=== PATIENT | male | born 1990 | race Caucasian/White ===

== ENCOUNTER 2017-06-28 21:08 | Emergency (ER) | payer SELFPAY ==
[2017-06-28 21:09] VITALS: BP 141/89; PULSE 91; RESP 15; TEMP 36.6; BMI 22.3
--- NOTE | 2017-06-28 21:21 | CT_ITS ---
STUDY: CT ABDOMEN AND PELVIS WITH CONTRAST REASON FOR EXAM: Male, 26 years old. Right upper quadrant pain RADIATION DOSAGE (If Supplied By Facility): CTDIvol = ( 12.20 ) mGy, DLP = ( 605.03 ) mGycm TECHNIQUE: Transaxial images were obtained from the dome of the diaphragm to the symphysis pubis without oral contrast. 100 ml of Isovue 300 contrast was administered. Sagittal and coronal images were reconstructed. Individualized dose optimization techniques were used for this CT. COMPARISON: None. FINDINGS: The visualized lung bases are unremarkable. The visualized portions of the heart are within normal limits. Normal liver. Normal gallbladder and extrahepatic biliary system. Normal spleen. Normal pancreas. Normal bilateral adrenal glands. Normal right kidney. Normal left kidney. Normal visualized stomach. Normal small intestine. Normal colon. The appendix is visualized and appears normal. Normal abdominal aorta. Normal inferior vena cava. Normal retroperitoneum. Normal urinary bladder. Normal abdominal wall. Normal osseous structures. CT/Abdomen/Pelvis WITH Contrast IMPRESSION: Normal enhanced CT of the abdomen and pelvis. Electronically Signed: Olman Kang MD at 0:33 EDT Tel , Service support ,
--- NOTE | 2017-06-28 21:25 | ED.VISSUMM ---
- ER Visit Summary Date of Service: 06/28/17 Chief Complaint: Right upper quadrant pain History of Present Illness: The patient is a 26 M with right upper quadrant pain that started 3 days ago. Pain is waxed and waned but never resolved. He describes it as sharp and is worsened by eating. He is reportedly seen at [facility] and on the following day at [facility]. They state labs and ultrasound were unremarkable. He denies fever, nausea, vomiting, or diarrhea. He has been taking Aleve at home the past couple days but was not taking it on a regular basis previously. Physical Examination: Vital signs are unremarkable. Patient's lying in bed. He appears uncomfortable but he is in no acute distress. Head neck examination is unremarkable. Heart is regular rate and rhythm. Lung sounds are clear. Abdomen is soft with tenderness in the right upper quadrant. There is no guarding. Hypoactive bowel sounds are noted throughout. Back examination was no right CVA tenderness. Test Results: CBC and chemistry studies normal. LFTs and lipase are normal. Emergency Department Course and Treatment: Patient was given a single dose of morphine, Zofran, and IV fluids. On repeat evaluation is resting comfortably. When asked how he was feeling he states he still having pain. CT scan abdomen and pelvis has been performed and official report is pending. This will be signed out to oncoming physician. Assuming the CT is negative, I will give him a very short course of Ultram and have referred him to Dr. Maza to for follow-up on Friday or Friday. Treatment Plan: [] Disposition: Pending CT result Impression: Right upper quadrant pain This note was generated with [employer] dictation software. It may contain incorrect words, spelling, and punctuation that were not noted in review of the chart prior to signing ED Disposition - Plan for ED Patient: Chief Complaint: Abd Pain Referrals: Care Physician,No Primary [Primary Care Provider] -
[2017-06-28] MEDS: 0.9% Normal Saline 1,000 ML 150 ML IV (21:39)
[2017-06-28] MEDS: Morphine 4 MG/ML Syringe IV (21:39)
[2017-06-28] MEDS: Ondansetron 4 MG/2 ML Vial IV (21:39)
[2017-06-28 21:53] LABS: Absolute Lymphocyte Count 1.98 X10^3/ul (0.83-4.51); Absolute Neutrophil Count 6.2 X10^3/uL (2.0-7.7); Basophil# 0.03 X10^3/uL; Basophil% 0.3 % (0-1); Eosinophil# 0.12 X10^3/uL; Eosinophils% 1.3 % (0-5); Hematocrit 46.9 % (40-54); Hemoglobin 16.5 g/dl (13.0-16.5); Lymphocyte # 1.98 X10^3/ul (4.0); Lymphocyte % 22.1 % (19-41); Mean Corp Hgb Conc 35.2 g/gl (32-36); Mean Corpuscular Hgb 31.2 pg (27.0-32.0); Mean Corpuscular Volume 88.7 fL (80-94); Mean Platelet Vol. 11.5 fl (6.2-12.0); Monocyte# 0.64 X10^3/uL; Monocyte% 7.2 % (0-10); Neutrophil # 6.15 X10^3/uL (2.7-7.7); Neutrophil % 68.9 % (47-70); Platelet Count 241 K/mm3 (150-450); RBC Distribution Width SD 42.6 fl (35.1-43.9); Red Blood Count 5.29 M/mm3 (4.6-6.2); White Blood Count 8.9 K/mm3 (4.4-11.0)
[2017-06-28 21:58] LABS: POSITIVE COUNT NO; POSITIVE DIFFERENTIAL NO; POSITIVE MORPHOLOGY NO
[2017-06-28 22:08] LABS: AST(SGOT) 21 U/L (15-37); Alanine Aminotransfer ALT/SGPT 27 U/L (16-61); Albumin, Serum 3.9 g/dL (3.2-5.0); Alkaline Phosphatase 52 U/L (45-117); Anion Gap 5 (5-15); BUN 5 mg/dL (7-18); BUN/Creat Ratio 5.3 RATIO (10-20); Calcium,Total 8.9 mg/dL (8.5-10.1); Chloride 105 mmol/L (98-107); Creatinine, Serum 0.95 mg/dL (0.70-1.30); EST Glomerular Filtration Rate 101 mL/min (>60); Est Glom Filt Rate - Afr Amer 122 mL/min (>60); Globulin 3.2 g/dL (2.2-4.2); Glucose 84 mg/dL (74-106); Lipase 76 U/L (73-393); Protein, Total 7.1 g/dL (6.4-8.2); Sodium Level 141 mmol/L (136-145)
[2017-06-28 22:46] VITALS: BP 142/92; PULSE 73; RESP 18; O2SAT 99
--- NOTE | 2017-06-29 00:13 | ED.DEP ---
ED Disposition - Plan for ED Patient: Disposition: Home or Assisted Living Chief Complaint: Abd Pain Instructions: ED Abdominal Pain Unkn Cause Male Prescriptions: traMADol [Ultram] 50 mg PO Q4H PRN PRN 3 Days #14 tablet PRN Reason: Pain Referrals: Dmitri Vick MD [STAFF PHYSICIAN] - As soon as possible
[2017-06-29 01:16] VITALS: BP 131/83; PULSE 69; RESP 18; O2SAT 97
== END 2017-06-29 01:21 | disposition home or self-care (01) ==
PROVIDERS: Emergency Provider Emergency Medicine
DX: R10.11 Right upper quadrant pain (principal)
CPT/HCPCS: 74177; 80048; 80076; 83690; 85025; 96361; 96374; 96375; 99283; J7030; Q9967; J2405

== ENCOUNTER 2017-08-02 15:11 | Emergency (ER) | payer SELFPAY ==
[2017-08-02 15:13] VITALS: PULSE 93; RESP 15; TEMP 36.8; O2SAT 96; BMI 22.7
[2017-08-02 15:15] VITALS: BP 142/99; PULSE 87; RESP 16; O2SAT 96
[2017-08-02 15:41] LABS: Absolute Lymphocyte Count 1.53 X10^3/ul (0.83-4.51); Absolute Neutrophil Count 8.2 X10^3/uL (2.0-7.7); Basophil# 0.02 X10^3/uL; Basophil% 0.2 % (0-1); Eosinophil# 0.02 X10^3/uL; Eosinophils% 0.2 % (0-5); Hematocrit 46.2 % (40-54); Hemoglobin 16.6 g/dl (13.0-16.5); Lymphocyte # 1.53 X10^3/ul (4.0); Lymphocyte % 14.4 % (19-41); Mean Corp Hgb Conc 35.9 g/gl (32-36); Mean Corpuscular Hgb 31.1 pg (27.0-32.0); Mean Corpuscular Volume 86.5 fL (80-94); Mean Platelet Vol. 11.4 fl (6.2-12.0); Monocyte# 0.83 X10^3/uL; Monocyte% 7.8 % (0-10); Neutrophil # 8.22 X10^3/uL (2.7-7.7); Neutrophil % 77.1 % (47-70); Platelet Count 250 K/mm3 (150-450); RBC Distribution Width CV 12.9 % (11.6-14.6); RBC Distribution Width SD 40.7 fl (35.1-43.9); Red Blood Count 5.34 M/mm3 (4.6-6.2); White Blood Count 10.7 K/mm3 (4.4-11.0)
[2017-08-02 15:42] LABS: POSITIVE COUNT NO; POSITIVE DIFFERENTIAL NO; POSITIVE MORPHOLOGY NO
[2017-08-02] MEDS: Ondansetron 4 MG/2 ML Vial IV (15:44)
[2017-08-02] MEDS: 0.9% Normal Saline 1,000 ML 1000 ML IV (15:45)
[2017-08-02] MEDS: Morphine 4 MG/ML Syringe IV (15:45)
[2017-08-02 15:49] VITALS: BP 128/87; PULSE 82; RESP 16; O2SAT 95
[2017-08-02 15:59] LABS: AST(SGOT) 16 U/L (15-37); Alanine Aminotransfer ALT/SGPT 28 U/L (16-61); Albumin, Serum 4.4 g/dL (3.2-5.0); Alkaline Phosphatase 67 U/L (45-117); Anion Gap 6 (5-15); BUN 3 mg/dL (7-18); BUN/Creat Ratio 3.1 RATIO (10-20); Bilirubin, Direct 0.22 mg/dL (0.00-0.30); Calcium,Total 9.4 mg/dL (8.5-10.1); Chloride 104 mmol/L (98-107); Creatinine, Serum 0.97 mg/dL (0.70-1.30); EST Glomerular Filtration Rate 98 mL/min (>60); Est Glom Filt Rate - Afr Amer 119 mL/min (>60); Estimated Creatinine Clearance 119.73 ml/min; Globulin 3.6 g/dL (2.2-4.2); Glucose 90 mg/dL (74-106); Lipase 52 U/L (73-393); Potassium 3.3 mmol/L (3.5-5.1); Sodium Level 139 mmol/L (136-145)
[2017-08-02 16:50] VITALS: BP 132/89; PULSE 88; RESP 16; O2SAT 99
--- NOTE | 2017-08-02 17:11 | EKG12_ITS ---
Test Reason : CP Blood Pressure : / mmHG Vent. Rate : 085 BPM Atrial Rate : 085 BPM P-R Int : 130 ms QRS Dur : 082 ms QT Int : 364 ms P-R-T Axes : 066 045 044 degrees QTc Int : 433 ms Normal sinus rhythm Normal ECG Confirmed by MEGHAN VILLAR, MARGO ([id number]), business editor BRENNON KHAN ([id number] on 08/05/2017 10:15:58 AM Referred By: ANIKA Confirmed By:MARGO CHRISTIANSON MD
--- NOTE | 2017-08-02 18:06 | ED.VISSUMM ---
- ER Visit Summary Date of Service: 08/02/17 Chief Complaint: Upper abdominal pain not chest pain as documented by triage History of Present Illness: The patient is a 26 M who presents with upper abdominal pain for the past several days. He reports nausea and vomiting for 2-3 weeks. He reports diarrhea for the past 4 days. He states he has had a 6 pound weight loss over the past month. He states the pain is sharp. The pain does not radiate. He denies any intolerance to any specific foods. Says any food causes his pain to be worse. He denies hematemesis, melena hematochezia. He was a drinker until 3 weeks ago. He states he did drink heavily at one time. He has no history of pancreatitis. He denies fever, chills night sweats. He denies any ocular, visual auditory symptoms. Denies chest pain, palpitations or rapid heartbeat. He denies dyspnea on exertion or orthopnea, or PND. He does report slight cough occasionally. He is a non-smoker. He denies dysuria, frequency, urgency or hematuria. He denies myalgias, arthralgias or back pain. He denies rash. He denies any anesthesia, paresthesia or motor weakness. He denies headache. He denies bruising easily. Physical Examination: Patient vitals are micromelic blood pressure 142/99. Head is atraumatic normocephalic. Pupils are equal round reactive. Extraocular muscles are intact. TMs are pearly white with landmarks noted. Nares patent with no drainage. Posterior pharynx without erythema or exudate. Uvula is midline. There is no dysphonia or dysphasia. Trachea is midline. There is no stridor with auscultation of the neck. Heart is regular without murmur, gallop or rub. S1 and S2 are normal. Lungs are clear to auscultation with good movement of air bilaterally. Abdomen is remarkable for tenderness in the epigastric area. There is no hepatosplenomegaly. Negative Shea sign. There are no dermatologic lesions noted. There is no palpable pulsatile mass abdominal bruit. There is evidence of umbilical or inguinal hernia. There is no CVA tenderness noted. He is alert oriented with nonfocal neurologic exam. Test Results: CBC is unremarkable. BMP is unremarkable. Hepatic and lipase are unremarkable. Emergency Department Course and Treatment: With history of heavy drinking and upper abdominal pain hepatic and lipase were obtained to evaluate for alcoholic liver disease, pancreatitis etc. CBC was obtained to evaluate for anemia or possible leukemia. In light of his complaint of vomiting weight loss BMP was obtained to assess electrolytes and BUN and creatinine to calculate glomerular filtration rate. Treatment Plan: Patient was told the etiology of his pain is unknown. Recommend follow-up at [facility] since he is uninsured. Disposition: Discharged to home with family Impression: Bilateral upper abdominal pain with nausea vomiting of unknown cause This note was generated with clinovo dictation software. It may contain incorrect words, spelling, and punctuation that were not noted in review of the chart prior to signing ED Disposition - Plan for ED Patient: Disposition: Home or Assisted Living Chief Complaint: Chest Pain Instructions: ED Abdominal Pain Unkn Cause Male Referrals: Macy De [facility]se[facility] [NON-STAFF] - Care Physician,No Primary [Primary Care Provider] - 3-5 Days Additional Instructions: Recommend purchasing Pepcid [id number] medication and taking 1 tablet in the morning 1 tablet in the evening for the next 2-3 weeks to determine if there is any improvement.
--- NOTE | 2017-08-02 18:11 | ED.DCSUM_ITS ---
- ER Visit Summary Date of Service: 08/02/17 Chief Complaint: Upper abdominal pain not chest pain as documented by triage History of Present Illness: The patient is a 26 M who presents with upper abdominal pain for the past several days. He reports nausea and vomiting for 2- 3 weeks. He reports diarrhea for the past 4 days. He states he has had a 6 pound weight loss over the past month. He states the pain is sharp. The pain does not radiate. He denies any intolerance to any specific foods. Says any food causes his pain to be worse. He denies hematemesis, melena hematochezia. He was a drinker until 3 weeks ago. He states he did drink heavily at one time. He has no history of pancreatitis. He denies fever, chills night sweats. He denies any ocular, visual auditory symptoms. Denies chest pain, palpitations or rapid heartbeat. He denies dyspnea on exertion or orthopnea, or PND. He does report slight cough occasionally. He is a non-smoker. He denies dysuria, frequency, urgency or hematuria. He denies myalgias, arthralgias or back pain. He denies rash. He denies any anesthesia, paresthesia or motor weakness. He denies headache. He denies bruising easily. Physical Examination: Patient vitals are micromelic blood pressure 142/99. Head is atraumatic normocephalic. Pupils are equal round reactive. Extraocular muscles are intact. TMs are pearly white with landmarks noted. Nares patent with no drainage. Posterior pharynx without erythema or exudate. Uvula is midline. There is no dysphonia or dysphasia. Trachea is midline. There is no stridor with auscultation of the neck. Heart is regular without murmur, gallop or rub. S1 and S2 are normal. Lungs are clear to auscultation with good movement of air bilaterally. Abdomen is remarkable for tenderness in the epigastric area. There is no hepatosplenomegaly. Negative Shea sign. There are no dermatologic lesions noted. There is no palpable pulsatile mass abdominal bruit. There is evidence of umbilical or inguinal hernia. There is no CVA tenderness noted. He is alert oriented with nonfocal neurologic exam. Test Results: CBC is unremarkable. BMP is unremarkable. Hepatic and lipase are unremarkable. Emergency Department Course and Treatment: With history of heavy drinking and upper abdominal pain hepatic and lipase were obtained to evaluate for alcoholic liver disease, pancreatitis etc. CBC was obtained to evaluate for anemia or possible leukemia. In light of his complaint of vomiting weight loss BMP was obtained to assess electrolytes and BUN and creatinine to calculate glomerular filtration rate. Treatment Plan: Patient was told the etiology of his pain is unknown. Recommend follow-up at [facility] since he is uninsured. Disposition: Discharged to home with family Impression: Bilateral upper abdominal pain with nausea vomiting of unknown cause This note was generated with [employer] dictation software. It may contain incorrect words, spelling, and punctuation that were not noted in review of the chart prior to signing ED Disposition - Plan for ED Patient: Disposition: Home or Assisted Living Chief Complaint: Chest Pain Instructions: ED Abdominal Pain Unkn Cause Male Referrals: [facility] De [facility] [NON-STAFF] - Care Physician,No Primary [Primary Care Provider] - 3-5 Days Additional Instructions: Recommend purchasing Pepcid [id number] medication and taking 1 tablet in the morning 1 tablet in the evening for the next 2-3 weeks to determine if there is any improvement.
[2017-08-02 18:17] VITALS: BP 145/103; PULSE 92; RESP 19; O2SAT 96
[2017-08-02 18:50] VITALS: BP 141/97; PULSE 89; RESP 17; O2SAT 98
== END 2017-08-02 18:51 | disposition home or self-care (01) ==
PROVIDERS: Emergency Provider Emergency Medicine
DX: R10.12 Left upper quadrant pain (principal); R10.11 Right upper quadrant pain; R11.2 Nausea with vomiting, unspecified
CPT/HCPCS: 80048; 80076; 83690; 85025; 93005; 96361; 96374; 96375; 99284; J7030; A4216; J2405

== ENCOUNTER 2017-08-03 11:07 | Emergency (ER) | payer SELFPAY ==
[2017-08-03 11:08] VITALS: BP 131/88; PULSE 94; RESP 17; TEMP 37.1; O2SAT 97; BMI 23.1
[2017-08-03 11:36] LABS: Absolute Lymphocyte Count 1.75 X10^3/ul (0.83-4.51); Absolute Neutrophil Count 5.7 X10^3/uL (2.0-7.7); Basophil# 0.01 X10^3/uL; Basophil% 0.1 % (0-1); Eosinophil# 0.08 X10^3/uL; Hematocrit 43.9 % (40-54); Hemoglobin 15.7 g/dl (13.0-16.5); Lymphocyte # 1.75 X10^3/ul (4.0); Lymphocyte % 21.1 % (19-41); Mean Corp Hgb Conc 35.8 g/gl (32-36); Mean Corpuscular Hgb 31.4 pg (27.0-32.0); Mean Corpuscular Volume 87.8 fL (80-94); Mean Platelet Vol. 11.4 fl (6.2-12.0); Monocyte# 0.76 X10^3/uL; Monocyte% 9.2 % (0-10); Neutrophil # 5.69 X10^3/uL (2.7-7.7); Neutrophil % 68.5 % (47-70); Platelet Count 242 K/mm3 (150-450); RBC Distribution Width CV 13.1 % (11.6-14.6); RBC Distribution Width SD 41.3 fl (35.1-43.9); White Blood Count 8.3 K/mm3 (4.4-11.0)
[2017-08-03 11:41] LABS: POSITIVE COUNT NO; POSITIVE DIFFERENTIAL NO; POSITIVE MORPHOLOGY NO
[2017-08-03 11:48] LABS: AST(SGOT) 19 U/L (15-37); Alanine Aminotransfer ALT/SGPT 24 U/L (16-61); Albumin, Serum 3.9 g/dL (3.2-5.0); Alkaline Phosphatase 63 U/L (45-117); Anion Gap 4 (5-15); BUN 5 mg/dL (7-18); Bilirubin, Direct 0.19 mg/dL (0.00-0.30); Calcium,Total 8.8 mg/dL (8.5-10.1); Chloride 105 mmol/L (98-107); Creatinine, Serum 1.01 mg/dL (0.70-1.30); EST Glomerular Filtration Rate 94 mL/min (>60); Est Glom Filt Rate - Afr Amer 113 mL/min (>60); Globulin 3.6 g/dL (2.2-4.2); Glucose 89 mg/dL (74-106); Lipase 127 U/L (73-393); Potassium 3.5 mmol/L (3.5-5.1); Protein, Total 7.5 g/dL (6.4-8.2); Sodium Level 138 mmol/L (136-145)
[2017-08-03] MEDS: 0.9% Normal Saline 1,000 ML 1000 ML IV (11:50)
[2017-08-03] MEDS: Ondansetron 4 MG/2 ML Vial IV (11:50)
[2017-08-03] MEDS: Morphine 4 MG/ML Syringe IV (11:52)
--- NOTE | 2017-08-03 11:52 | ED.RN ---
PT APPEARS TO BE RESTING COMFORTABLY IN BED. STATES PAIN IS 10/10. ON CELL PHONE.
--- NOTE | 2017-08-03 11:55 | CT_ITS ---
STUDY: CT ABDOMEN AND PELVIS WITHOUT CONTRAST REASON FOR EXAM: Male, 26 years old. Right-sided abdominal pain RADIATION DOSAGE (If Supplied By Facility): CTDIvol = ( 6.40 ) mGy, DLP = ( 350.13 ) mGycm TECHNIQUE: Transaxial images were obtained from the dome of the diaphragm to the symphysis pubis without oral contrast, and without intravenous contrast. Sagittal and coronal images were reconstructed. Individualized dose optimization techniques were used for this CT. COMPARISON: 06/28/2017 FINDINGS: The visualized lung bases are unremarkable. The visualized portions of the heart are within normal limits. Normal liver. Normal gallbladder and extrahepatic biliary system. Normal spleen. Normal pancreas. Normal bilateral adrenal glands. Normal right kidney. Normal left kidney. Normal visualized stomach. Normal small intestine. Normal colon. The appendix is visualized and appears normal. Normal abdominal aorta. Normal inferior vena cava. Normal retroperitoneum. Normal urinary bladder. Normal abdominal wall. Nondisplaced bilateral pars interarticularis defects at the L5 level. CT/Abdomen/Pelvis without Cont IMPRESSION: No evidence of appendicitis, acute intestinal pathology or acute obstructive uropathy. Electronically Signed: Dwain Shipley MD at 12:43 EDT Tel , Service support ,
--- NOTE | 2017-08-03 11:58 | ED.DCSUM_ITS ---
- ER Visit Summary Date of Service: 08/03/17 Chief Complaint: [] rt Sided abdominal pain that began this morning History of Present Illness: The patient is a 26 M [] patient reports he has been having right-sided abdominal pain that began this morning it was worse when he was in restorationist today and he was brought to the emergency department he has had chronic diarrhea for the last 5 days consisting of water he has not been exposed anyone who is been ill, no tainted food, he is able to eat and drink his bowel bladder habits otherwise unremarkable. He initially indicated that he has never had this type of pain in the past, he also indicates that he was a heavy drinker in the past but nothing recent he has had no fever no cough he takes his hand and draws across the right upper quadrant as focus of pain Further conversations with the patient's family apparently has had multiple ultrasounds in the past possibly CAT scans in the past, and other studies although he indicates he does not have abdominal pain I questioned him that if he had the studies is likely that he does have abdominal pain and that is why the studies were ordered then he recalls a prior history of abdominal pain and in fact he apparently was seen yesterday in the emergency department for complaints of abdominal pain So based on additional information it appears this pain is really not new when I reviewed the computer he in fact has seen a surgeon for right upper quadrant pain and was diagnosed with gastritis given that all of his other studies were negative in the past Physical Examination: [] He is in no distress his vital signs are normal head neck chest unremarkable the abdomen is soft he complains subjectively of vague pain to the right upper abdomen there is no rebound or guarding there is no pain below the bellybutton backs unremarkable upper lower extremity's are normal he is awake moving all 4 is in the room with his mother Test Results: [] Emergency Department Course and Treatment: [] It is a very convoluted story on the part of the patient based on my understanding and the data in the computer it appears this abdominal pain is not new but rather something that is acute and recurrent and he has had extensive prior outpatient evaluation for, however given that he is coming back within 12 hours of her prior ER visit he will obtain IV fluids screening labs CT of abdomen The patient studies including the CT are completely unremarkable please see those reports I have explained all this to the patient. I have explained to him that when he provides history from this point forward he should explained providers in fact he has a history of this type of abdominal pain his workup has been unremarkable Been seen by multiple providers as an outpatient for this abdominal pain he is instructed to follow the instructions she was given by those providers including the use of proton pump inhibitors either by prescription or over-the- counter, bland diet and following up with them for further management Treatment Plan: [] Disposition: [] Stable home Impression: [] Recurrent abdominal pain This note was generated with [employer] dictation software. It may contain incorrect words, spelling, and punctuation that were not noted in review of the chart prior to signing ED Disposition - Plan for ED Patient: Chief Complaint: Abd Pain Referrals: Care Physician,No Primary [Primary Care Provider] -
[2017-08-03 12:15] LABS: Bacteria 0 SEEN /hpf (None Seen); Mucous, Urine 0 SEEN /hpf (<or=2+); Red Blood Cells-Urine 0 SEEN /hpf (0-5); Squamous Epithelial Cells - UA 0 SEEN /hpf (0-5); White Blood Cells 0 SEEN /hpf (0-5)
[2017-08-03 12:19] LABS: Color, Urine Yellow (Yellow); Glucose, Dipstick Normal (Normal); Ketone-Dipstick Negative (Negative); Leukocyte Esterase-Dipstick Negative /ul (Negative); Nitrite-Dipstick Negative (Negative); Occult Blood-Urine Negative /ul (Negative); Protein-Dipstick Negative (Negative); Specific Gravity, Urine 1.015 (1.002-1.030); Urine Bilirubin Dipstick Negative (Negative); Urine Clarity Clear (Clear); Urine Urobilinogen Normal (Normal)
--- NOTE | 2017-08-03 14:01 | ED.DEP ---
ED Disposition - Plan for ED Patient: Chief Complaint: Abd Pain Instructions: ED Abdominal Pain Unkn Cause Referrals: Care Physician,No Primary [Primary Care Provider] - [facility] [NON-STAFF] -
[2017-08-03 14:36] VITALS: BP 123/87; PULSE 87; RESP 16; O2SAT 98
== END 2017-08-03 14:37 | disposition home or self-care (01) ==
PROVIDERS: Emergency Provider Emergency Medicine
DX: R10.11 Right upper quadrant pain (principal)
CPT/HCPCS: 74176; 80048; 80076; 81001; 83690; 85025; 96361; 96374; 96375; 99283; J7030; A4216; J2405

== ENCOUNTER 2017-08-14 22:51 | Emergency (ER) | payer SELFPAY ==
[2017-08-14 22:52] VITALS: BP 129/73; PULSE 96; RESP 12; TEMP 35.8; O2SAT 95; BMI 23.1
--- NOTE | 2017-08-14 22:54 | RAD_ITS ---
STUDY: X-RAY - PELVIS AND LEFT HIP REASON FOR EXAM: Male, 26 years old. Falling injury. TECHNIQUE: Radiological exam, hip, unilateral, with pelvis when performed; 2 or 3 views. COMPARISON: None. FINDINGS: There is a non-specific bowel gas pattern. Normal visualized soft tissue structures. Normal bilateral iliac wings, sacroiliac joints and visualized sacrum. Normal bilateral superior and inferior pubic rami. Normal pubic symphysis. Normal bilateral ischial tuberosities. Normal visualized femoral head. Normal acetabulum. Normal hip joint. RAD/Hip 2-3 Views with Pelvis IMPRESSION: Normal x-ray examination of the pelvis and hip. Electronically Signed: Gisella Parr MD at 23:30 EDT , Service support ,
--- NOTE | 2017-08-14 22:54 | RAD_ITS ---
STUDY: X-RAY - LEFT KNEE REASON FOR EXAM: Male, 26 years old. Pain after fall TECHNIQUE: Two view(s) of the knee were obtained. COMPARISON: None. FINDINGS: The distal femur is unremarkable. The proximal tibia is unremarkable. Normal medial femorotibial compartment. Normal lateral femorotibial compartment. Normal patellofemoral articulation. There is no fullness above the patella. The soft tissue structures are unremarkable. RAD/Knee 1 or 2 Views IMPRESSION: No acute abnormalities are seen in the left knee. Electronically Signed: Maryam Sal MD at 23:31 EDT Tel Direct: [phone], Service support ,
--- NOTE | 2017-08-14 23:00 | RAD_ITS ---
STUDY: X-RAY - LEFT FEMUR REASON FOR STUDY: Male, 26 years old. Falling injury of the left upper leg. TECHNIQUE: Radiological exam, femur, minimum 2 views COMPARISON: None. FINDINGS: Normal visualized femur. Normal visualized soft tissue structure. There is no demonstrated fracture or destructive process. RAD/Femur Min 2 Views IMPRESSION: Normal x-ray examination of the femur. Electronically Signed: Gisella Parr MD at 23:26 EDT , Service support ,
--- NOTE | 2017-08-15 00:09 | ED.DCSUM_ITS ---
- ER Visit Summary Date of Service: 08/15/17 Chief Complaint: Left thigh pain History of Present Illness: The patient is a 26 M with no primary care physician. Reports that approximately 10:00 this evening he tripped over a curb and fell and landing on his left hip. Reports he has a sharp pains 10 at 10 severity. Is worsened by walking. Is not taking anything for this. Denies any paresthesias distally. No blow to the head or loss of consciousness. No other injuries or complaints. Physical Examination: Vitals: Stable. Afebrile. Neck: No vertebral tenderness. Full ROM without difficulty. Cleared by NEXUS criteria. Back: No vertebral tenderness. General: A&O x 3. NAD. Cardiovascular exam: Regular rate and rhythm, no murmur, rub or gallop. Respiratory exam: Chest nontender. No crepitus. Clear to auscultation bilaterally. No wheezes or stridor. Abdominal exam: Soft, nontender, nondistended, normal bowel sounds. No pain in RUQ or LUQ specifically. No peritoneal signs. Extremity: Moderate tenderness palpation over the left greater trochanter. Mild tenderness palpation over the entire left thigh both anteriorly and posteriorly. Mild tenderness palpation is diffuse over his knee. No pain or ligamentous instability with anterior posterior drawer or mediolateral stress. He has good range of motion without any difficulty.. Test Results: Triage x-rays of the left hip, femur, and knee are normal. Emergency Department Course and Treatment: Patient was treated with naproxen. Treatment Plan: Patient will be discharged on naproxen. He will be placed on crutches at his request. Instructed to follow-up the [facility] in 1 week if not improving. Disposition: To home in improved and stable condition. Impression: 1. Left hip contusion. 2. Fall. This note was generated with [employer] dictation software. It may contain incorrect words, spelling, and punctuation that were not noted in review of the chart prior to signing ED Disposition - Plan for ED Patient: Disposition: Home or Assisted Living Chief Complaint: Lower Extremity Injury Instructions: ED Contusion Hip Prescriptions: Naproxen [Naprosyn] 500 mg PO BID #20 tablet Referrals: Macy De Jesus [NON-STAFF] - 1 Week if not improving
[2017-08-15] MEDS: Naproxen 250 MG Tablet 500 MG PO (00:37)
== END 2017-08-15 00:44 | disposition home or self-care (01) ==
LOC: ED 08-15 00:33
PROVIDERS: Emergency Provider Emergency Medicine
DX: S70.02XA Contusion of left hip, initial encounter (principal); W18.09XA Striking against other object with subsequent fall, initial encounter; Y93.9 Activity, unspecified; Y92.9 Unspecified place or not applicable
CPT/HCPCS: 73502; 73552; 73560; 99284

== ENCOUNTER 2017-08-15 07:44 | Day surgery (SDC) | payer SELFPAY ==
[2017-08-15] VITALS (7 sets, daily range): BP systolic 111–135; BP diastolic 74–82; PULSE 61–73; RESP 14–18; TEMP 35.5–36.8; O2SAT 93–97; BMI 21.9
--- NOTE | 2017-08-15 | GASB_PTH ---
PATIENT: SEINA JOSHUA III LOC: EN U#:[id number] AGE/SX: 26/M ROOM: RE08/15/[address]: Dr. Dmitri Vick MD : 1990 BED: DIS: 08/15/2017 SPEC #: [id number] RECD: 08/15/17 14:19 STATUS: AYOJeancarlos POLI #: [id number] ANJALI: 08/15/17 00:[address]: Dmitri Vick DEPT: SURGICAL PATHOLOGY RECD BY: Erik العلي ENTERED: 08/18/17 08:46 SP TYPE: Gastric Bx OTHR DR: No Primary Care Phys Tissues: Gastric mucous membrane Procedures: Surgery Specimen Level IV HEADER OPERATION: EGD PRE-OP DIAGNOSIS: Epigastric pain TISSUE SUBMITTED: Antral biopsy for H. pylori and path MICROSCOPIC DIAGNOSIS Antral biopsy: Chronic active gastritis. SJ:jair 08/19/17 COMMENT The results of immunohistochemistry for Helicobacter pylori will be reported separately ([id number]). MICROSCOPIC DESCRIPTION Slides are reviewed. GROSS DESCRIPTION Received in fixative is one container labeled with the patient's name and designated antral biopsy. The specimen consists of one irregular fragment of light montano soft tissue that measures 0.3 x 0.2 x 0.1 cm. The specimen is totally submitted in one cassette. / SJ:rg 08/18/17 TC:2 [facility]: [id number]
--- NOTE | 2017-08-15 | IMM_PTH ---
PATIENT: SIENA JOSHUA III LOC: EN U#:[id number] AGE/SX: 26/M ROOM: RE08/15/[address]: Dr. Dmitri Vick MD : 1990 BED: DIS: 08/15/2017 SPEC #: [id number] RECD: 08/19/17 13:09 STATUS: IVAN ASHTON #: [id number] ANJALI: 08/15/17 00:[address]: Dmitri Vick DEPT: IMMUNOHISTOCHEMISTRY RECD BY: Yeni Dougherty ENTERED: 08/19/17 13:09 SP TYPE: IMMUNO OTHR DR: No Primary Care Phys Tissues: Stomach, NOS Procedures: H Pylori (initial) PHYSICIAN & INSTITUTION [place] [id number] SPECIMEN INFORMATION: Tissue Source: Antral biopsy Clinical Info: Epigastric pain Specimen Number: [id number] CPT code: 32917 METHODOLOGY: Deparaffinized sections of prefer/formalin-fixed tissue or PAP/DQ stained slides are incubated with monoclonal/polyclonal antibodies/oligonucleotide probes. Localization is made via biotin free immunoperoxidase method. Appropriate controls are performed and reacted as expected. Results on target cell population are indicated in the following table: RESULTS: ANTIBODY / CLONE RESULT H Pylori (polyclonal) positive These tests were developed and their performance characteristics determined by [facility]. They may not have been cleared or approved by the U.S. Food and Drug Administration. The FDA has determined that such clearance or approval is not necessary. INTERPRETATION: Antral biopsy: Positive for Helicobacter pylori organisms. TIKI:jair 08/20/17
--- NOTE | 2017-08-15 09:14 | OP.PCM_ITS ---
Problem List (1) Epigastric abdominal pain Status: Acute Report of Operation Date of Procedure: 08/15/17 Pre-Operative Diagnosis: Epigastric pain Post-Operative Diagnosis: 1. Small hiatal hernia. 2. Gastritis with punctate bleeding Surgery/Procedure Performed:: EGD with biopsy Specimen's removed: Antrum biopsy Description of Procedure: The major risks and benefits associated with the procedure were explained to the patient in detail. The patient verbalized understanding and agreement with the same. The patient was then placed in the left lateral decubitus position. IV sedation was started by anesthesia. The endoscope was then advanced under direct visualization over the tongue, into the esophagus , stomach and duodenum. It was slowly withdrawn and the mucosa was carefully evaluated. Duodenal mucosal abnormalities were not visualized. The pylorus and antrum of the stomach had punctate bleeding and gastritis. The remainder of the stomach was normal and gastric folds are normal in the remainder of the stomach. Retroflexed views of the stomach did reveal small hiatal hernia. A biopsy of the antrum was performed with cold forceps. The scope was then withdrawn through the GE junction and careful examination did not demonstrate any mucosal abnormalities. No evidence of Lane's esophagus was apparent. Careful examination of the remainder of the esophagus was normal. The scope was then withdrawn from the patient and the procedure terminated. It was well tolerated and there were no immediate complications.
== END 2017-08-15 10:02 | disposition home or self-care (01) ==
LOC: EN 07:46 → AC 07:47
PROVIDERS: Visit Provider Surgery
PROC: 0DJ08ZZ Inspection of Upper Intestinal Tract, Via Natural or Artificial Opening Endoscopic (ICD-10-PCS; CPT 43235; principal; 2017-08-15 08:40)
DX: K29.50 Unspecified chronic gastritis without bleeding (principal); K44.9 Diaphragmatic hernia without obstruction or gangrene; B96.81 Helicobacter pylori [H. pylori] as the cause of diseases classified elsewhere; F17.200 Nicotine dependence, unspecified, uncomplicated
CPT/HCPCS: 43239; 88305; 88342; J7120

== ENCOUNTER 2017-08-19 00:01 | Emergency (ER) | payer SELFPAY ==
[2017-08-19 00:01] VITALS: BP 108/75; PULSE 102; RESP 18; TEMP 36.6; O2SAT 95; BMI 21.6
--- NOTE | 2017-08-19 01:05 | ED.DCSUM_ITS ---
- ER Visit Summary Date of Service: 08/19/17 Chief Complaint: [] Low back injury History of Present Illness: The patient is a 26 M patient was seen 3 days ago at our facility after a fall. He was given ibuprofen. He has been using this and Tylenol. Continues to have low back discomfort after he tripped off of a curb and fell onto his hip. He is having some sharp low back pain or radiation to the legs. No associated symptoms. Physical Examination: [] Vital signs reviewed General: Well-nourished well-developed Head: Normocephalic atraumatic Eyes: Pupils equal round and reactive to light extraocular movements intact ENT: TMs clear no hemotympanum no trauma Neck: Nontender full range of motion Cardiovascular: Regular rate rhythm no murmurs normal S1-S2 Respiratory: No distress clear to auscultation bilaterally chest nontender Abdomen: Soft nontender nondistended normal bowel sounds no masses Back: Tenderness diffuse low back without swelling or deformity. Decreased range of motion secondary to pain. Extremities: Nontender active range of motion ?4 extremities no trauma Skin: Normal color no trauma Neuro alert oriented cranial nerves II through XII intact normal strength sensation reflexes Test Results: [] Emergency Department Course and Treatment: [] I discussed with the patient that it can take 10-14 days for his low back strain to heal. I do not think he needs imaging studies. He is given a shot of morphine. Will continue Tylenol and ibuprofen as an outpatient. Treatment Plan: [] Disposition: [] Impression: [] Low back strain status post fall This note was generated with [employer] dictation software. It may contain incorrect words, spelling, and punctuation that were not noted in review of the chart prior to signing ED Disposition - Plan for ED Patient: Chief Complaint: Back Referrals: Care Physician,No Primary [Primary Care Provider] -
--- NOTE | 2017-08-19 01:05 | ED.DEP ---
ED Disposition - Plan for ED Patient: Disposition: Home or Assisted Living Chief Complaint: Back Instructions: ED Sprain Strain Lumbar Referrals: Care Physician,No Primary [Primary Care Provider] - René Cortez DO [NON CLINICAL AFFILIATE] -
[2017-08-19] MEDS: Morphine 4 MG/ML Syringe IM (01:11)
[2017-08-19 01:30] VITALS: RESP 16
== END 2017-08-19 01:34 | disposition home or self-care (01) ==
PROVIDERS: Emergency Provider Emergency Medicine
DX: S39.012A Strain of muscle, fascia and tendon of lower back, initial encounter (principal); W01.0XXA Fall on same level from slipping, tripping and stumbling without subsequent striking against object, initial encounter; Y93.9 Activity, unspecified; Y92.9 Unspecified place or not applicable
CPT/HCPCS: 96372; 99282

== ENCOUNTER 2017-08-21 23:24 | Observation (INO) | payer MEDICAID, SELFPAY ==
[2017-08-21 23:27] VITALS: BP 160/98; PULSE 106; RESP 18; TEMP 36.7; O2SAT 99; BMI 21.8
--- NOTE | 2017-08-21 23:39 | EKG12_ITS ---
Test Reason : GI BLEED Blood Pressure : / mmHG Vent. Rate : 094 BPM Atrial Rate : 094 BPM P-R Int : 138 ms QRS Dur : 084 ms QT Int : 356 ms P-R-T Axes : 058 042 037 degrees QTc Int : 445 ms Normal sinus rhythm with sinus arrhythmia Normal ECG Confirmed by MEGHAN VILLAR, MARGO ([id number]), social media editor ROSEMARY VENTURA ([id number]) on 08/26/2017 2:14:07 PM Referred By: TOM Confirmed By:MARGO CHRISTIANSON MD
[2017-08-21 23:54] LABS: Absolute Lymphocyte Count 2.04 X10^3/ul (0.83-4.51); Absolute Neutrophil Count 5.2 X10^3/uL (2.0-7.7); Basophil# 0.01 X10^3/uL; Basophil% 0.1 % (0-1); Eosinophil# 0.09 X10^3/uL; Eosinophils% 1.1 % (0-5); Hematocrit 43.9 % (40-54); Hemoglobin 15.2 g/dl (13.0-16.5); Lymphocyte # 2.04 X10^3/ul (4.0); Lymphocyte % 25.4 % (19-41); Mean Corp Hgb Conc 34.6 g/gl (32-36); Mean Corpuscular Hgb 30.5 pg (27.0-32.0); Mean Corpuscular Volume 88.2 fL (80-94); Mean Platelet Vol. 11.3 fl (6.2-12.0); Monocyte% 8.7 % (0-10); Neutrophil # 5.19 X10^3/uL (2.7-7.7); Neutrophil % 64.6 % (47-70); Platelet Count 223 K/mm3 (150-450); RBC Distribution Width CV 13.1 % (11.6-14.6); RBC Distribution Width SD 42.4 fl (35.1-43.9); Red Blood Count 4.98 M/mm3 (4.6-6.2)
[2017-08-22] MEDS: 0.9% Normal Saline 1,000 ML 1000 ML IV
[2017-08-22 00:03] LABS: POSITIVE COUNT NO; POSITIVE DIFFERENTIAL NO; POSITIVE MORPHOLOGY NO
[2017-08-22] MEDS: Ondansetron 4 MG/2 ML Vial IV (00:04)
[2017-08-22] MEDS: Morphine 4 MG/ML Syringe IV (00:04)
[2017-08-22 00:10] VITALS: BP 124/81; BP 129/90; BP 132/85; PULSE 81; PULSE 88; PULSE 99
[2017-08-22 00:25] LABS: ALB/GLOB Ratio 1.1 RATIO (0.9-2.4); AST(SGOT) 21 U/L (15-37); Alanine Aminotransfer ALT/SGPT 23 U/L (16-61); Albumin, Serum 3.9 g/dL (3.2-5.0); Alkaline Phosphatase 57 U/L (45-117); Anion Gap 7 (5-15); BUN 6 mg/dL (7-18); BUN/Creat Ratio 5.9 RATIO (10-20); Calcium,Total 8.7 mg/dL (8.5-10.1); Chloride 102 mmol/L (98-107); Creatinine, Serum 1.02 mg/dL (0.70-1.30); EST Glomerular Filtration Rate 93 mL/min (>60); Est Glom Filt Rate - Afr Amer 112 mL/min (>60); Estimated Creatinine Clearance 109.09 ml/min; Globulin 3.5 g/dL (2.2-4.2); Glucose 90 mg/dL (74-106); Lipase 66 U/L (73-393); Potassium 3.3 mmol/L (3.5-5.1); Protein, Total 7.4 g/dL (6.4-8.2); Sodium Level 140 mmol/L (136-145)
[2017-08-22 00:29] LABS: Prothrombin Time (Protime)PT. 13.2 SECONDS (11.7-14.9)
--- NOTE | 2017-08-22 01:22 | ED.DCSUM_ITS ---
- ER Visit Summary Date of Service: 08/22/17 Chief Complaint: Abdominal pain History of Present Illness: The patient is a 26 M who presents with abdominal pain and hematemesis. He has a history of known gastritis. He did have some bleeding on recent EGD. He states over the last 2-3 days he has had multiple episodes of emesis with bright red blood. His last episode was about 15 minutes prior to arrival here. He states he vomited multiple times and is been much worse since about 6:00 today. He denies any recent NSAID use. He does occasionally drink alcohol. He denies diarrhea melanotic stools hematochezia. He complains of epigastric abdominal pain. Patient states he has been lightheaded and dizzy and felt as if he was going to pass out on presentation here to triage. Physical Examination: Heart rate 106 vitals otherwise normal No apparent distress Heart regular rhythm slightly tachycardic Lungs are clear Abdomen soft Alert Test Results: EKG shows normal sinus rhythm at a rate of 94. Labs unremarkable with normal hemoglobin. Orthostatic vital signs were negative. Emergency Department Course and Treatment: Patient was given morphine and Zofran for symptoms. He was given a Protonix bolus and started on an infusion. Orthostatic vital signs however were unremarkable and he did repeat return with normal hemoglobin and his heart rate improved with IV fluids. Protonix infusion discontinued. I spoke to Dr. Nava chouting the patient's case. He did note that he was also positive for H pylori and will need to be started on quadruple therapy. I am concerned given the patient's report of multiple episodes of hematemesis his initial tachycardia and dizziness and felt that at minimum he should be observed for repeat hemoglobins and monitoring. Patient discussed the hospitalist will be admitted. Treatment Plan: [] Disposition: Admit Impression: Upper GI bleed Gastritis This note was generated with [employer] dictation software. It may contain incorrect words, spelling, and punctuation that were not noted in review of the chart prior to signing ED Disposition - Plan for ED Patient: Chief Complaint: GI Bleed Referrals: Care Physician,No Primary [Primary Care Provider] -
--- NOTE | 2017-08-22 01:34 | PCM.HP.STD ---
History of Present Illness Date of Admission: 08/22/17 Chief Complaint: Hematemesis. The patient is a 26 year old M with no significant past medical history presented to the emergency room because of hematemesis and abdominal pain. He started throwing up blood since yesterday evening, around 12 episodes of hematemesis with small to moderate amount of bright red blood, associated with vague abdominal pain and without aggravating or relieving factors. He described this abdominal pain as vague, generalized abdominal pain, has been going on for some time, more on the epigastric region, not radiating and without aggravating or relieving factors. He denied chest pain or shortness of breath. He reports that he is dizzy and lightheaded upon arrival to ER. He denied syncope or presyncope. He denied chest pain or shortness of breath. He underwent upper EGD on August 15, 2017 for epigastric pain and he was found to have small hiatal hernia, gastritis with punctate bleeding. His antral biopsy was positive for Helicobacter pylori. In the emergency department, he was slightly tachycardic, blood pressure stable, afebrile, pulse ox is maintained on room air. His routine blood work was remarkable for potassium of 3.3, otherwise normal. Pro time and INR were normal. LFT and lipase were normal. EKG revealed normal sinus rhythm without evidence of acute ischemic changes or cardiac arrhythmias. He is being admitted for upper GI bleed due to gastritis and positive Helicobacter pylori on antral biopsy. 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 Psychiatric History: No pertinent psych hx Lives: With Family Smoking Status: Current every day smoker Alcohol: None Drugs: None - *Family History Maternal Family History: Family History (Last Reviewed 08/07/17 @ 09:35 by Toshia Barbour) Father Asthma Hypertension CAD (coronary artery disease) Cancer Seizures CVA (cerebral vascular accident) History Items: No pertinent history Paternal Family History: Family History (Last Reviewed 08/07/17 @ 09:35 by Toshia Barbour) Father Asthma Hypertension CAD (coronary artery disease) Cancer Seizures CVA (cerebral vascular accident) History Items: No pertinent history Review of Systems Constitutional: Denies: Anorexia, Chills, Fever, Weakness Eyes: Denies: Blurred vision, Double vision, Drainage, Redness HEENT: Denies: Difficulty Hearing, Ear Pain, Eye Pain, Nasal Congestion, Sore Throat Cardiovascular: Reports: Light Headedness. Denies: Chest Pain, Chest Pressure, Chest Tightness, Heaviness, Palpitations, Syncope Respiratory: Denies: Cough, Pleuritic Pain, Shortness of Breath, Sputum production, Wheezing Gastrointestinal: Reports: Abdominal Pain, Hematemesis. Denies: Constipation, Diarrhea Genitourinary: Denies: Dysuria, Frequency, Hematuria Musculoskeletal: Denies: Arm Pain, Back Pain, Foot Pain Skin: Denies: Dryness, Rash Neurological: Denies: Balance problems, Double vision, Change in Speech, Slurred speech, Confusion, Headaches, Incoordination, Numbness Psychiatric: Denies: Anxiety, Depression Endocrine: Denies: Change in Body Habitus, Polydipsia VTE Information - Inpt Only VTE Present on Admission: No VTE Mechan Device Prophylaxis: None VTE Pharm Prophylaxis ordered?: No - Physical Exam General: Alert, Oriented x3, Cooperative, No apparent distress HEENT: Atraumatic, PERRLA, EOMI, Normocephalic Oral: Moist Mucosa, No Gingival or Mucosal Lesions/ Ulcerations Neck: Supple, No JVD, Negative Carotid Bruits, Trachea Midline, Thyroid Normal Size and Texture Lungs: Clear to auscultation, No rhonchi, No wheeze, No rales, Diminished Cardiovascular: Regular rate, Regular Rhythm, Normal S1, Normal S2, PMI Normal Abdomen: Bowel Sounds Present, Soft, Non Tender, Non-Distended, No Hepato-splenomegaly Extremities: No clubbing, No cyanosis, No edema Skin: No rashes, No breakdown Lymphatic: No Cervical, Supraclavicular, or Inguinal Adenopathy Neurological: Cranial nerves II-XII grossly intact, Motor Exam 5/5 strength throughout Psych/Mental Status: Normal Affect, Appropriate, Alert and oriented to time, place, person, mood and affect Vital Signs Temp Pulse Resp BP Pulse Ox 98.0 F 81 18 129/90 H 99 08/21/17 23:27 08/22/17 00:10 08/21/17 23:27 08/22/17 00:10 08/21/17 23:27 Oxygen Delivery Method Room Air Weight: 156 lb 4.924 oz Body Mass Index (BMI) 21.8 Laboratory Tests Past 24 Hrs 08/21/17 08/21/17 08/21/17 23:45 23:45 23:45 WBC 8.0 RBC 4.98 Hgb 15.2 Hct 43.9 MCV 88.2 MCH 30.5 MCHC 34.6 RDW 13.1 RDW Differential 42.4 Plt Count 223 MPV 11.3 Immature Gran % (Auto) 0.100 Neut % (Auto) 64.6 Lymph % (Auto) 25.4 Garvin % (Auto) 8.7 Eos % (Auto) 1.1 Baso % (Auto) 0.1 Absolute Neuts (auto) 5.2 Absolute Lymphs (auto) 2.04 Total Counted Not Reportable PT 13.2 INR 1.0 Sodium 140 Potassium 3.3 L Chloride 102 Carbon Dioxide 31.0 Anion Gap 7 BUN 6 L Creatinine 1.02 Estim Creat Clear Calc 109.09 Est GFR (MDRD) Af Amer 112 Est GFR (MDRD) Non-Af 93 BUN/Creatinine Ratio 5.9 L Glucose 90 Calcium 8.7 Total Bilirubin 0.70 AST 21 ALT 23 Alkaline Phosphatase 57 Total Protein 7.4 Albumin 3.9 Globulin 3.5 Albumin/Globulin Ratio 1.1 Lipase 66 L Blood Type Antibody Screen 08/21/17 23:50 WBC RBC Hgb Hct MCV MCH MCHC RDW RDW Differential Plt Count MPV Immature Gran % (Auto) Neut % (Auto) Lymph % (Auto) Garvin % (Auto) Eos % (Auto) Baso % (Auto) Absolute Neuts (auto) Absolute Lymphs (auto) Total Counted PT INR Sodium Potassium Chloride Carbon Dioxide Anion Gap BUN Creatinine Estim Creat Clear Calc Est GFR (MDRD) Af Amer Est GFR (MDRD) Non-Af BUN/Creatinine Ratio Glucose Calcium Total Bilirubin AST ALT Alkaline Phosphatase Total Protein Albumin Globulin Albumin/Globulin Ratio Lipase Blood Type A POSITIVE Antibody Screen NEGATIVE Assessment/Plan All Active Problems (Last Reviewed 08/07/17 @ 09:35 by Toshia S Barbour) Epigastric abdominal pain (Acute) This is a 26 years old male patient presented to the emergency room because of hematemesis, found to have small hiatal hernia, gastritis with punctate bleeding on upper EGD that was done on August 15, 2017 and he is being admitted for observation. #1 upper GI bleed/hematemesis: Secondary to gastritis with punctate bleeding. Upper EGD performed on August 15, 2017, report reviewed. His antral biopsy was positive for Helicobacter pylori. His vital signs are stable. His hemoglobin and hematocrit are stable. Pro time and INR are normal. Plan: Admit to [facility] for observation, cardiac monitoring, IV fluids with potassium replacement, IV antiemetics, repeat CBC and BMP tomorrow morning, general surgery consult. #2 gastritis with punctate bleeding/Helicobacter pylori infection: Upper EGD operative report and antral biopsy report reviewed. He tested positive for Helicobacter pylori. No evidence of peptic ulcers. Plan to start him on radiation therapy, start IV Protonix drip, clarithromycin 500 mg p.o. twice daily, Flagyl 500 mg p.o. 3 times daily. Patient is allergic to penicillin. #3 hypokalemia: Likely because of nausea and vomiting. Potassium was 2.3. Plan to replace potassium with IV fluids, repeat BMP tomorrow morning. #4 DVT prophylaxis: Low risk patient, no prophylaxis indicated. This note was generated with [employer] dictation software. It may contain incorrect words, spelling, and punctuation that were not noted in checking the note before signing. Code Visit OBSV E&M: 60149 Initial observation care L3
[2017-08-22 01:57] VITALS: BMI 21.4; BMI 21.5
[2017-08-22 02:06] VITALS: BP 130/82; PULSE 80; RESP 16; TEMP 37; O2SAT 96
[2017-08-22 02:41] VITALS: PULSE 74
[2017-08-22] MEDS: metroNIDAZOLE 500 MG Tablet PO (03:28)
[2017-08-22] MEDS: 0.9% NaCl Peripheral Flush Adult/Peds IV (03:29)
[2017-08-22 06:27] LABS: Absolute Lymphocyte Count 2.48 X10^3/ul (0.83-4.51); Absolute Neutrophil Count 4.3 X10^3/uL (2.0-7.7); Basophil# 0.01 X10^3/uL; Basophil% 0.1 % (0-1); Eosinophil# 0.13 X10^3/uL; Eosinophils% 1.7 % (0-5); Hematocrit 43.1 % (40-54); Hemoglobin 14.8 g/dl (13.0-16.5); Lymphocyte # 2.48 X10^3/ul (4.0); Lymphocyte % 32.6 % (19-41); Mean Corp Hgb Conc 34.3 g/gl (32-36); Mean Corpuscular Hgb 30.9 pg (27.0-32.0); Mean Platelet Vol. 11.7 fl (6.2-12.0); Monocyte# 0.67 X10^3/uL; Monocyte% 8.8 % (0-10); Neutrophil % 56.5 % (47-70); Platelet Count 216 K/mm3 (150-450); RBC Distribution Width CV 13.3 % (11.6-14.6); RBC Distribution Width SD 43.7 fl (35.1-43.9); Red Blood Count 4.79 M/mm3 (4.6-6.2); White Blood Count 7.6 K/mm3 (4.4-11.0)
[2017-08-22 06:29] LABS: POSITIVE COUNT NO; POSITIVE DIFFERENTIAL NO; POSITIVE MORPHOLOGY NO
[2017-08-22 06:46] LABS: Anion Gap 5 (5-15); BUN 7 mg/dL (7-18); BUN/Creat Ratio 7.8 RATIO (10-20); Calcium,Total 8.1 mg/dL (8.5-10.1); Chloride 109 mmol/L (98-107); EST Glomerular Filtration Rate 107 mL/min (>60); Est Glom Filt Rate - Afr Amer 130 mL/min (>60); Estimated Creatinine Clearance 121.96 ml/min; Glucose 86 mg/dL (74-106); Potassium 3.3 mmol/L (3.5-5.1); Sodium Level 145 mmol/L (136-145)
[2017-08-22 07:33] VITALS: BP 118/76; PULSE 71; RESP 18; TEMP 36.6; O2SAT 99
[2017-08-22 07:49] VITALS: PULSE 71
--- NOTE | 2017-08-22 08:05 | PN.SURG_ITS ---
Subjective: Patient says he feels better today. He has had no vomiting overnight. - Physical Exam General: Alert, Oriented x3, Cooperative Lungs: Normal air movement Cardiovascular: Regular rate, Regular Rhythm Abdomen: Soft, Non Tender, Non-Distended Vital Signs Temp Pulse Resp BP Pulse Ox 97.9 F 71 18 118/76 99 08/22/17 07:33 08/22/17 07:49 08/22/17 07:33 08/22/17 07:33 08/22/17 07:33 Oxygen Delivery Method Room Air Weight: 154 lb 3 oz Body Mass Index (BMI) 21.4 Intake and Output for Last 24 Hours 08/20/17 08/21/17 08/22/17 23:59 23:59 23:59 Intake Total 484 / 484 Balance 484 / 484 Laboratory Tests Past 24 Hrs 08/22/17 08/22/17 05:35 05:35 WBC 7.6 RBC 4.79 Hgb 14.8 Hct 43.1 MCV 90.0 MCH 30.9 MCHC 34.3 RDW 13.3 RDW Differential 43.7 Plt Count 216 MPV 11.7 Immature Gran % (Auto) 0.300 Neut % (Auto) 56.5 Lymph % (Auto) 32.6 [place] % (Auto) 8.8 Eos % (Auto) 1.7 Baso % (Auto) 0.1 Absolute Neuts (auto) 4.3 Absolute Lymphs (auto) 2.48 Total Counted Not Reportable Sodium 145 Potassium 3.3 L Chloride 109 H Carbon Dioxide 31.0 Anion Gap 5 BUN 7 Creatinine 0.90 Estim Creat Clear Calc 121.96 Est GFR (MDRD) Af Amer 130 Est GFR (MDRD) Non-Af 107 BUN/Creatinine Ratio 7.8 L Glucose 86 Calcium 8.1 L Medical Necessity - Tobacco Use Smoking Status: Current every day smoker Assessment/Plan All Active Problems (Last Reviewed 08/07/17 @ 09:35 by Toshia Barbour) Epigastric abdominal pain (Acute) 26-year-old male with nausea and vomiting with blood 1. The patient reports that he was having vomiting but the amount of blood in the vomit was small. He has had no bloody vomit overnight. His hemoglobin is stable. 2. He had an EGD 1 week ago which showed gastritis with punctate bleeding. Yesterday afternoon his H. pylori came back positive. I will order outpatient 2 week therapy to his pharmacy and he will follow-up with me in 2 weeks. 3. He is okay for discharge from my standpoint no plans for scope at this time. Dmitri Vick MD Pager: [facility] [address] [place] [address], [address] [place] [address] Office:
[2017-08-22 08:57] LABS: Magnesium 2.1 mg/dL (1.6-2.6)
--- NOTE | 2017-08-22 09:53 | CASEMGMT ---
Social Work Note Pt is uninsured and referral for resources. Introduced self and role at [facility]. Pt reports to live with his grandmother and denies that either of them have access issues and claims both are completely independent. Pt does work and gets paid weekly, approximately $150 paycheck. Discussed Medicaid and pt is willing to complete application with SW. Application completed and faxed to [facility] this date. Original copy returned to pt and copy of application placed in pt's chart. Resources provided to pt including [facility] and area physician. Pt denies further needs at this time. Plan: Home with no anticipated needs. Rain Singh, [employer], [employer]
--- NOTE | 2017-08-22 10:33 | DS.PCM_ITS ---
Discharge Date and Diagnosis Date of Admission: 08/22/17 Date of Discharge: 08/22/17 - Primary Discharge Diagnosis hematemesis Hospital Course and Treatment Imaging Results: Laboratory Results - last 24 hr 08/21/17 08/21/17 08/21/17 23:45 23:45 23:45 WBC 8.0 RBC 4.98 Hgb 15.2 Hct 43.9 MCV 88.2 MCH 30.5 MCHC 34.6 RDW 13.1 RDW Differential 42.4 Plt Count 223 MPV 11.3 Immature Gran % (Auto) 0.100 Neut % (Auto) 64.6 Lymph % (Auto) 25.4 Beckham % (Auto) 8.7 Eos % (Auto) 1.1 Baso % (Auto) 0.1 Absolute Neuts (auto) 5.2 Absolute Lymphs (auto) 2.04 Total Counted Not Reportable PT 13.2 INR 1.0 Sodium 140 Potassium 3.3 L Chloride 102 Carbon Dioxide 31.0 Anion Gap 7 BUN 6 L Creatinine 1.02 Estim Creat Clear Calc 109.09 Est GFR (MDRD) Af Amer 112 Est GFR (MDRD) Non-Af 93 BUN/Creatinine Ratio 5.9 L Glucose 90 Calcium 8.7 Magnesium Total Bilirubin 0.70 AST 21 ALT 23 Alkaline Phosphatase 57 Total Protein 7.4 Albumin 3.9 Globulin 3.5 Albumin/Globulin Ratio 1.1 Lipase 66 L Blood Type Antibody Screen 08/21/17 08/22/17 08/22/17 23:50 05:35 05:35 WBC 7.6 RBC 4.79 Hgb 14.8 Hct 43.1 MCV 90.0 MCH 30.9 MCHC 34.3 RDW 13.3 RDW Differential 43.7 Plt Count 216 MPV 11.7 Immature Gran % (Auto) 0.300 Neut % (Auto) 56.5 Lymph % (Auto) 32.6 Beckham % (Auto) 8.8 Eos % (Auto) 1.7 Baso % (Auto) 0.1 Absolute Neuts (auto) 4.3 Absolute Lymphs (auto) 2.48 Total Counted Not Reportable PT INR Sodium 145 Potassium 3.3 L Chloride 109 H Carbon Dioxide 31.0 Anion Gap 5 BUN 7 Creatinine 0.90 Estim Creat Clear Calc 121.96 Est GFR (MDRD) Af Amer 130 Est GFR (MDRD) Non-Af 107 BUN/Creatinine Ratio 7.8 L Glucose 86 Calcium 8.1 L Magnesium Total Bilirubin AST ALT Alkaline Phosphatase Total Protein Albumin Globulin Albumin/Globulin Ratio Lipase Blood Type A POSITIVE Antibody Screen NEGATIVE 08/22/17 05:35 WBC RBC Hgb Hct MCV MCH MCHC RDW RDW Differential Plt Count MPV Immature Gran % (Auto) Neut % (Auto) Lymph % (Auto) Beckham % (Auto) Eos % (Auto) Baso % (Auto) Absolute Neuts (auto) Absolute Lymphs (auto) Total Counted PT INR Sodium Potassium Chloride Carbon Dioxide Anion Gap BUN Creatinine Estim Creat Clear Calc Est GFR (MDRD) Af Amer Est GFR (MDRD) Non-Af BUN/Creatinine Ratio Glucose Calcium Magnesium 2.1 Total Bilirubin AST ALT Alkaline Phosphatase Total Protein Albumin Globulin Albumin/Globulin Ratio Lipase Blood Type Antibody Screen general surgery Operations: None Procedures: None Summary of Care Provided: Patient is a 26-year-old male with a history of recent EGD and punctate gastritis findings. He was admitted with a complaint of hematemesis and abdominal pain which started the day prior to admission. At 12 months of hematemesis with scanty quantities of bright red blood associated with rate abdominal pain and no aggravating or relieving factors. He underwent EGD on August 16, 2017 for epigastric pain was found to have gastritis with punctate bleeding a small hiatal hernia. Antral biopsy for H. pylori came back yesterday positive for H. pylori he had not yet started commencement of treatment before he came in. Labs were significant for potassium of 3.3 which were replaced. EKG showed normal sinus rhythm with no acute ST changes and INR was within normal limits. He was admitted and managed for upper GI bleed due to gastritis and positive H. pylori and antral biopsy. Was started on IV Protonix drip, clarithromycin and Flagyl. Patient allergic to penicillin. Hematemesis resolved and he did not have any more overnight since admission. General surgery on board and saw patient and have no plans for EGD as hematemesis has resolved. Patient is to have therapy of H pylori treatment and is to follow-up with general surgery. Seen and examined. He has no complaints and felt very well. Denies any fever or chills, any abdominal pain, any cough or chest pain, any diarrhea vomiting. Review of systems otherwise negative. On examination Vitals were stable General: Alert, Oriented x3, Cooperative, No apparent distress HEENT: Atraumatic, PERRLA, EOMI, Normocephalic Oral: Moist Mucosa, No Gingival or Mucosal Lesions/ Ulcerations Neck: Supple, No JVD, Negative Carotid Bruits, Trachea Midline, Thyroid Normal Size and Texture Lungs: Clear to auscultation, No rhonchi, No wheeze, No rales, Diminished Cardiovascular: Regular rate, Regular Rhythm, Normal S1, Normal S2, PMI Normal Abdomen: Bowel Sounds Present, Soft, Non Tender, Non-Distended, No Hepato- splenomegaly Extremities: No clubbing, No cyanosis, No edema Skin: No rashes, No breakdown Lymphatic: No Cervical, Supraclavicular, or Inguinal Adenopathy Neurological: Cranial nerves II-XII grossly intact, Motor Exam 5/5 strength throughout Psych/Mental Status: Normal Affect, Appropriate, Alert and oriented to time, place, person, mood and affect Plan as stated above. Patient to be discharged home on triple therapy for H. pylori which is take for 2 weeks(pantoprazole, bismuth, tetracycline and metronidazole). He is to follow-up with his primary care doctor and general surgeon. Patient counseled to avoid NSAIDs and he confirmed understanding of this. [] Discharge Diet: No Restrictions Discharge Activity: Return to Normal Activity Weight Bearing Status: Weight bearing as tolerated Call your doctor if you observe: - - abdominal pain, vomiting of blood or dark coffee ground vomiting. Home Medications: Medications to take at Discharge Bismuth Subsalicylate 525 mg PO 4X/DAY 14 Days #30 gm 08/22/17 Metronidazole [Flagyl] 250 mg PO Q6H 14 Days #56 tab 08/22/17 Pantoprazole Sodium [Protonix] 40 mg PO BID #28 tab 08/22/17 Tetracycline HCl 500 mg PO 4X/DAY 14 Days #56 cap 08/22/17 Following Prescrptions Were Given to Patient: Pantoprazole Sodium [Protonix] 40 mg PO BID #28 tab Metronidazole [Flagyl] 250 mg PO Q6H 14 Days #56 tab Bismuth Subsalicylate 525 mg PO 4X/DAY 14 Days #30 gm Tetracycline HCl 500 mg PO 4X/DAY 14 Days #56 cap Primary Care Physician: Care Physician,No Primary [Primary Care Provider] - Please Follow Up With: Dmitri Vick MD When: two weeks Patient Instructions: Understanding H. pylori and Ulcers, Treating Gastritis Disposition: Home Minutes spent on discharge:: 35 Patient Condition:: Stable Medical Necessity - Tobacco Use Smoking Status: Current every day smoker Meaningful Use Info Meaningful Use Diagnoses (Choose all that apply): None applicable Code Visit Inpatient E&M: 67362 Disch Hosp
--- NOTE | 2017-08-22 10:36 | DCINST_ITS ---
- Discharge Diagnoses Current Active Problems: gastritis You will use the following diet at home:: No restrictions Your food should be the consistency of: Regular Your liquids should be the consistency of: Regular/Thin Discharge Activity: Return to Normal Activity Weight Bearing Status: Weight bearing as tolerated Call your doctor if you observe: - - abdominal pain, vomiting of blood or dark coffee ground vomiting. Instructions: Understanding H. pylori and Ulcers, Treating Gastritis Allergies/Adverse Reactions: Allergies famotidine [From Pepcid] Allergy (Verified 08/21/17 23:24) Angioedema Penicillins Adverse Reaction (Verified 08/21/17 23:24) Swelling Medications to take at Discharge Bismuth Subsalicylate 525 mg PO 4X/DAY 14 Days #30 gm 08/22/17 Metronidazole [Flagyl] 250 mg PO Q6H 14 Days #56 tab 08/22/17 Pantoprazole Sodium [Protonix] 40 mg PO BID #28 tab 08/22/17 Tetracycline HCl 500 mg PO 4X/DAY 14 Days #56 cap 08/22/17 The following prescriptions were given: Pantoprazole Sodium [Protonix] 40 mg PO BID #28 tab Metronidazole [Flagyl] 250 mg PO Q6H 14 Days #56 tab Bismuth Subsalicylate 525 mg PO 4X/DAY 14 Days #30 gm Tetracycline HCl 500 mg PO 4X/DAY 14 Days #56 cap Primary Care Physician: Care Physician,No Primary [Primary Care Provider] - Test Results: Test results from this visit will be discussed in further detail at your follow- up appointment, if applicable. Please Follow Up With: Dmitri Vick MD When: two weeks Proposed Discharge Date: 08/22/17
--- NOTE | 2017-08-22 11:24 | NURSING ---
pt given number for [facility] is aware to f/u with dr ascencio also given list of pcp
== END 2017-08-22 11:16 | disposition home or self-care (01) ==
LOC: ED 08-22 01:15 → MS3 08-22 01:40
PROVIDERS: Admitting Provider Hospitalist; Emergency Provider Emergency Medicine; Visit Provider Student in an Organized Health Care Education/Training Program
DX: K29.71 Gastritis, unspecified, with bleeding (principal); K44.9 Diaphragmatic hernia without obstruction or gangrene; F17.200 Nicotine dependence, unspecified, uncomplicated; E87.6 Hypokalemia; J45.909 Unspecified asthma, uncomplicated
CPT/HCPCS: 36415; 80048; 80053; 83690; 83735; 85025; 85610; 86850; 86900; 93005; 96361; 96365; 96366; 96375; 99218; 99285; J7030; A4216; G0378; J2405; J3490

== ENCOUNTER 2017-08-23 19:03 | Emergency (ER) | payer SELFPAY ==
[2017-08-23 19:05] VITALS: BP 141/98; PULSE 93; RESP 18; TEMP 36.8; O2SAT 98; BMI 21.6
--- NOTE | 2017-08-23 19:30 | ED.VISSUMM ---
- ER Visit Summary Date of Service: 08/23/17 Chief Complaint: Nausea and vomiting History of Present Illness: The patient is a 26 M for history of peptic ulcer disease. States that he had a recent hospitalization upper endoscopy done by Dr. Maza to her general surgery. Was told that he had Helicobacter pylori and was placed on antibiotics for his ulcer. He states he cannot afford his antibiotics filled. And has not taken them. He is also supposed to be on a stomach protectant medication which he is not taking either. Patient also smokes and drinks occasionally. He states that since his been discharged she has had intermittent nausea and vomiting daily. And today he threw up a small amount of blood. He denies any melena. He denies any fever. He has not epigastric abdominal pain. He has never had abdominal surgery. Physical Examination: Well-appearing young male. Vital signs stable afebrile. Initial blood pressure 141/98. He does not look septic or toxic. He does not look significantly dehydrated. H EENT exam unremarkable. Neck nontender. Lungs clear to auscultation bilaterally. Heart regular rhythm no murmur. Abdomen soft nondistended normal bowel sounds no peritoneal signs. Minimal epigastric tenderness. He is moving all 4 extremities. They are neurovascularly intact. Neurologically is awake alert with no focal deficits. Test Results: CBC shows normal white count and a hemoglobin hematocrit of 15.2 and 44 which are actually better than when he was previously. There is no signs of any significant active bleeding. Emergency Department Course and Treatment: Patient treated with IV fluids, IV Zofran and Protonix. Treatment Plan: Repeat exam he is doing well at 2020. Instruct to be discharged home. Follow-up with either his recent general surgeon that did his upper endoscopy and/or [facility] to see if they can get him his medications. Disposition: Discharge Impression: Acute nausea and vomiting Acute upper GI bleed from reported recently diagnosed ulcer This note was generated with [employer] dictation software. It may contain incorrect words, spelling, and punctuation that were not noted in review of the chart prior to signing ED Disposition - Plan for ED Patient: Chief Complaint: Nausea/Vomiting Referrals: Care Physician,No Primary [Primary Care Provider] -
[2017-08-23] MEDS: 0.9% Normal Saline 1,000 ML 1000 ML IV (19:44)
[2017-08-23] MEDS: Ondansetron 4 MG/2 ML Vial IV (19:45)
[2017-08-23 19:49] LABS: Hematocrit 44.5 % (40-54); Hemoglobin 15.2 g/dl (13.0-16.5); Mean Corp Hgb Conc 34.2 g/gl (32-36); Mean Corpuscular Hgb 30.7 pg (27.0-32.0); Mean Corpuscular Volume 89.9 fL (80-94); Platelet Count 218 K/mm3 (150-450); RBC Distribution Width CV 13.2 % (11.6-14.6); RBC Distribution Width SD 43.2 fl (35.1-43.9); Red Blood Count 4.95 M/mm3 (4.6-6.2); White Blood Count 7.5 K/mm3 (4.4-11.0)
[2017-08-23 19:50] LABS: Scan Indicated on CBC? Y/N NO
--- NOTE | 2017-08-23 20:22 | ED.DEP ---
ED Disposition - Plan for ED Patient: Disposition: Home or Assisted Living Chief Complaint: Nausea/Vomiting Instructions: ED Nausea Vomiting Prescriptions: Ondansetron [Zofran Odt] 8 mg PO Q8H PRN PRN #10 PRN Reason: Nausea Referrals: Macy De Jesus [NON-STAFF] - As soon as possible Additional Instructions: Return if feeling worse. Call follow-up with start since clinic as soon as possible C think it to your medications. Zofran as needed for nausea.
[2017-08-23 20:41] VITALS: PULSE 80; RESP 16; O2SAT 100
--- NOTE | 2017-08-23 20:41 | ED.RN ---
This RN requested paper rx for Zofran instead of home pack as [facility] is still open now. Paper rx given to patient. I asked PT if he has gotten an appointment with Macy Abbasi for Pcp care and he said he had not. I asked why and he said because he was too busy being seen here. I then asked him how many times he's been here recently and he said it was at least 5 or 6 times. Encouraged patient to f/u with Macy and not abuse the emergency room. PT also could not turn his loud music off of his phone during discharge. He did not appear to be in any pain as he was dancing along to the music while in bed.
== END 2017-08-23 20:44 | disposition home or self-care (01) ==
PROVIDERS: Emergency Provider Emergency Medicine
DX: R11.2 Nausea with vomiting, unspecified (principal); K27.4 Chronic or unspecified peptic ulcer, site unspecified, with hemorrhage; B96.81 Helicobacter pylori [H. pylori] as the cause of diseases classified elsewhere; F17.200 Nicotine dependence, unspecified, uncomplicated
CPT/HCPCS: 85027; 96365; 96375; 99285; J7030

== ENCOUNTER 2017-09-03 14:46 | Emergency (ER) | payer SELFPAY ==
[2017-09-03 14:47] VITALS: BP 137/87; PULSE 97; RESP 18; TEMP 36.7; O2SAT 97; BMI 21.6
--- NOTE | 2017-09-03 15:00 | RAD_ITS ---
STUDY: X-RAY - LEFT KNEE REASON FOR EXAM: Male, 26 years old. Pain after trauma TECHNIQUE: 4 view(s) of the knee. COMPARISON: None. FINDINGS: Normal visualized distal femur. Normal visualized proximal tibia and fibula. Normal proximal tibiofibular articulation. Normal medial femorotibial compartment. Normal lateral femorotibial compartment. Normal patellofemoral articulation. The soft tissue structures are unremarkable. RAD/Knee 4 or More Views IMPRESSION: Normal x-ray examination of the knee. Electronically Signed: Irving Florentino MD at 15:11 EDT , Service support ,
--- NOTE | 2017-09-03 15:43 | ED.DCSUM_ITS ---
- ER Visit Summary Date of Service: 09/03/17 Chief Complaint: Left knee pain History of Present Illness: The patient is a 26 M who states he twisted his left knee 1 week ago. He fell on it today. It hurts when he moves it. He does have a history of bursitis in the knee. He did not take anything for it at home. Physical Examination: Vitals are reviewed. Left knee exam reveals diffuse tender to palpation. He has painful range of motion. No swelling. Test Results: X-rays of the left knee are negative Emergency Department Course and Treatment: Patient will be treated with Tylenol as he has a history of ulcers. He will follow-up with his PCP. Treatment Plan: [] Disposition: Discharge Impression: Left Knee Pain This note was generated with [employer] dictation software. It may contain incorrect words, spelling, and punctuation that were not noted in review of the chart prior to signing ED Disposition - Plan for ED Patient: Chief Complaint: Lower Extremity Injury Referrals: Care Physician,No Primary [Primary Care Provider] -
--- NOTE | 2017-09-03 15:43 | ED.DEP ---
ED Disposition - Plan for ED Patient: Disposition: Home or Assisted Living Chief Complaint: Lower Extremity Injury Instructions: ED Knee Pain UKO Prescriptions: Acetaminophen [Tylenol Extra Strength] 500 mg PO Q6H PRN PRN #60 tab PRN Reason: Pain Referrals: Care Physician,No Primary [Primary Care Provider] -
[2017-09-03 15:56] VITALS: RESP 16
--- NOTE | 2017-09-03 15:59 | ED.RN ---
REVIEWED D/C INSTRUCTIONS, FOLLOW UP CARE, PRESCRIPTIONS, AND S/S THAT WOULD WARRANT A RETURN TO THE ED WITH PT. PT VERBALIZED AN UNDERSTANDING. PT AMBULATED OUT OF ED, GAIT STEADY.
== END 2017-09-03 16:00 | disposition home or self-care (01) ==
PROVIDERS: Emergency Provider Emergency Medicine
DX: M25.562 Pain in left knee (principal); X50.1XXA Overexertion from prolonged static or awkward postures, initial encounter; Y93.9 Activity, unspecified; Y92.9 Unspecified place or not applicable; Z72.0 Tobacco use
CPT/HCPCS: 73564; 99282

== ENCOUNTER 2017-09-08 21:11 | Emergency (ER) | payer SELFPAY ==
[2017-09-08 21:12] VITALS: BP 126/84; PULSE 103; RESP 16; TEMP 528.3; TEMP 983; O2SAT 99; BMI 21.6
--- NOTE | 2017-09-08 22:31 | ED.DCSUM_ITS ---
- ER Visit Summary Date of Service: 09/08/17 Chief Complaint: Epigastric pain, vomiting History of Present Illness: The patient is a 26 M increasing epigastric pain vomiting 2 hours prior to arrival. States notes blood in the emesis. Feels a shot glass. No clots. No melena. Diagnosed with H. pylori from endoscopy on the sixth of this month followed by Dr. Vick. Patient had a follow-up 3 days in the office. Noted cannot afford the quadruple antibiotics. He is out of his his omeprazole 40 mg daily. Pain to the back. No urinary symptoms. No fever or lightheaded symptoms. Similar symptoms prior to being diagnosed with his H pylori. States with endoscopy note amount of bleeding and found to have the bacteria. Physical Examination: General: Alert and oriented ?3, no acute distress HEENT: Normocephalic, atraumatic. Moist mucosa membranes. Normal conjunctiva Neck: supple, nontender. Cardiovascular: Regular rate 96 and rhythm, no murmurs Respiratory: Normal breath sounds, symmetric, no distress Abdomen: Soft, mild epigastric tenderness without guarding or rebound. Nondistended. No Shea's or McBurney's tenderness. Extremities: Nontender, no edema, pulses intact ?4 Neuro: no focal neurological deficits. Skin: No pallor Test Results: WBC 8.9, hemoglobin 15.8. Lipase normal. Liver enzymes normal. Chemistries normal. Emergency Department Course and Treatment: Patient confirmed history of H pylori with EGD. He is unable take his antibiotics due to cost. This was explained by his surgeon and a note 3 days ago. He understands this. Complains of emesis with blood, states streaks not more than 1 ounce. Epigastric discomfort. He is given IV fluid Zofran and Protonix. Abdominal labs normal hemoglobin stable. Denies lightheaded symptoms. He denies melena symptoms. His p.o. challenge, no emesis. Patient will be written prescription for symptom control with Zofran along with omeprazole. Discuss he needs to take his antibiotics to help with symptoms. This is at the pharmacy per patient. Treatment Plan: [] Disposition: Discharge Impression: 1. Gastritis with a history of H. pylori This note was generated with [employer] dictation software. It may contain incorrect words, spelling, and punctuation that were not noted in review of the chart prior to signing ED Disposition - Plan for ED Patient: Disposition: Home or Assisted Living Chief Complaint: GI Bleed Diagnosis: Gastritis, History of Helicobacter pylori infection Instructions: Understanding H. pylori and Ulcers Prescriptions: Ondansetron [Zofran Odt] 4 mg PO Q8H PRN PRN #10 tablet PRN Reason: Nausea Omeprazole 40 mg PO DAILY #30 capsule.dr Referrals: Care Physician,No Primary [Primary Care Provider] - Dmitri Vick MD [STAFF PHYSICIAN] - 3-5 Days Additional Instructions: Need to take your antibiotics as discussed with your surgeon.
[2017-09-08] MEDS: 0.9% Normal Saline 1,000 ML 1000 ML IV (22:36)
[2017-09-08] MEDS: Ondansetron 4 MG/2 ML Vial IV (22:36)
[2017-09-08 22:41] LABS: Absolute Lymphocyte Count 1.99 X10^3/ul (0.83-4.51); Absolute Neutrophil Count 6.1 X10^3/uL (2.0-7.7); Basophil# 0.02 X10^3/uL; Basophil% 0.2 % (0-1); Eosinophil# 0.13 X10^3/uL; Eosinophils% 1.5 % (0-5); Hematocrit 45.4 % (40-54); Hemoglobin 15.8 g/dl (13.0-16.5); Lymphocyte # 1.99 X10^3/ul (4.0); Lymphocyte % 22.3 % (19-41); Mean Corp Hgb Conc 34.8 g/gl (32-36); Mean Corpuscular Hgb 31.5 pg (27.0-32.0); Mean Corpuscular Volume 90.4 fL (80-94); Mean Platelet Vol. 11.8 fl (6.2-12.0); Monocyte# 0.68 X10^3/uL; Monocyte% 7.6 % (0-10); Neutrophil % 68.2 % (47-70); Platelet Count 244 K/mm3 (150-450); RBC Distribution Width CV 13.4 % (11.6-14.6); RBC Distribution Width SD 44.5 fl (35.1-43.9); Red Blood Count 5.02 M/mm3 (4.6-6.2); White Blood Count 8.9 K/mm3 (4.4-11.0)
[2017-09-08 22:42] LABS: POSITIVE COUNT NO; POSITIVE DIFFERENTIAL NO; POSITIVE MORPHOLOGY NO
[2017-09-08 23:10] LABS: ALB/GLOB Ratio 1.1 RATIO (0.9-2.4); AST(SGOT) 27 U/L (15-37); Alanine Aminotransfer ALT/SGPT 28 U/L (16-61); Alkaline Phosphatase 66 U/L (45-117); Anion Gap 4 (5-15); BUN 13 mg/dL (7-18); BUN/Creat Ratio 14.7 RATIO (10-20); Calcium,Total 9.1 mg/dL (8.5-10.1); Chloride 107 mmol/L (98-107); Creatinine, Serum 0.88 mg/dL (0.70-1.30); EST Glomerular Filtration Rate 109 mL/min (>60); Est Glom Filt Rate - Afr Amer 132 mL/min (>60); Estimated Creatinine Clearance 125.39 ml/min; Globulin 3.6 g/dL (2.2-4.2); Glucose 101 mg/dL (74-106); Lipase 98 U/L (73-393); Potassium 4.1 mmol/L (3.5-5.1); Protein, Total 7.6 g/dL (6.4-8.2); Sodium Level 141 mmol/L (136-145)
--- NOTE | 2017-09-08 23:51 | NURSING ---
PT DID NOT VOMIT AFTER DRINKING COKE.
[2017-09-09 00:01] VITALS: BP 119/88; PULSE 72; RESP 18; O2SAT 98
== END 2017-09-09 00:01 | disposition home or self-care (01) ==
PROVIDERS: Emergency Provider Emergency Medicine
DX: K29.70 Gastritis, unspecified, without bleeding (principal); Z87.19 Personal history of other diseases of the digestive system
CPT/HCPCS: 80053; 83690; 85025; 96361; 96365; 96375; 99283; J7030; A4216; J2405; J3490

== ENCOUNTER 2017-09-17 22:02 | Emergency (ER) | payer MEDICAID, SELFPAY ==
[2017-09-17 22:05] VITALS: BP 124/87; PULSE 95; RESP 18; TEMP 35.8; O2SAT 95; BMI 22.0
--- NOTE | 2017-09-17 22:40 | ED.VISSUMM ---
- ER Visit Summary Date of Service: 09/17/17 Chief Complaint: [Bump on head loss of appetite] History of Present Illness: The patient is a 26 M [who presents the emergency department with loss of appetite. That started yesterday about 4 PM. He is drinking fluids normally but just does not want to eat anything and is slightly nauseated. He also has noted for the past 2 days he had a scab lesion on his head that is more swollen red and painful. No fevers or chills bowel movements have been normal. He has a history of H pylori and has been taking his medications. He has not had any melena or hematemesis since his last visit to the emergency department on the ] Physical Examination: [] WN WD NAD Small raised erythematous tender scabbed nodule on the left forehead that expresses pus PERRL EOMI MMM NECK supple and nontender, no masses RRR no murmur rub or gallop, no peripheral edema, symmetric radial pulses CTAB no respiratory distress ABDOMEN is soft and nontender, normal bowel sounds, no distension, no rebound or guarding SKIN is warm and dry no rashes Alert and Oriented x3, CN II-XII in tact, no motor or sensory deficits, gait normal No lymphadenopathy Test Results: [] Emergency Department Course and Treatment: [Patient was given Bactrim and will do warm compresses for the boil on his forehead. He was given a GI cocktail in the emergency department will be given Zofran and sucralfate for home. He was given precautions for which to return and will follow up with Dr. Maza] Treatment Plan: [] Disposition: [Discharge] Impression: [1. Boil left forehead 2. Gastritis] This note was generated with [employer] dictation software. It may contain incorrect words, spelling, and punctuation that were not noted in review of the chart prior to signing ED Disposition - Plan for ED Patient: Chief Complaint: General Illness Referrals: Care Physician,No Primary [Primary Care Provider] -
--- NOTE | 2017-09-17 22:42 | ED.DEP ---
ED Disposition - Plan for ED Patient: Chief Complaint: General Illness Instructions: ED Staph Infec Abx Tx Only, ED Gastritis Prescriptions: Ondansetron [Zofran Odt] 4 mg PO Q8H PRN PRN #10 tablet PRN Reason: Nausea Sucralfate 1 gm PO 4X/DAY PRN PRN #20 tablet PRN Reason: Pain Smz/Tmp Ds [Bactrim Ds] 1 tablet PO BID #14 tablet Referrals: Dmitri Vick MD [STAFF PHYSICIAN] - 1 Week
[2017-09-17] MEDS: Smz/Tmp Ds Tablet 1 TABLET PO (23:02)
[2017-09-17] MEDS: Mag Hydrox/Al Hydrox/Simeth 30 ML UDC PO (23:02)
== END 2017-09-18 00:32 | disposition home or self-care (01) ==
PROVIDERS: Emergency Provider Emergency Medicine
DX: L02.02 Furuncle of face (principal); B96.81 Helicobacter pylori [H. pylori] as the cause of diseases classified elsewhere; K29.70 Gastritis, unspecified, without bleeding; Z72.0 Tobacco use
CPT/HCPCS: 99281

== ENCOUNTER 2017-09-20 18:17 | Emergency (ER) | payer MEDICAID, SELFPAY ==
[2017-09-20 18:19] VITALS: BP 141/92; PULSE 84; RESP 16; TEMP 36.8; O2SAT 98; BMI 21.6
[2017-09-20] MEDS: Ondansetron 4 MG/2 ML Vial IV (18:47)
[2017-09-20 19:14] LABS: Absolute Lymphocyte Count 1.06 X10^3/ul (0.83-4.51); Absolute Neutrophil Count 5.6 X10^3/uL (2.0-7.7); Basophil# 0.01 X10^3/uL; Basophil% 0.1 % (0-1); Eosinophil# 0.02 X10^3/uL; Eosinophils% 0.3 % (0-5); Hematocrit 44.1 % (40-54); Hemoglobin 15.2 g/dl (13.0-16.5); Lymphocyte # 1.06 X10^3/ul (4.0); Mean Corp Hgb Conc 34.5 g/gl (32-36); Mean Corpuscular Hgb 30.9 pg (27.0-32.0); Mean Corpuscular Volume 89.6 fL (80-94); Mean Platelet Vol. 11.2 fl (6.2-12.0); Monocyte# 0.33 X10^3/uL; Monocyte% 4.7 % (0-10); Neutrophil # 5.64 X10^3/uL (2.7-7.7); Neutrophil % 79.9 % (47-70); POSITIVE COUNT NO; POSITIVE DIFFERENTIAL NO; POSITIVE MORPHOLOGY NO; Platelet Count 216 K/mm3 (150-450); RBC Distribution Width SD 42.4 fl (35.1-43.9); Red Blood Count 4.92 M/mm3 (4.6-6.2); White Blood Count 7.1 K/mm3 (4.4-11.0)
[2017-09-20 19:17] LABS: Prothrombin Time (Protime)PT. 13.1 SECONDS (11.7-14.9)
[2017-09-20 19:18] LABS: Partial Thromboplast Time 28.1 Seconds (24.1-36.2)
[2017-09-20 19:27] LABS: AST(SGOT) 18 U/L (15-37); Alanine Aminotransfer ALT/SGPT 18 U/L (16-61); Alkaline Phosphatase 69 U/L (45-117); Anion Gap 6 (5-15); BUN 9 mg/dL (7-18); BUN/Creat Ratio 9.2 RATIO (10-20); Bilirubin, Direct 0.15 mg/dL (0.00-0.30); Calcium,Total 8.9 mg/dL (8.5-10.1); Chloride 103 mmol/L (98-107); Creatinine, Serum 0.98 mg/dL (0.70-1.30); EST Glomerular Filtration Rate 97 mL/min (>60); Est Glom Filt Rate - Afr Amer 117 mL/min (>60); Estimated Creatinine Clearance 112.42 ml/min; Globulin 3.7 g/dL (2.2-4.2); Glucose 95 mg/dL (74-106); Lipase 72 U/L (73-393); Potassium 3.4 mmol/L (3.5-5.1); Protein, Total 7.7 g/dL (6.4-8.2); Sodium Level 139 mmol/L (136-145)
[2017-09-20] MEDS: Dicyclomine 10 MG Capsule 20 MG PO (19:52)
[2017-09-20 19:53] VITALS: BP 126/84; PULSE 80; RESP 14
--- NOTE | 2017-09-20 20:37 | ED.VISSUMM ---
- ER Visit Summary Date of Service: 09/20/17 Chief Complaint: Bloody emesis History of Present Illness: The patient is a 26 M who states he was recently scoped Dr. Benitez and found to have H pylori. Patient just filled his prescription for antibiotics 3 days ago. Tonight at work he states he started vomiting and had 3 episodes of bright red blood. No clots were noted. He has not had dark stools. Physical Examination: Vital signs unremarkable. Head neck examination is normal. Heart is regular rate and rhythm. Lung sounds are clear. Abdomen is soft epigastric tenderness. No guarding or rebound. Hypoactive bowel sounds are noted throughout. Test Results: CBC and chemistry studies unremarkable other than potassium 3.4. LFTs and lipase are normal. Coags normal. Emergency Department Course and Treatment: Patient was given Zofran, Protonix, and IV fluids. Due to continued pain he was given a dose of Bentyl. On repeat evaluation patient still complaining of pain. Abdomen is soft with very minimal tenderness. No guarding or rebound. He has had no further vomiting here in the emergency room. Patient was seen here in the emergency room approximately 2 weeks ago for similar symptoms. He is advised to continue his Protonix at home. He will be given some Bentyl and Zofran. He is to follow with Dr. Benitez. Treatment Plan: [] Disposition: Discharge Impression: Reported hematemesis This note was generated with [employer] dictation software. It may contain incorrect words, spelling, and punctuation that were not noted in review of the chart prior to signing ED Disposition - Plan for ED Patient: Chief Complaint: Abd Pain Referrals: Care Physician,No Primary [Primary Care Provider] -
--- NOTE | 2017-09-20 20:39 | ED.DEP ---
ED Disposition - Plan for ED Patient: Disposition: Home or Assisted Living Chief Complaint: Abd Pain Instructions: ED Bleed UGI Stable Prescriptions: Ondansetron [Zofran Odt] 4 mg PO Q8H PRN PRN #10 tablet PRN Reason: Nausea Dicyclomine HCl [Bentyl] 20 mg PO TIDAC #20 capsule Referrals: Dmitri Vick MD [STAFF PHYSICIAN] - 1-2 Weeks
[2017-09-20 20:45] VITALS: BP 130/84; PULSE 82; RESP 15
== END 2017-09-20 20:47 | disposition home or self-care (01) ==
PROVIDERS: Emergency Provider Emergency Medicine
DX: K92.0 Hematemesis (principal); A04.8 Other specified bacterial intestinal infections; Z72.0 Tobacco use
CPT/HCPCS: 80048; 80076; 83690; 85025; 85610; 85730; 96365; 96375; 99285; J7040; J2405

== ENCOUNTER 2017-10-05 00:27 | Emergency (ER) | payer MEDICAID, SELFPAY ==
[2017-10-05 00:30] VITALS: BP 139/98; PULSE 99; RESP 17; TEMP 36.9; O2SAT 97; BMI 22.4
--- NOTE | 2017-10-05 00:42 | ED.DCSUM_ITS ---
- ER Visit Summary Date of Service: 10/05/17 Chief Complaint: Pain History of Present Illness: The patient is a 26 M with low back pain. Nothing seemed to bring this on. No injuries or new activities. He never had this before. The pain is over his lower back, bilaterally. Worse with moving and ambulation. Nothing seems to make better. No associated symptoms like fever or chills. No change in bowel or bladder. No weakness or numbness. No abdominal pain or GI symptoms. No symptoms. No history of back surgery. No IV drug abuse or immunocompromise. Physical Examination: Afebrile and vital signs unremarkable. Patient is in no acute distress. Heart regular. Lungs clear. Abdomen soft. Diffuse lumbar tenderness to palpation. Straight leg raise negative. Neurovascular intact distally. Good strength and sensation. Test Results: None indicated Emergency Department Course and Treatment: Patient treated with Norflex and Toradol for presumed myofascial back pain. No indication for imaging or diagnostic testing. Will be prescribed naproxen and Flexeril. He was advised this may take some time to heal and he needs to rest. Follow-up with primary care. Treatment Plan: As above Disposition: Discharged Impression: 1. Acute lumbar back pain This note was generated with [employer] dictation software. It may contain incorrect words, spelling, and punctuation that were not noted in review of the chart prior to signing ED Disposition - Plan for ED Patient: Chief Complaint: Back Referrals: Care Physician,No Primary [Primary Care Provider] -
--- NOTE | 2017-10-05 00:42 | ED.DEP ---
ED Disposition - Plan for ED Patient: Chief Complaint: Back Instructions: ED Spasm Back No Trauma Prescriptions: Naproxen [Naprosyn] 500 mg PO BID PRN #20 tab Cyclobenzaprine [Flexeril] 10 mg PO TID PRN #20 tab PRN Reason: Muscle Spasm Referrals: Coral Martinez MD [COURTESY STAFF PHYSICIAN] -
[2017-10-05] MEDS: Ketorolac 60 MG/2 ML Vial IM (00:44)
[2017-10-05] MEDS: Orphenadrine 60 MG/2 ML Ampul IM (00:44)
== END 2017-10-05 01:05 | disposition home or self-care (01) ==
PROVIDERS: Emergency Provider Emergency Medicine
DX: M54.5 Low back pain (principal); Z72.0 Tobacco use
CPT/HCPCS: 96372; 99282

== ENCOUNTER 2017-10-17 12:08 | Emergency (ER) | payer MEDICAID, SELFPAY ==
[2017-10-17 12:09] VITALS: BP 129/78; PULSE 80; RESP 16; TEMP 37; O2SAT 100; BMI 22.4
[2017-10-17 13:39] VITALS: BP 128/83; PULSE 73; RESP 16; O2SAT 100
--- NOTE | 2017-10-17 14:11 | ED.VISSUMM ---
- ER Visit Summary Date of Service: 10/17/17 Chief Complaint: Right knee pain History of Present Illness: The patient is a 27 M who presents with right knee pain that began after a fall last night. Patient states he tripped over a curb and fell. Patient states he landed on his right knee and right hip. Patient denies any paresthesias or weakness. Patient states pain is worse today. Patient denies any head injury or loss of consciousness. Patient states his pain is worse with ambulation. Patient denies any other injuries. Physical Examination: Vital signs are stable. Patient is afebrile. Patient is in no acute distress. Musculoskeletal exam reveals tenderness over the right knee. There is no effusion. There is no bony crepitance or step-off noted. There is no deformity noted. There is no laxity noted. Sensation was intact to light touch in all dermatomes the lower extremity. Posterior tibial pulses are equal bilateral. Strength is 5/5. The remaining physical exam is within normal limits. Test Results: X-rays of the right knee were obtained. There is no acute fracture. Emergency Department Course and Treatment: Patient was instructed to ice and elevate the right knee. Patient was given a note for work for today. Patient was instructed to take ibuprofen or Tylenol as needed for pain. Patient understood and was agreeable with the plan. All questions were answered. Disposition: Discharge home Impression: Right knee sprain This note was generated with [employer] dictation software. It may contain incorrect words, spelling, and punctuation that were not noted in review of the chart prior to signing ED Disposition - Plan for ED Patient: Disposition: Home or Assisted Living Chief Complaint: Lower Extremity Injury Diagnosis: Right knee sprain Instructions: ED Sprain Knee Referrals: Care Physician,No Primary [Primary Care Provider] -
== END 2017-10-17 14:25 | disposition home or self-care (01) ==
PROVIDERS: Emergency Provider Emergency Medicine
DX: S83.91XA Sprain of unspecified site of right knee, initial encounter (principal); W18.09XA Striking against other object with subsequent fall, initial encounter; Y93.9 Activity, unspecified; Y92.9 Unspecified place or not applicable; Z72.0 Tobacco use
CPT/HCPCS: 73562; 99282

== ENCOUNTER 2018-02-12 00:51 | Emergency (ER) | payer MEDICAID, SELFPAY ==
[2018-02-12 00:52] VITALS: BP 128/72; PULSE 96; RESP 18; TEMP 36.6; O2SAT 97; BMI 25.1
[2018-02-12] MEDS: Mag Hydrox/Al Hydrox/Simeth 30 ML UDC PO (01:30)
[2018-02-12 01:45] LABS: Absolute Neutrophil Count 9.7 X10^3/uL (2.0-7.7); Basophil# 0.03 X10^3/uL; Basophil% 0.2 % (0-1); Eosinophil# 0.07 X10^3/uL; Eosinophils% 0.6 % (0-5); Hematocrit 47.4 % (40-54); Hemoglobin 16.5 g/dl (13.0-16.5); Lymphocyte % 12.2 % (19-41); Mean Corp Hgb Conc 34.8 g/gl (32-36); Mean Corpuscular Hgb 31.9 pg (27.0-32.0); Mean Corpuscular Volume 91.5 fL (80-94); Monocyte# 0.98 X10^3/uL; Neutrophil % 78.8 % (47-70); Platelet Count 257 K/mm3 (150-450); RBC Distribution Width CV 12.8 % (11.6-14.6); RBC Distribution Width SD 42.5 fl (35.1-43.9); Red Blood Count 5.18 M/mm3 (4.6-6.2); White Blood Count 12.3 K/mm3 (4.4-11.0)
[2018-02-12 01:52] LABS: POSITIVE COUNT NO; POSITIVE DIFFERENTIAL NO; POSITIVE MORPHOLOGY NO
[2018-02-12 02:00] LABS: AST(SGOT) 19 U/L (15-37); Alanine Aminotransfer ALT/SGPT 28 U/L (16-61); Albumin, Serum 3.8 g/dL (3.2-5.0); Alkaline Phosphatase 66 U/L (45-117); Anion Gap 8 (5-15); BUN 16 mg/dL (7-18); BUN/Creat Ratio 14.7 RATIO (10-20); Chloride 103 mmol/L (98-107); Creatinine, Serum 1.09 mg/dL (0.70-1.30); EST Glomerular Filtration Rate 85 mL/min (>60); Est Glom Filt Rate - Afr Amer 103 mL/min (>60); Estimated Creatinine Clearance 107.46 ml/min; Globulin 3.7 g/dL (2.2-4.2); Glucose 91 mg/dL (74-106); Lipase 84 U/L (73-393); Potassium 3.7 mmol/L (3.5-5.1); Protein, Total 7.5 g/dL (6.4-8.2); Sodium Level 140 mmol/L (136-145)
--- NOTE | 2018-02-12 02:13 | ED.VISSUMM ---
- ER Visit Summary Date of Service: 02/12/18 Chief Complaint: Abdominal pain History of Present Illness: The patient is a 27 M who presents with epigastric abdominal pain. He has a history of gastritis and H. pylori. He did recently complete antibiotic therapy. He was previously on Prilosec which she had been taking [id number] but has been unable to afford this recently. He denies any nausea vomiting or diarrhea. Physical Examination: Afebrile vitals are unremarkable No distress Heart regular rate and rhythm Lungs are clear Abdomen soft nondistended he does have epigastric abdominal tenderness without guarding without rebound Test Results: CBC CMP lipase notable only for mild leukocytosis with a white count of 12.3, normal hepatic function and lipase. Emergency Department Course and Treatment: Patient was treated with a GI cocktail here and reports improvement of symptoms. He was written a prescription for Prilosec. He was advised to follow-up with his surgeon. He understands to return for new or worsening symptoms. He was discharged. Treatment Plan: [] Disposition: Discharge Impression: Gastritis This note was generated with [employer] dictation software. It may contain incorrect words, spelling, and punctuation that were not noted in review of the chart prior to signing ED Disposition - Plan for ED Patient: Chief Complaint: Abd Pain Referrals: Care Physician,No Primary [Primary Care Provider] -
--- NOTE | 2018-02-12 02:15 | ED.DEP ---
ED Disposition - Plan for ED Patient: Chief Complaint: Abd Pain Instructions: ED Gastritis Prescriptions: Omeprazole [Prilosec] 20 mg PO DAILY #30 cap Referrals: Care Physician,No Primary [Primary Care Provider] - Dmitri Vick MD [STAFF PHYSICIAN] -
[2018-02-12 02:23] VITALS: BP 122/60; PULSE 78; RESP 16; O2SAT 98
== END 2018-02-12 02:24 | disposition home or self-care (01) ==
LOC: ED 01:54
PROVIDERS: Emergency Provider Emergency Medicine
DX: K29.70 Gastritis, unspecified, without bleeding (principal)
CPT/HCPCS: 80053; 83690; 85025; 99283; A4216

== ENCOUNTER 2018-04-04 00:15 | Emergency (ER) | payer MEDICAID, SELFPAY ==
[2018-04-04 00:15] VITALS: BP 143/85; PULSE 77; RESP 16; TEMP 36.4; O2SAT 97; BMI 22.1
[2018-04-04 00:22] VITALS: PULSE 77; RESP 16; TEMP 36.6; O2SAT 97
[2018-04-04] MEDS: Mag Hydrox/Al Hydrox/Simeth 30 ML UDC PO (00:37)
--- NOTE | 2018-04-04 00:40 | RAD_ITS ---
STUDY: X-RAY CHEST REASON FOR EXAM: Male, 27 years old. Chest pain TECHNIQUE: Frontal and lateral views of the chest. COMPARISON: None. FINDINGS: The lungs are clear and expanded. There is no demonstrated pleural abnormality. Normal size heart. Normal mediastinum and anam. Normal visualized pulmonary arteries. Normal visualized aortic arch and descending thoracic aorta. Normal visualized thoracic spine. Normal visualized ribs, clavicles, and shoulders. There is no demonstrated abnormality of the visualized soft tissue structures of the upper abdomen. RAD/Chest PA and Lateral IMPRESSION: Normal x-ray examination of the chest. Electronically Signed: Dwain Shipley MD at 1:35 EST Tel , Service support ,
--- NOTE | 2018-04-04 01:05 | EKG12_ITS ---
Test Reason : CP Blood Pressure : / mmHG Vent. Rate : 077 BPM Atrial Rate : 077 BPM P-R Int : 124 ms QRS Dur : 080 ms QT Int : 380 ms P-R-T Axes : 065 059 059 degrees QTc Int : 430 ms Normal sinus rhythm Normal ECG Confirmed by MEGHAN VILLAR, MARGO ([id number]), online content editor BRENNON KHAN ([id number] on 04/07/2018 4:46:52 PM Referred By: DC Confirmed By:MARGO CHRISTIANSON MD
[2018-04-04 01:27] VITALS: BP 126/89; PULSE 77; RESP 18; O2SAT 97
--- NOTE | 2018-04-04 01:51 | ED.DCSUM_ITS ---
- ER Visit Summary Date of Service: 04/04/18 Chief Complaint: Chest pain History of Present Illness: The patient is a 27 M with chest pain that started about half an hour prior to arrival. His pain is worse with breathing and he has a sore throat. He has a history of acid reflux but denies any other medical history. He does smoke. When the pain started, he walked about a mile to get to the hospital and did not have any worsening symptoms with exertion. He denies any history of PE or DVT. Denies any history of aortic disease. Denies any history of drug use. Denies fevers. Physical Examination: Afebrile and vital signs unremarkable. Alert and oriented. No acute distress. Skin appears normal in color without pallor or diaphoresis. Heart regular rate and rhythm. Lungs clear bilaterally. Abdomen soft and nontender. Test Results: EKG showed sinus rhythm at a rate of 77. No sign of acute ischemia or infarction pattern. Chest x-ray was unremarkable. Emergency Department Course and Treatment: Patient complains of chest pain but he is 27 and has no significant medical history. He is a smoker and has a history of reflux. I suspect this might be from reflux. His x-ray and EKG were unremarkable. No risk factors for PE or aortic disease. No further emergent workup is indicated. He was treated with a GI cocktail and will be discharged on an acid medications. Follow-up with primary care. Return for any new or worsening issues right away. Treatment Plan: Above Disposition: Discharge Impression: 1. Chest pain unclear etiology This note was generated with [employer] dictation software. It may contain incorrect words, spelling, and punctuation that were not noted in review of the chart prior to signing ED Disposition - Plan for ED Patient: Referrals: Care Physician,No Primary [Primary Care Provider] -
--- NOTE | 2018-04-04 01:52 | ED.DEP ---
ED Disposition - Plan for ED Patient: Instructions: ED Chest Pain Atypical Unkn Cause Prescriptions: Omeprazole Magnesium [Prilosec Otc] 20 mg PO DAILY #30 tablet. Referrals: Care Physician,No Primary [Primary Care Provider] -
[2018-04-04 02:03] VITALS: BP 120/80; PULSE 73; PULSE 78; RESP 16; O2SAT 98
== END 2018-04-04 02:17 | disposition home or self-care (01) ==
LOC: ED 00:57
PROVIDERS: Emergency Provider Emergency Medicine
DX: R07.9 Chest pain, unspecified (principal); K21.9 Gastro-esophageal reflux disease without esophagitis; F17.200 Nicotine dependence, unspecified, uncomplicated
CPT/HCPCS: 71046; 93005; 99283; A4216

== ENCOUNTER 2018-04-12 21:12 | Emergency (ER) | payer MEDICAID, SELFPAY ==
[2018-04-12 21:13] VITALS: BP 131/78; PULSE 82; RESP 15; TEMP 36.1; O2SAT 97; BMI 22.5
[2018-04-12] MEDS: Orphenadrine 60 MG/2 ML Ampul IM (21:45)
[2018-04-12] MEDS: Ketorolac 60 MG/2 ML Vial IM (21:45)
--- NOTE | 2018-04-12 21:54 | ED.DCSUM_ITS ---
- ER Visit Summary Date of Service: 04/12/18 Chief Complaint: Back pain History of Present Illness: The patient is a 27 M presenting with back pain. Patient states he fell on ice 3 days ago. He landed on his back. He did not hit his head or lose consciousness. He has tried no medication at home. He is able to ambulate. He denies bowel or bladder incontinence. Denies other complaints. Physical Examination: Vitals are stable. Patient is afebrile. Alert no acute distress. HEENT exam is unremarkable. Neck is nontender Lungs are clear and equal bilaterally. Heart is regular rate and rhythm. Abdomen is soft nontender nondistended. Back: Mild diffuse lumbar tenderness. No step-off. Straight leg raise negative bilaterally. Extremities are unremarkable. Skin is warm and dry. No focal neurologic deficit. Normal strength and sensation Remainder of exam is unremarkable. Emergency Department Course and Treatment: Patient was given Toradol, Norflex IM. Lumbar xray shows bilateral spondylolysis at L5 no listhesis Mild multilevel Schmorl's nodes. Patient is feeling improved. He is given prescription for Naprosyn. Advised to follow-up with primary care physician. Advised return to ED for worsening complaints. Disposition: Discharge home Impression: Lumbar strain status post fall This note was generated with [employer] dictation software. It may contain incorrect words, spelling, and punctuation that were not noted in review of the chart prior to signing ED Disposition - Plan for ED Patient: Referrals: Care Physician,No Primary [Primary Care Provider] -
--- NOTE | 2018-04-12 22:00 | RAD_ITS ---
STUDY: X-RAY - LUMBAR SPINE REASON FOR EXAM: Male, 27 years old. Fall, back pain TECHNIQUE: AP and lateral view(s) of the lumbar spine were obtained. COMPARISON: None FINDINGS: Normal lumbar lordosis. There is no substantial scoliosis. There is a normal alignment of the vertebrae. There are mild multilevel Schmorl's nodes.. Normal disc space heights. The soft tissue structures are unremarkable. There are spondylitic defects at L5. There is no listhesis. RAD/Lumbar Spine 2 or 3 Views IMPRESSION: Bilateral spondylolysis at L5 no listhesis Mild multilevel Schmorl's nodes Electronically Signed: Magdaleno Low, at 22:57 EST Tel , Service support ,
--- NOTE | 2018-04-12 23:11 | ED.DEP ---
ED Disposition - Plan for ED Patient: Instructions: ED Sprain Strain Lumbar Prescriptions: Naproxen [Naprosyn] 500 mg PO BID PRN #20 tablet Referrals: Robson Sanchez MD [NON-STAFF] -
[2018-04-12 23:27] VITALS: BP 106/71; PULSE 83; RESP 16; O2SAT 97
== END 2018-04-12 23:28 | disposition home or self-care (01) ==
LOC: ED 21:41
PROVIDERS: Emergency Provider Emergency Medicine
DX: S39.012A Strain of muscle, fascia and tendon of lower back, initial encounter (principal); W00.9XXA Unspecified fall due to ice and snow, initial encounter; Y93.9 Activity, unspecified; Y92.9 Unspecified place or not applicable; Z72.0 Tobacco use
CPT/HCPCS: 72100; 96372; 99282

== ENCOUNTER 2018-04-16 11:36 | Emergency (ER) | payer MEDICAID, SELFPAY ==
[2018-04-16 11:36] VITALS: BP 131/83; PULSE 79; RESP 16; TEMP 36.7; O2SAT 97; BMI 22.8
--- NOTE | 2018-04-16 11:55 | CT_ITS ---
STUDY: CT BRAIN WITHOUT CONTRAST REASON FOR EXAM: Male, 27 years old. Headache, trauma last night. RADIATION DOSAGE (If Supplied By Facility): CTDIvol = ( 44.99 ) mGy, DLP = ( 779.24 ) mGycm TECHNIQUE: Transaxial CT imaging of the brain was performed without administration of intravenous contrast material. Individualized dose optimization techniques were used for this CT. COMPARISON: None. FINDINGS: Normal soft tissue structures. Normal calvarium. Normal size ventricles and extra-axial spaces for the patient's age. Normal white matter tracts of the cerebral hemispheres. Normal basal ganglia and thalami. Normal brainstem. Normal cerebellum. There is no intracranial hemorrhage. There are no findings of an acute ischemic infarction. Normal visualized paranasal sinuses. CT/Brain/Head without Contrast IMPRESSION: Normal unenhanced CT scan of the brain. Electronically Signed: Terra Rudolph, at 12:48 EST Tel , Service support ,
--- NOTE | 2018-04-16 13:25 | ED.DCSUM_ITS ---
- ER Visit Summary Date of Service: 04/16/18 Chief Complaint: Head injury History of Present Illness: The patient is a 27 M who states he has a headache. He states that last night around 11 his knee gave out he fell backwards striking his head on the ground. He denies having a headache after he fell. He woke this morning at 7:00 and had a headache. No seizure activity. No nausea vomiting. Physical Examination: Afebrile vital signs are stable Gen: Well-nourished well-developed Head: Normocephalic there is a scalp hematoma on the occiput Eyes: Perrl EOMI ENT: TMs clear no rhinorrhea moist mucous membranes Neck: Supple no lymphadenopathy no JVD nontender CVS: Regular rate rhythm no murmurs normal S1-S2 Respiratory: No distress clear to auscultation bilaterally chest nontender Abdomen: Soft nontender nondistended normal bowel sounds no masses Back: Nontender Extremity: Nontender no edema Skin: Normal color no rash Neuro: alert orientated ?3 CN II-XII intact normal strength sensation reflexes gait cerebellar Psych: Normal affect normal mood Test Results: CT brain was negative for intracranial hemorrhage or skull fracture Emergency Department Course and Treatment: Patient will receive a dose of Toradol instructions for anti-inflammatories at home. Follow-up with primary care if not improving Impression: 1. Scalp hematoma 2. Closed head injury This note was generated with [employer] dictation software. It may contain incorrect words, spelling, and punctuation that were not noted in review of the chart prior to signing ED Disposition - Plan for ED Patient: Disposition: Home or Assisted Living Instructions: ED Head Injury Closed Referrals: Garry Ballesteros MD [STAFF PHYSICIAN] - 1 Week if not improving
[2018-04-16] MEDS: Ketorolac 60 MG/2 ML Vial IM (13:34)
[2018-04-16 14:09] VITALS: BP 141/100; PULSE 80; RESP 17
== END 2018-04-16 12:34 | disposition home or self-care (01) ==
PROVIDERS: Emergency Provider Emergency Medicine
DX: S00.03XA Contusion of scalp, initial encounter (principal); W19.XXXA Unspecified fall, initial encounter; Y93.9 Activity, unspecified; Y92.9 Unspecified place or not applicable; Z72.0 Tobacco use
CPT/HCPCS: 70450; 96372; 99282

== ENCOUNTER 2018-04-28 06:36 | Emergency (ER) | payer MEDICAID, SELFPAY ==
[2018-04-28 06:37] VITALS: BP 123/81; PULSE 95; RESP 16; TEMP 35.9; O2SAT 100; BMI 22.6
[2018-04-28 06:41] VITALS: RESP 16
--- NOTE | 2018-04-28 06:53 | ED.VISSUMM ---
- ER Visit Summary Date of Service: 04/28/18 Chief Complaint: Vomiting blood History of Present Illness: The patient is a 27 M with history of gastritis and H. pylori who presents complaining of vomiting up blood. Patient states he woke up 5 hours ago vomiting bright red blood. He states he vomited approximately 12 times. He had no prodromal symptoms. He is complaining of abdominal and chest pain now, nausea and he states he had a few episodes of watery stool yesterday. He denies any blood in stool. Denies any fever, shortness of breath. He was drinking heavily 3 days ago. He does smoke tobacco. He denies any other medical history. Physical Examination: Vital signs: afebrile, hemodynamically stable, no hypoxia on room air General: well nourished, well developed, in no distress Skin: warm, dry, no rash, no pallor HEENT: normocephalic and atraumatic; PERRL, EOMI, moist mucous membranes, no blood noted in the posterior oropharynx Cardiovascular: regular rate and rhythm without murmurs, no peripheral edema, 2+ pulses all distal extremities Respiratory: No increased work of breathing, lungs are clear to auscultation bilaterally, no rales, rhonchi or wheezing Abdominal: Abdomen is soft, diffusely tender with normoactive bowel sounds, no guarding or rebound, no rigidity, no masses MSK: Moves all extremities, no deformities, normal strength Neuro: Awake and alert, oriented ?4. No facial droop, sensation and motor function intact and symmetric Test Results: [] Emergency Department Course and Treatment: Patient has had no vomiting episodes since arriving in the emergency department. Because of his chief complaint of hematemesis, an NG tube will be placed. Patient was given IV fluids, zofran and protonix. Results will be followed up by Dr. Foley, and final disposition pending results of workup. Treatment Plan: [] Disposition: [] Impression: vomiting illness This note was generated with [employer] dictation software. It may contain incorrect words, spelling, and punctuation that were not noted in review of the chart prior to signing ED Disposition - Plan for ED Patient: Referrals: Care Physician,No Primary [Primary Care Provider] -
[2018-04-28 07:18] LABS: ALB/GLOB Ratio 1.1 RATIO (0.9-2.4); AST(SGOT) 24 U/L (15-37); Alanine Aminotransfer ALT/SGPT 28 U/L (16-61); Albumin, Serum 3.9 g/dL (3.2-5.0); Alkaline Phosphatase 71 U/L (45-117); Anion Gap 6 (5-15); BUN 13 mg/dL (7-18); Calcium,Total 8.9 mg/dL (8.5-10.1); Chloride 104 mmol/L (98-107); EST Glomerular Filtration Rate 94 mL/min (>60); Est Glom Filt Rate - Afr Amer 114 mL/min (>60); Estimated Creatinine Clearance 114.33 ml/min; Globulin 3.7 g/dL (2.2-4.2); Glucose 86 mg/dL (74-106); Lipase 84 U/L (73-393); Potassium 3.8 mmol/L (3.5-5.1); Protein, Total 7.6 g/dL (6.4-8.2); Sodium Level 143 mmol/L (136-145)
[2018-04-28] MEDS: 0.9% Normal Saline 1,000 ML 1000 ML IV (07:18)
[2018-04-28] MEDS: Ondansetron 4 MG/2 ML Vial IV (07:18)
--- NOTE | 2018-04-28 07:18 | ED.RN ---
PATIENT REFUSED NG TUBE. DR. DONALDSON NOTIFIED.
[2018-04-28 07:20] LABS: Absolute Lymphocyte Count 0.94 X10^3/ul (0.83-4.51); Absolute Neutrophil Count 13.4 X10^3/uL (2.0-7.7); Basophil# 0.04 X10^3/uL; Basophil% 0.3 % (0-1); Eosinophil# 0.19 X10^3/uL; Eosinophils% 1.2 % (0-5); Hematocrit 49.3 % (40-54); Hemoglobin 16.3 g/dl (13.0-16.5); Lymphocyte # 0.94 X10^3/ul (4.0); Lymphocyte % 6.1 % (19-41); Mean Corp Hgb Conc 33.1 g/gl (32-36); Mean Corpuscular Hgb 31.1 pg (27.0-32.0); Mean Corpuscular Volume 94.1 fL (80-94); Mean Platelet Vol. 11.5 fl (6.2-12.0); Monocyte# 0.88 X10^3/uL; Monocyte% 5.7 % (0-10); Neutrophil # 13.38 X10^3/uL (2.7-7.7); Neutrophil % 86.5 % (47-70); Platelet Count 249 K/mm3 (150-450); RBC Distribution Width SD 43.7 fl (35.1-43.9); Red Blood Count 5.24 M/mm3 (4.6-6.2); White Blood Count 15.5 K/mm3 (4.4-11.0)
[2018-04-28 07:22] LABS: POSITIVE COUNT NO; POSITIVE DIFFERENTIAL NO; POSITIVE MORPHOLOGY NO
--- NOTE | 2018-04-28 07:22 | RAD_ITS ---
STUDY: X-RAY - ACUTE ABDOMINAL SERIES REASON FOR EXAM: Male, 27 years old. NAUSEA, VOMITING, AABDOMINAL PAIN; H/O H-PYLORI TECHNIQUE: Single view of the chest. Supine, erect, and decubitus view(s) of the abdomen were obtained. COMPARISON: None. FINDINGS: The lungs are clear and expanded. Normal size heart. Normal mediastinum and anam. Normal visualized pulmonary arteries. Normal visualized aortic arch and descending thoracic aorta. There is a non-specific bowel gas pattern. The soft tissue structures of the abdomen and pelvis are unremarkable. Normal visualized osseous structures. RAD/Acute Abdomen Inc Chest IMPRESSION: Normal x-ray examination of the chest, abdomen, and pelvis. Electronically Signed: Olman Kang, at 9:42 EDT Tel , Service support ,
[2018-04-28 07:39] VITALS: BP 133/80; PULSE 83; RESP 16; TEMP 36.7; O2SAT 100
--- NOTE | 2018-04-28 07:45 | ED.DCSUM_ITS ---
- ER Visit Summary Date of Service: 04/28/18 Chief Complaint: [] History of Present Illness: The patient is a 27 M [] Physical Examination: [] Test Results: [] Emergency Department Course and Treatment: [] Treatment Plan: [] Disposition: [] Impression: [] This note was generated with [employer] dictation software. It may contain incorrect words, spelling, and punctuation that were not noted in review of the chart prior to signing ED Disposition - Plan for ED Patient: Disposition: Home or Assisted Living Instructions: [place] Tear Prescriptions: Ondansetron [Zofran Odt] 4 mg PO Q8H PRN PRN #10 tab PRN Reason: Nausea Referrals: Care Physician,No Primary [Primary Care Provider] - Macy De Jesus [NON-STAFF] - 3-5 Days
[2018-04-28 07:56] VITALS: BP 101/88; PULSE 94; RESP 16; O2SAT 98
== END 2018-04-28 08:01 | disposition home or self-care (01) ==
PROVIDERS: Emergency Provider Emergency Medicine
DX: K92.0 Hematemesis (principal); K22.6 Gastro-esophageal laceration-hemorrhage syndrome; F17.210 Nicotine dependence, cigarettes, uncomplicated; Z87.19 Personal history of other diseases of the digestive system; Z72.89 Other problems related to lifestyle
CPT/HCPCS: 74022; 80053; 83690; 85025; 96361; 96374; 96375; 99285; J7030; A4216; J2405; J3490

== ENCOUNTER 2018-08-14 11:07 | Emergency (ER) | payer MEDICAID, SELFPAY ==
[2018-08-14 11:08] VITALS: BP 129/92; PULSE 99; RESP 16; TEMP 36.6; O2SAT 96; BMI 23.0
--- NOTE | 2018-08-14 11:17 | CT_ITS ---
STUDY: CT BRAIN WITHOUT CONTRAST REASON FOR EXAM: Male, 27 years old. Head trauma. RADIATION DOSAGE (If Supplied By Facility): CTDIvol = ( 44.99 ) mGy, DLP = ( 796.11 ) mGycm TECHNIQUE: Transaxial CT imaging of the brain was performed without administration of intravenous contrast material. Individualized dose optimization techniques were used for this CT. COMPARISON: Comparison is made with prior study dated April 16, 2018. FINDINGS: Normal soft tissue structures. Normal calvarium. Normal size ventricles and extra-axial spaces for the patient's age. Normal white matter tracts of the cerebral hemispheres. Normal basal ganglia and thalami. Normal brainstem. Normal cerebellum. There is no intracranial hemorrhage. There are no findings of an acute ischemic infarction. Normal visualized paranasal sinuses. CT/Brain/Head without Contrast IMPRESSION: Normal unenhanced CT scan of the brain. Electronically Signed: Gino Murphy, at 11:46 EDT , Service support ,
--- NOTE | 2018-08-14 11:17 | ED.VIS.GEN ---
History of Present Illness Chief Complaint: Head Injury Detail of Chief Complaint: Patient fell multiple times and struck his head last night while intoxicate Informant: Patient Onset: Yesterday Context: Gradual Onset Timing: Continuous Quality: Dull, aching Location: Posterior head Current Severity: Moderate Maximum Severity: Moderate Associated Symptoms: Mild nausea Narrative: Patient presents to the emergency department with head injury. He states he was drinking with friends last night. He states that he stood up and lost his balance. He fell and struck a futon and then went to the ground. He states his friends try to help him up and he was walking outside. He then fell when he was going down the stairs. He has had again. He is unsure if he lost consciousness. Since then, he has had a mild headache. He denies any fevers or chills. He has been mildly nauseated without vomiting. He is not on anticoagulants. He denies any change in gait. Past Medical History - Allergies and Home Meds Allergies/Adverse Reactions: Allergies famotidine [From Pepcid] Allergy (Verified 08/14/18 11:07) Angioedema Penicillins Adverse Reaction (Verified 08/14/18 11:07) Swelling Primary Care Physician: Care Physician,No Primary [Primary Care Provider] - Past Medical History: None Surgical History: no surgical history, - - Adenoidectomy. Smoking Status: Current every day smoker Alcohol: Occasional Drugs: None - Family History Maternal Family History: Family History (Last Reviewed 09/05/17 @ 13:50 by Allyson Clemente) Father Asthma Hypertension CAD (coronary artery disease) Cancer Seizures CVA (cerebral vascular accident) Family History: Reports: No pertinent history Paternal Family History: Family History (Last Reviewed 09/05/17 @ 13:50 by Allyson Clemente) Father Asthma Hypertension CAD (coronary artery disease) Cancer Seizures CVA (cerebral vascular accident) Family History: Reports: No pertinent history Review of Systems General: Denies: Chills, Fever, Sweats Eyes: Denies: Visual changes - bilaterally, Diplopia ENT: Denies: Rhinorrhea, Sore throat Cardiovascular: Denies: Chest pain, Palpitations Respiratory: Denies: Dyspnea, Cough, Dyspnea on exertion Gastrointestinal: Reports: Nausea Genitourinary: Denies: Dysuria, Hematuria, Frequency Musculoskeletal: Reports: Arthralgias Skin: Denies: Rash, Wounds Neurological: Reports: Headache Psych: Denies: Depression Endocrine: Denies: Polyuria Hematologic: Denies: Easy bruising Physical Exam Vital Signs/Narrative: Vital Signs Temp Pulse Resp BP Pulse Ox 08/14/18 11:08 97.9 F 99 16 129/92 H 96 General: Well nourished, Well developed, No Acute Distress Head: Normocephalic, Atraumatic Eyes: Perrl, EOMI ENT: Moist mucous membranes, No rhinorrhea Neck: Supple, Nontender Cardiovascular: Regular rate, Regular rhythm, No murmurs Respiratory: No distress, CTA bilaterally, Chest nontender Abdomen: Soft, Nontender, Nondistended, Normal bowel sounds Back: Nontender, Normal Inspection Extremities: Nontender, No edema Skin: Normal color, No rash Neurological: Alert, Oriented x3, Cranial nerves II-XII grossly intact, Normal Strength, Normal Sensation, Normal DTR, Normal Gait. Negative for: Parasthesia, Weakness Psychological: Normal affect, Normal Mood Diagnostic/Tx/Re-eval Clinical Impression(s) from Imaging Studies Brain CT 08/14/18 11:17 IMPRESSION: Normal unenhanced CT scan of the brain. Electronically Signed: Gino Murphy, at 11:46 EDT , Service support , - Medical Decision Making The patient has symptoms of concussion. He is a GCS of 15. However, has been nauseated and had multiple injuries and was intoxicated and cannot recall the definitive injuries. Patient underwent head CT. This is unremarkable for acute process. At this point, I do feel it is safe for outpatient therapy. He has a normal neurologic examination. He is a negative head CT. He was counseled on concerning symptoms to return. He will be discharged home. ED Disposition - Plan for ED Patient: Instructions: CONCUSSION, No Wake Up Prescriptions: Naproxen [Naprosyn] 500 mg PO BID PRN #20 tab Prescription Printed Ondansetron [Zofran Odt] 4 mg PO Q8H PRN PRN #10 tab PRN Reason: Nausea Prescription Printed Referrals: Care Physician,No Primary [Primary Care Provider] -
[2018-08-14] MEDS: Ondansetron ODT 4 MG Tablet PO (11:51)
[2018-08-14] MEDS: HYDROcodone Bitartrate/Apap 5/325 Tablet PO (11:51)
== END 2018-08-14 12:28 | disposition home or self-care (01) ==
PROVIDERS: Emergency Provider Emergency Medicine
DX: S09.90XA Unspecified injury of head, initial encounter (principal); W10.9XXA Fall (on) (from) unspecified stairs and steps, initial encounter; Y93.89 Activity, other specified; Y92.9 Unspecified place or not applicable; F17.200 Nicotine dependence, unspecified, uncomplicated
CPT/HCPCS: 70450; 99282

== ENCOUNTER 2018-11-10 10:23 | Emergency (ER) | payer SELFPAY ==
[2018-11-10 10:24] VITALS: BP 115/75; PULSE 69; RESP 17; TEMP 36.8; O2SAT 97; BMI 22.6
--- NOTE | 2018-11-10 11:05 | RAD_ITS ---
STUDY: X-RAY CHEST REASON FOR EXAM: Male, 28 years old. Chest pain. TECHNIQUE: Frontal and lateral views of the chest. COMPARISON: April 28, 2018 FINDINGS: The lungs are clear and expanded. There is no demonstrated pleural abnormality. Normal size heart. Normal mediastinum and anam. Normal visualized pulmonary arteries. Normal visualized aortic arch and descending thoracic aorta. Normal visualized thoracic spine. Normal visualized ribs, clavicles, and shoulders. There is no demonstrated abnormality of the visualized soft tissue structures of the upper abdomen. RAD/Chest PA and Lateral IMPRESSION: No interval change. Normal chest. Electronically Signed: Servando Herrera MD at 11:47 EDT , Service support ,
--- NOTE | 2018-11-10 11:05 | EKG12_ITS ---
Test Reason : CHEST OTHER Blood Pressure : / mmHG Vent. Rate : 075 BPM Atrial Rate : 075 BPM P-R Int : 122 ms QRS Dur : 080 ms QT Int : 396 ms P-R-T Axes : 060 033 037 degrees QTc Int : 442 ms Normal sinus rhythm Normal ECG Confirmed by PABLITO VILLAR, YADIRA ([id number]), editor publications JORDEN THOMPSON ([id number]) on 11/11/2018 12:07:58 PM Referred By: MR Confirmed By:YADIRA KENNEY MD
[2018-11-10 11:10] VITALS: O2SAT 99
[2018-11-10] MEDS: hydrOXYzine PAM 25 MG Capsule PO (11:13)
[2018-11-10] MEDS: Aspirin 81 MG TAB.CHEW 324 MG PO (11:13)
[2018-11-10 11:22] LABS: Absolute Neutrophil Count 4.7 X10^3/uL (2.0-7.7); Basophil# 0.02 X10^3/uL; Basophil% 0.3 % (0-1); Eosinophil# 0.05 X10^3/uL; Eosinophils% 0.7 % (0-5); Hematocrit 47.7 % (40-54); Hemoglobin 15.9 g/dL (13.0-16.5); Lymphocyte % 25.4 % (19-41); Mean Corp Hgb Conc 33.3 g/dL (32-36); Mean Corpuscular Hgb 30.2 pg (27.0-32.0); Mean Corpuscular Volume 90.7 fL (80-94); Mean Platelet Vol. 11.4 fl (6.2-12.0); Monocyte# 0.57 X10^3/uL; NRBC Flagged by Analyzer 0 % (0-5); Neutrophil # 4.65 X10^3/uL (2.7-7.7); Neutrophil % 65.5 % (47-70); Platelet Count 245 K/mm3 (150-450); RBC Distribution Width CV 12.3 % (11.6-14.6); RBC Distribution Width SD 40.1 fl (35.1-43.9); Red Blood Count 5.26 M/mm3 (4.6-6.2); White Blood Count 7.1 K/mm3 (4.4-11.0)
--- NOTE | 2018-11-10 11:34 | ED.VIS.CHEST ---
History of Present Illness Chief Complaint: Chest Other Informant: Patient Narrative: Patient presenting for evaluation secondary to chest pain. Patient states that since yesterday at about 7 PM he has had persistent chest pain. He states that this started after he was bending over the sandoval of his car for 9 hours while he was fixing his power steering. He states that he has had continuous pain since then that is worse with palpation movement, and also has somewhat of an exertional component. Patient denies any lightheadedness or shortness of breath. Denies any hemoptysis. Patient is a ex-smoker, quit about 2 years ago. Patient has a underlying history of hypertension. Denies any premature family history of heart disease. Denies any DVT or PE risk factors. Review of systems otherwise negative. Past Medical History - Allergies and Home Meds Allergies/Adverse Reactions: Allergies famotidine [From Pepcid] Allergy (Verified 11/10/18 10:23) Angioedema Penicillins Adverse Reaction (Verified 11/10/18 10:23) Swelling Primary Care Physician: Care Physician,No Primary [Primary Care Provider] - Past Medical History: - - Hypertension Surgical History: no surgical history, - - Adenoidectomy. Smoking Status: Former smoker - Family History Maternal Family History: Family History (Last Reviewed 09/05/17 @ 13:50 by Allyson Clemente) Father Asthma Hypertension CAD (coronary artery disease) Cancer Seizures CVA (cerebral vascular accident) Family History: Reports: No pertinent history Paternal Family History: Family History (Last Reviewed 09/05/17 @ 13:50 by Allyson Clemente) Father Asthma Hypertension CAD (coronary artery disease) Cancer Seizures CVA (cerebral vascular accident) Family History: Reports: No pertinent history Review of Systems All systems negative except as indicated Cardiovascular: Reports: Chest pain Physical Exam Vital Signs/Narrative: Vital Signs Temp Pulse Resp BP Pulse Ox 11/10/18 11:10 99 11/10/18 10:24 98.3 F 69 17 115/75 97 Inital Vital Signs reviewed: Yes General: Well nourished, Well developed, No Acute Distress Head: Normocephalic, Atraumatic Eyes: Perrl, EOMI ENT: Moist mucous membranes, No rhinorrhea Neck: Supple, Nontender Cardiovascular: Regular rate, Regular rhythm, No murmurs Respiratory: No distress, CTA bilaterally, Chest nontender Abdomen: Soft, Nontender, Nondistended, Normal bowel sounds Back: Nontender, Normal Inspection Extremities: Nontender, No edema Skin: Normal color, Rash - Diffuse erythematous blanching rash on the chest and back. Nontender. No evidence of petechia or purpura. Neurological: Alert, Oriented x3, Cranial nerves II-XII grossly intact, Normal Strength, Normal Sensation Psychological: Normal affect, Normal Mood Diagnostic/Tx/Re-eval Chest X-Ray - ED: 2 View, Read by ED Physician, Read by Radiologist, Normal - EKG Initial EKG Interpretation: - - Normal sinus rhythm with a ventricular rate of [address] segments normal T waves. Normal ME and QTc intervals. No evidence of WPW or Brugada morphology. - Medical Decision Making Patient presented secondary to chest pain. Story sounds rather atypical and more musculoskeletal but he did exhibit some exertional type components with this so work-up was obtained. CBC chemistry and troponin were found to be negative. Chest x-ray by my personal review as well as radiology is also negative. Patient was given aspirin. Patient also had a nondescript blanching erythematous rash that he said was itchy which likely is an element of some dermatitis for which she was given Vistaril. Patient at this point likely has musculoskeletal chest pain. His heart score is 1. I do not believe he requires further work-up or admission. Patient was discharged with a course of NSAID analgesia. ED Disposition - Plan for ED Patient: Disposition: Home or Assisted Living Diagnosis: Chest wall pain Instructions: Chest Wall Strain Prescriptions: Naproxen [Naprosyn] 500 mg PO BID PRN #20 tab Prescription Printed
[2018-11-10 11:35] LABS: Anion Gap 3 (5-15); BUN 13 mg/dL (7-18); BUN/Creat Ratio 12.9 RATIO (10-20); Calcium,Total 9.1 mg/dL (8.5-10.1); Chloride 107 mmol/L (98-107); Creatinine, Serum 1.01 mg/dL (0.70-1.30); EST Glomerular Filtration Rate 93 mL/min (>60); Est Glom Filt Rate - Afr Amer 112 mL/min (>60); Estimated Creatinine Clearance 114.24 ml/min; Glucose 82 mg/dL (74-106); Potassium 3.9 mmol/L (3.5-5.1); Sodium Level 141 mmol/L (136-145)
[2018-11-10 12:16] VITALS: BP 105/77; PULSE 77; RESP 11; O2SAT 95
== END 2018-11-10 12:25 | disposition home or self-care (01) ==
PROVIDERS: Emergency Provider Emergency Medicine
DX: R07.89 Other chest pain (principal); R21 Rash and other nonspecific skin eruption; I10 Essential (primary) hypertension; Z87.891 Personal history of nicotine dependence; Z82.49 Family history of ischemic heart disease and other diseases of the circulatory system
CPT/HCPCS: 71046; 80048; 84484; 85025; 93005; 99285; A4216

== ENCOUNTER 2019-10-17 16:52 | Emergency (ER) | payer MEDICAID, SELFPAY ==
[2019-10-17 16:53] VITALS: BP 138/80; PULSE 91; RESP 18; TEMP 36.4; O2SAT 100; BMI 22.3
--- NOTE | 2019-10-17 17:06 | ED.DCSUM_ITS ---
History of Present Illness Chief Complaint: Abd Pain Informant: Patient Onset: Yesterday Current Severity: Severe Maximum Severity: Severe Narrative: Patient presents with epigastric pain and vomiting that started yesterday. Patient has a history of H. pylori infection and gastritis. He took antibiotics for H. pylori 2 years ago and remained on Prilosec until 1 month ago. Patient reports developing epigastric pain, nausea, and vomiting last night. He was seen at [facility] earlier today. I was able to review the emergency room note from that visit. It appears the patient was given IV fluids, Protonix, and Zofran. Blood work was unremarkable with a normal hemoglobin and negative lipase. He was prescribed Zofran and Prilosec for home. Patient states as soon as he got home he began vomiting again and now has worsened pain. He has not yet picked up his prescriptions. - Past Medical History (1) H. pylori infection Status: Resolved (2) Asthma Status: Chronic (3) Anxiety Status: Chronic Past Medical History - Allergies and Home Meds Allergies/Adverse Reactions: Allergies famotidine [From Pepcid] Allergy (Verified 10/17/19 16:55) Angioedema Penicillins Adverse Reaction (Verified 10/17/19 16:55) Swelling Primary Care Physician: Care Physician,No Primary [Primary Care Provider] - Prior records reviewed: Yes Surgical History: no surgical history, - - Adenoidectomy. Smoking Status: Former smoker - Family History Maternal Family History: Family History (Last Reviewed 09/05/17 @ 13:50 by Allyson Clemente) Father Asthma Hypertension CAD (coronary artery disease) Cancer Seizures CVA (cerebral vascular accident) Family History: Reports: No pertinent history Paternal Family History: Family History (Last Reviewed 09/05/17 @ 13:50 by Allyson Clemente) Father Asthma Hypertension CAD (coronary artery disease) Cancer Seizures CVA (cerebral vascular accident) Family History: Reports: No pertinent history Review of Systems General: Denies: Chills, Fever Eyes: Denies: Visual changes - bilaterally ENT: Denies: Bilateral ear pain Cardiovascular: Denies: Chest pain Respiratory: Denies: Dyspnea, Cough Gastrointestinal: Reports: Abdominal pain, Nausea, Vomiting. Denies: Diarrhea Skin: Denies: Rash Neurological: Denies: Headache Hematologic: Denies: Easy bruising, Easy bleeding Allergy: Denies: Uticaria Physical Exam Vital Signs/Narrative: Vital Signs Temp Pulse Resp BP Pulse Ox 10/17/19 16:53 97.6 F L 91 18 138/80 H 100 Inital Vital Signs reviewed: Yes Head: Normocephalic, Atraumatic ENT: Moist mucous membranes Neck: Supple Cardiovascular: Regular rate, Regular rhythm Respiratory: No distress, CTA bilaterally Abdomen: Soft, Tender - Mild epigastric tenderness palpation., Hypoactive bowel sounds. Negative for: Guarding, Rebound tenderness Extremities: Nontender Skin: Normal color Neurological: Alert, Oriented x3 Psychological: Tearful, - - Anxious Diagnostic/Tx/Re-eval - Medical Decision Making Labs from earlier today at [facility] are reviewed. White count is 11.2 and hemog lobin 15.7. Lipase was reported to be low. Patient was given 8 mg of p.o. Zofran here, IM Bentyl, and a GI cocktail. I was advised by nursing staff that the patient ran out that his pain was not improved and he had vomited after the GI cocktail. At this time he is given a one-time dose of IM morphine for pain control. I advised the patient that at this time on a Friday evening all the pharmacies in [facility] are closed. 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 We will write him a prescription for Zofran and Phenergan to send to our pharmacy and fill as meds to bed so he will have medication tonight. Patient be discharged to continue his medication at home. He will be referred back to Dr. Vick who has scoped him in the past. ED Disposition - Plan for ED Patient: Disposition: Home or Assisted Living Diagnosis: Gastritis Instructions: ED PEPTIC ULCER vs GASTRITIS Prescriptions: proMETHazine tablet [Phenergan] 25 mg PO Q6H PRN PRN #10 tablet PRN Reason: Nausea Ondansetron [Zofran Odt] 4 mg PO Q8H PRN PRN #10 tablet PRN Reason: Nausea Referrals: Dmitri Vick MD [STAFF PHYSICIAN] - As soon as possible
[2019-10-17] MEDS: Ondansetron ODT 4 MG Tablet 8 MG PO (17:11)
[2019-10-17] MEDS: Dicyclomine 20 MG/2 ML Vial IM (17:11)
[2019-10-17] MEDS: Mag Hydrox/Al Hydrox/Simeth 30 ML UDC PO (17:37)
[2019-10-17] MEDS: morphine 8 MG/ML Syringe IM (18:35)
[2019-10-17 18:52] VITALS: BP 132/81; PULSE 97; RESP 17; O2SAT 96
[2019-10-17 19:15] VITALS: RESP 18
== END 2019-10-17 19:17 | disposition home or self-care (01) ==
PROVIDERS: Emergency Provider Emergency Medicine
DX: K29.70 Gastritis, unspecified, without bleeding (principal); Z87.891 Personal history of nicotine dependence
CPT/HCPCS: 96372; 99283

== ENCOUNTER → 2019-10-22 10:28 | Outpatient (CLI) | payer MEDICAID, SELFPAY ==
[2019-10-20 08:17] VITALS: BMI 22.3
--- NOTE | 2019-10-22 10:29 | US_ITS ---
STUDY: ABDOMINAL ULTRASOUND - RIGHT UPPER QUADRANT REASON FOR VISIT: Male, 29 years old RUQ PAIN TECHNIQUE: Ultrasound evaluation of the right upper quadrant was performed with real-time and static vora-scale imaging. TECHNICAL QUALITY: Adequate. COMPARISON: None. FINDINGS: Liver: The liver measures 15.3 cm. There is normal echogenicity of the liver. The bile ducts are within normal limits. There is hepatic color flow. The direction of portal flow is hepatopetal. There is no demonstrated mass lesion. Gallbladder: Normal distended gallbladder. The gallbladder wall measures 1.5 mm. There is a negative sonographic Shea''s sign. There is no pericholecystic fluid. There are no gallstones. Common Bile Duct (C.B.D.): The common bile duct measures 3.3 mm. Pancreas: Normal size of the head, body and tail of the pancreas. There is normal echogenicity of the pancreas. There is no demonstrated pancreatic mass or cyst. Right Kidney: Normal size of the right kidney. The right kidney measures 11 cm x 4.4 cm x 4.2 cm. Normal renal cortex. The right cortex measures 1.5 cm. There is no demonstrated renal mass or cyst. There is no right hydronephrosis. US/Gallbladder IMPRESSION: Normal right upper quadrant ultrasound examination. Electronically Signed: Gino Murphy, at 12:58 EDT , Service support ,
== END ==
PROVIDERS: Referring Provider Surgery; Visit Provider Surgery
DX: R10.11 Right upper quadrant pain (principal)
CPT/HCPCS: 76705

== ENCOUNTER → 2019-11-05 10:25 | Outpatient (CLI) | payer MEDICAID, SELFPAY ==
[2019-10-20 08:17] VITALS: BMI 22.3
== END ==
PROVIDERS: Anesthesiology; Visit Provider Surgery
PROC: 0DJ08ZZ Inspection of Upper Intestinal Tract, Via Natural or Artificial Opening Endoscopic (ICD-10-PCS; CPT 43235; principal; 2019-11-05 10:25)
DX: Z11.59 Encounter for screening for other viral diseases (principal)
CPT/HCPCS: 87635; C9803; U0003

== ENCOUNTER 2020-03-20 16:50 | Emergency (ER) | payer MEDICAID, SELFPAY ==
[2019-10-20 08:17] VITALS: BMI 22.3
[2020-03-20 16:51] VITALS: BP 139/95; PULSE 91; RESP 16; TEMP 35.3; O2SAT 98; BMI 23.1
--- NOTE | 2020-03-20 17:00 | RAD_ITS ---
STUDY: X-RAY - PELVIS REASON FOR EXAM: Male, 29 years old. Fell Friday on ice. TECHNIQUE: One view of the pelvis was obtained. COMPARISON: 08/14/2017. FINDINGS: There is a non-specific bowel gas pattern. Normal visualized soft tissue structures. Normal bilateral iliac wings, sacroiliac joints and visualized sacrum. Normal visualized bilateral superior and inferior pubic rami. Normal pubic symphysis. Normal ischial tuberosities. Normal visualized right femoral head. Normal right acetabulum. Normal right hip joint. Normal visualized left femoral head. Normal left acetabulum. Normal left hip joint. RAD/Pelvis 1 or 2 Views IMPRESSION: Normal x-ray examination of the pelvis. Electronically Signed: Jevon Lucero MD at 17:48 EST , Service support ,
--- NOTE | 2020-03-20 17:00 | RAD_ITS ---
STUDY: X-RAY - LUMBAR SPINE REASON FOR EXAM: Male, 29 years old. Fell Friday on ice, lower back pain. TECHNIQUE: 3 view(s) of the lumbar spine were obtained. COMPARISON: 04/12/2018 FINDINGS: Normal lumbar lordosis. There is no substantial scoliosis. There is a normal alignment of the vertebrae. Bilateral pars defects of L5 without anterolisthesis. Also present. Normal vertebral bodies and endplates. Normal disc space heights. There is no demonstrated fracture. The soft tissue structures are unremarkable. RAD/Lumbar Spine 2 or 3 Views IMPRESSION: No definite acute or significant abnormality seen. Electronically Signed: Jevon Lucero MD at 17:48 EST , Service support ,
--- NOTE | 2020-03-20 17:00 | ED.VIS.GEN ---
History of Present Illness Chief Complaint: Fall Informant: Patient Narrative: 29-year-old male states that on Friday (post trauma day 3) he slipped on ice and fell onto his right hip. He states that his low back has gotten progressively worse. He notes pain with movement. He denies any radicular symptoms. He denies any bowel or bladder changes. He states that the hip is improving. No fevers rashes, steroid use, back injections, or other red flag history/symptoms. - Past Medical History (1) Anxiety Status: Chronic (2) Asthma Status: Chronic (3) H. pylori infection Status: Resolved Past Medical History - Allergies and Home Meds Allergies/Adverse Reactions: Allergies famotidine [From Pepcid] Allergy (Verified 03/20/20 16:53) Angioedema Penicillins Adverse Reaction (Verified 03/20/20 16:53) Swelling Primary Care Physician: Care Physician,No Primary [Primary Care Provider] - Surgical History: no surgical history, - - Adenoidectomy. Lives: Spouse/ Significant Other Smoking Status: Former smoker Drugs: None - Family History Maternal Family History: Family History (Last Reviewed 09/05/17 @ 13:50 by Allyson Clemente) Father Asthma Hypertension CAD (coronary artery disease) Cancer Seizures CVA (cerebral vascular accident) Family History: Reports: No pertinent history Paternal Family History: Family History (Last Reviewed 09/05/17 @ 13:50 by Allyson Clemente) Father Asthma Hypertension CAD (coronary artery disease) Cancer Seizures CVA (cerebral vascular accident) Family History: Reports: No pertinent history Review of Systems General: Denies: Chills, Fever, Sweats Eyes: Denies: Visual changes - bilaterally, Diplopia ENT: Denies: Rhinorrhea, Sore throat Cardiovascular: Denies: Chest pain, Palpitations Respiratory: Denies: Dyspnea, Cough, Dyspnea on exertion Gastrointestinal: Denies: Abdominal pain, Nausea, Vomiting, Diarrhea, Melena, Hematochezia Genitourinary: Denies: Dysuria, Hematuria, Frequency Musculoskeletal: Reports: Back pain, Extremity Pain Skin: Denies: Rash, Wounds Neurological: Denies: Headache, Weakness, Numbness Physical Exam Vital Signs/Narrative: Vital Signs Temp Pulse Resp BP Pulse Ox 03/20/20 16:51 95.6 F L 91 16 139/95 H 98 Inital Vital Signs reviewed: Yes General: Well nourished, Well developed, No Acute Distress Head: Normocephalic, Atraumatic Eyes: Perrl, EOMI ENT: Moist mucous membranes, No rhinorrhea Neck: Supple, Nontender Cardiovascular: Regular rate, Regular rhythm, No murmurs Respiratory: No distress, CTA bilaterally, Chest nontender Abdomen: Soft, Nontender, Nondistended, Normal bowel sounds Back: - - Tender to palpation lumbar paraspinal musculature. No skin changes to suggest abscess or underlying infection. Extremities: Nontender, No edema Skin: Normal color, No rash Neurological: Alert, Oriented x3, Cranial nerves II-XII grossly intact, Normal Strength, Normal Sensation, Normal DTR Psychological: Normal affect, Normal Mood Diagnostic/Tx/Re-eval - Medical Decision Making My interpretation of the plain films of the pelvis and of the lumbar spine are no acute fracture. This is most likely muscular spasm I can treat with Flexeril. Follow-up with primary care if not improving. ED Disposition - Plan for ED Patient: Disposition: Home or Assisted Living Diagnosis: Contusion of right hip, Lumbar paraspinal muscle spasm Instructions: ED Muscle Spasm, ED Hip Contusion Prescriptions: cycloBENZAPRine HCl [Flexeril] 10 mg PO TID PRN #15 tab PRN Reason: Muscle Spasm Prescription Printed Referrals: Asim Mejia MD [STAFF PHYSICIAN] - 1 Week if not improving
[2020-03-20 17:43] VITALS: RESP 16
== END 2020-03-20 17:44 | disposition home or self-care (01) ==
LOC: ED 17:40
PROVIDERS: Emergency Provider Emergency Medicine
DX: S70.01XA Contusion of right hip, initial encounter (principal); M62.830 Muscle spasm of back; W00.0XXA Fall on same level due to ice and snow, initial encounter; Z87.891 Personal history of nicotine dependence
CPT/HCPCS: 72100; 72170; 99282

== ENCOUNTER 2020-04-03 13:10 | Emergency (ER) | payer MEDICAID, SELFPAY ==
[2020-04-03 13:12] VITALS: BP 135/94; PULSE 84; RESP 15; TEMP 36.8; O2SAT 97; BMI 23.5
--- NOTE | 2020-04-03 13:25 | ED.DCSUM_ITS ---
History of Present Illness Chief Complaint: Burn Informant: Patient Onset: Yesterday Context: Sudden Onset Timing: Continuous Current Severity: Moderate Maximum Severity: Moderate Narrative: Patient is a 29-year-old male who is left-hand dominant presents to the emergency department burn to his left hand. Patient works at [employer]. He states that he was trying to unclog the drain that moves to the grease. He states that his hand slipped on the brush and went into the oil. He suffered flannery on the posterior aspect of the left fifth fourth and third digits. His t etanus is up-to-date. It happened last night. He denies other injury. He is otherwise been in his normal state of health. Prior similar symptoms: No Recent Illness/Hospitalization: No Past Medical History - Allergies and Home Meds Allergies/Adverse Reactions: Allergies famotidine [From Pepcid] Allergy (Verified 04/03/20 13:11) Angioedema Penicillins Adverse Reaction (Verified 04/03/20 13:11) Swelling Primary Care Physician: Care Physician,No Primary [Primary Care Provider] - Prior records reviewed: Yes Past Medical History: None Surgical History: no surgical history, - - Adenoidectomy. Smoking Status: Current some day smoker - Family History Maternal Family History: Family History (Last Reviewed 09/05/17 @ 13:50 by Allyson Clemente) Father Asthma Hypertension CAD (coronary artery disease) Cancer Seizures CVA (cerebral vascular accident) Family History: Reports: No pertinent history Paternal Family History: Family History (Last Reviewed 09/05/17 @ 13:50 by Allyson Clemente) Father Asthma Hypertension CAD (coronary artery disease) Cancer Seizures CVA (cerebral vascular accident) Family History: Reports: No pertinent history Review of Systems General: Denies: Chills, Fever, Sweats Eyes: Denies: Visual changes - bilaterally, Diplopia ENT: Denies: Rhinorrhea, Sore throat Cardiovascular: Denies: Chest pain, Palpitations Respiratory: Denies: Dyspnea, Cough, Dyspnea on exertion Gastrointestinal: Denies: Abdominal pain, Nausea, Vomiting, Diarrhea, Melena, Hematochezia Genitourinary: Denies: Dysuria, Hematuria, Frequency Musculoskeletal: Denies: Back pain, Extremity Pain Skin: Denies: Rash, Wounds Neurological: Denies: Headache, Weakness, Numbness Physical Exam Vital Signs/Narrative: Vital Signs Temp Pulse Resp BP Pulse Ox 04/03/20 13:12 98.2 F 84 15 135/94 H 97 Inital Vital Signs reviewed: Yes General: Well nourished, Well developed, No Acute Distress Head: Normocephalic, Atraumatic Eyes: Perrl, EOMI ENT: Moist mucous membranes, No rhinorrhea Neck: Supple, Nontender Cardiovascular: Regular rate, Regular rhythm, No murmurs Respiratory: No distress, CTA bilaterally, Chest nontender Abdomen: Soft, Nontender, Nondistended, Normal bowel sounds Back: Nontender, Normal Inspection Extremities: No edema, Tenderness - Patient has partial thickness burn on the dorsum of the right fourth and fifth extending over the digit. There is not circumferential. He has a very slight burn at the distal end on the dorsum of the third. There is no skin sloughing. There was one small blister that is already unroofed. Skin: Normal color, No rash Neurological: Alert, Oriented x3, Cranial nerves II-XII grossly intact, Normal Strength, Normal Sensation Psychological: Normal affect, Normal Mood Diagnostic/Tx/Re-eval - Medical Decision Making Patient presents with partial-thickness burn on the dorsum of the left hand. He is left-hand dominant. They are not circumferential. I do not feel that he requires transfer to burn center. Bacitracin dressings were applied. Patient be given short course of analgesics and outpatient burn follow-up. He is comfortable with this plan of care. Impression 1. Partial-thickness burn left fourth, fifth, and third fingers. ED Disposition - Plan for ED Patient: Instructions: ED First- and Second-Degree Flannery ... Prescriptions: Hydrocodone Bitart/Apap 5-325 [[place] 5MG-325MG] 1 tab PO Q6H PRN PRN 3 Days #10 tab PRN Reason: Pain Prescription Printed Referrals: Burn Center ([facility] [GROUP OF PHYSICIANS] -
[2020-04-03] MEDS: HYDROcodone Bitartrate/Apap 5/325 Tablet PO (13:48)
--- NOTE | 2020-04-03 14:00 | ED.RN ---
DISCHARGE INSTRUCTIONS GIVEN TO AND REVIEWED WITH PATIENT, PATIENT DENIES QUESTIONS OR CONCERNS AND VOICES UNDERSTANDING OF DISCHARGE INSTRUCTIONS. PT AMBULATES OUT OF ROOM WITHOUT DIFFICULTY.
== END 2020-04-03 14:01 | disposition home or self-care (01) ==
LOC: ED 13:33
PROVIDERS: Emergency Provider Emergency Medicine
DX: T23.032A Burn of unspecified degree of multiple left fingers (nail), not including thumb, initial encounter (principal); F17.200 Nicotine dependence, unspecified, uncomplicated
CPT/HCPCS: 99283

== ENCOUNTER 2021-03-20 12:05 | Emergency (ER) | payer MEDICAID, SELFPAY ==
[2021-03-20 12:06] VITALS: BP 131/87; PULSE 82; RESP 18; TEMP 35.7; O2SAT 100; BMI 23.3
--- NOTE | 2021-03-20 13:33 | US_ITS ---
STUDY: ABDOMINAL ULTRASOUND - RIGHT UPPER QUADRANT REASON FOR VISIT: Male, 30 years old right upper quadrant pain. TECHNIQUE: Ultrasound evaluation of the right upper quadrant was performed with real-time and static vora-scale imaging. TECHNICAL QUALITY: Adequate. COMPARISON: Comparison is made with prior examination of 10/22/2019. FINDINGS: Liver: The liver measures 17.2 cm. There is normal echogenicity of the liver. The bile ducts are within normal limits. There is hepatic color flow. The direction of portal flow is hepatopetal. There is no demonstrated mass lesion. Gallbladder: Normal distended gallbladder. The gallbladder wall measures 1.8 mm. There is a negative sonographic Shea''s sign. There is no pericholecystic fluid. There are no gallstones. Common Bile Duct (C.B.D.): The common bile duct measures 2.5 mm. Pancreas: Normal size of the head, body and tail of the pancreas. There is normal echogenicity of the pancreas. There is no demonstrated pancreatic mass or cyst. Right Kidney: Normal size of the right kidney. The right kidney measures 11.8 cm x 6.1 cm x 4.6 cm. Normal renal cortex. The right cortex measures 1.4 cm. There is no demonstrated renal mass or cyst. There is no right hydronephrosis. US/Gallbladder IMPRESSION: Normal right upper quadrant ultrasound examination. Electronically Signed: Gino Murphy MD at 14:41 EST ,
[2021-03-20] MEDS: 0.9% Normal Saline 1,000 ML 1000 ML IV (13:48)
[2021-03-20] MEDS: Ondansetron 4 MG/2 ML Vial IV (13:48)
[2021-03-20 13:51] LABS: Absolute Lymphocyte Count 1.38 X10^3/uL (0.83-4.51); Absolute Neutrophil Count 6.2 X10^3/uL (2.0-7.7); Basophil# 0.04 X10^3/uL; Basophil% 0.5 % (0-1); Eosinophil# 0.04 X10^3/uL; Eosinophils% 0.5 % (0-5); Hematocrit 48.1 % (40-54); Hemoglobin 16.8 g/dL (13.0-16.5); Lymphocyte # 1.38 X10^3/ul (0.83-4.51); Lymphocyte % 16.7 % (19-41); Mean Corp Hgb Conc 34.9 g/dL (32-36); Mean Corpuscular Hgb 31.2 pg (27.0-32.0); Mean Corpuscular Volume 89.2 fL (80-94); Monocyte# 0.56 X10^3/uL; Monocyte% 6.8 % (0-10); NRBC Flagged by Analyzer 0 % (0-5); Neutrophil % 75.1 % (47-70); Platelet Count 253 K/mm3 (150-450); RBC Distribution Width CV 13.1 % (11.6-14.6); RBC Distribution Width SD 42.5 fl (35.1-43.9); Red Blood Count 5.39 M/mm3 (4.6-6.2); White Blood Count 8.3 K/mm3 (4.4-11.0)
[2021-03-20 14:05] LABS: BUN 12 mg/dL (7-18); Creatinine, Serum 0.87 mg/dL (0.70-1.30); Estimated Creatinine Clearance 131.03 ml/min; Glucose 96 mg/dL (74-106)
[2021-03-20 14:06] LABS: AST(SGOT) 17 U/L (15-37); Alanine Aminotransfer ALT/SGPT 27 U/L (16-61); Alkaline Phosphatase 60 U/L (45-117); Anion Gap 4 (5-15); BUN/Creat Ratio 13.8 RATIO (10-20); Calcium,Total 9.1 mg/dL (8.5-10.1); Chloride 105 mmol/L (98-107); EST Glomerular Filtration Rate 109 mL/min (>60); Est Glom Filt Rate - Afr Amer 131 mL/min (>60); Globulin 3.9 g/dL (2.2-4.2); Lipase 79 U/L (73-393); Protein, Total 7.9 g/dL (6.4-8.2); Sodium Level 140 mmol/L (136-145)
--- NOTE | 2021-03-20 14:15 | CASEMGMT ---
LINDA TAYLOR note: LINDA TAYLOR to room, patient currently out of department for imaging. Significant other present in room and states patient's PCP is in [place], [place] but he and she are both currently looking to switch to a local provider. [facility] Healthcare Provider Directory provided. Encouraged to review directory and contact provider of choice to establish care. Significant other denies further needs and expressed appreciation for resource. LINDA Talamantes CM
--- NOTE | 2021-03-20 15:24 | EX.ED.DYSGE1 ---
HPI History of Present Illness Chief Complaint: Nausea/Vomiting Informant: patient Narrative Narrative: Patient is a 30-year-old male with history of acid reflux and H. pylori infection x2 presenting with worsening abdominal pain, nausea and vomiting. Patient states has been vomiting the last 3 days. He used to be on stomach meds and thinks it was Nexium. He notes that he ate a cheddar bratwurst the other day and that is when he started having increased pain in his right upper quadrant and the vomiting started. He notes his stomach has been a little upset before that. He last threw up just prior to arrival. He has not eaten or drink anything today. States his vomit is a mixture of anything he tries to eat or clear. Denies any blood in his vomit or his stool. States his bowel movements either been normal or soft. Last saw Dr. Benitez about 2 years ago. Notes that his primary care doctor in [place] recently took him off his stomach medicines and attributes that to why he is having increased abdominal pain. Does not think he is ever seen a GI doctor. No other complaints at this time. No history of any abdominal surgeries. [facility] Medical History (Updated 03/20/21 @ 15:[address] Odessa Waldron, ) Abdominal pain Home Medications ondansetron 4 mg PO Q8H PRN PRN #10 tab 10/17/19 [Rx Last Taken Unknown] promethazine 25 mg PO Q6H PRN PRN #10 tab 10/17/19 [Rx Last Taken Unknown] cyclobenzaprine 10 mg PO TID PRN #15 tab 03/20/20 [Rx Last Taken Unknown] omeprazole 20 mg PO DAILY #30 cap 03/20/21 [Rx Last Taken Unknown] ondansetron 4 mg PO Q6H PRN #14 tab 03/20/21 [Rx Last Taken Unknown] Allergy/AdvReac Type Severity Reaction Status Date / Time famotidine [From Pepcid] Allergy Angioedema Verified 03/20/21 12:06 Penicillins AdvReac Swelling Verified 03/20/21 12:06 Family History Father Asthma Hypertension CAD (coronary artery disease) Cancer Seizures CVA (cerebral vascular accident) Surgical History Status post adenoidectomy Social History Smoking Status: Current some day smoker tobacco type: cigarettes alcohol intake: current alcohol intake frequency: a few times a month ROS ROS ED Constitutional Constitutional ED: Denies chills or fever(s) Eyes Eyes: Denies change in vision ENT ENT ED: Denies rhinorrhea or sore throat Cardiovascular Cardiovascular: Denies chest pain or palpitations Respiratory/Chest Respiratory/Chest: Denies cough or dyspnea Gastrointestinal Gastrointestinal: Reports abdominal pain, nausea and vomiting; Denies diarrhea Genitourinary Genitourinary ED: Denies dysuria Musculoskeletal Musculoskeletal: Denies arthralgias or myalgias Integumentary Denies rash Neurologic Neurologic: Denies headache(s) or weakness Psychiatric Psychiatric: Denies depression EXAM Physical Exam Const Vital Signs: 03/20/21 12:06 Temperature 96.2 F L Temperature Source Temporal Pulse Rate 82 Respiratory Rate 18 Blood Pressure 131/87 H Blood Pressure Mean 101 Pulse Ox 100 Oxygen Delivery Method Room Air Positive well nourished and well developed General Appearance ED: well developed HEENT Reports moist mucous membranes Negative for trauma Eyes PERRL and EOMs intact bilaterally Neck supple General: Negative for tenderness Chest Wall inspection of chest normal Resp normal respiratory effort Cardio regular rate and regular rhythm GI normal to inspection, nondistended, normoactive bowel sounds Palpation: soft and tender epigastric; Negative for guarding Neuro oriented x3 Sensorium / Orientation: alert Motor Exam: Negative for general weakness Psych mental status grossly normal Skin no rashes or lesions noted and no wounds MDM MDM MDM Narrative Medical decision making narrative: Patient is evaluated for recurrent/worsening abdominal pain as well as nausea and vomiting. He appears nontoxic and no acute distress. Patient is given IV Zofran, fluids and pantoprazole and on reevaluation has improvement of his symptoms. CBC, CMP and lipase are normal. Right upper quadrant ultrasound obtained which is also normal. Patient given referral for GI per his request. He is also given a GI cocktail in the ER. He will be restarted on PPI therapy and given a prescription for Zofran. He is agreeable to this plan of care. He is given return precautions. Lab Data Attestation: I reviewed the patient's lab results. Labs: Laboratory Results - last 24 hr 03/20/21 03/20/21 13:40 13:40 WBC 8.3 RBC 5.39 Hgb 16.8 H Hct 48.1 MCV 89.2 MCH 31.2 MCHC 34.9 RDW Std Deviation 42.5 RDW Coeff of Joshua 13.1 Plt Count 253 MPV 11.0 Immature Gran % (Auto) 0.400 Neut % (Auto) 75.1 H Lymph % (Auto) 16.7 L [place] % (Auto) 6.8 Eos % (Auto) 0.5 Baso % (Auto) 0.5 Absolute Neuts (auto) 6.2 Absolute Lymphs (auto) 1.38 Nucleated RBC % 0 Sodium 140 Potassium 4.0 Chloride 105 Carbon Dioxide 31.0 Anion Gap 4 L BUN 12 Creatinine 0.87 Estim Creat Clear Calc 131.03 Est GFR (MDRD) Af Amer 131 Est GFR (MDRD) Non-Af 109 BUN/Creatinine Ratio 13.8 Glucose 96 Calcium 9.1 Total Bilirubin 0.30 AST 17 ALT 27 Alkaline Phosphatase 60 Total Protein 7.9 Albumin 4.0 Globulin 3.9 Albumin/Globulin Ratio 1.0 Lipase 79 Radiography Diagnostic Testing: Clinical Impression(s) from Imaging Studies Gallbladder Ultrasound 03/20/21 13:33 IMPRESSION: Normal right upper quadrant ultrasound examination. Electronically Signed: Gino Murphy MD at 14:41 EST Reading Location ID and State: [address] [place] [address] , Service support , Discharge Plan Triage Chief Complaint: Nausea/Vomiting ED Provider: Odessa Waldron Dx/Rx/DC Orders Clinical Impression: Epigastric abdominal pain, Nausea & vomiting Instructions: ED Vomiting (Adult), ED Epigastric Pain Uncertain Cause Prescriptions: New omeprazole [omeprazole] 20 MG capsule 20 mg PO DAILY Qty: 30 RF: 0 ondansetron 4 mg tablet,disintegrating 4 mg PO Q6H PRN (Reason: nausea and vomiting) Qty: 14 RF: 0 No Action ondansetron 4 MG tablet 4 mg PO Q8H PRN PRN (Reason: Nausea) Qty: 10 RF: 0 promethazine 25 MG tablet 25 mg PO Q6H PRN PRN (Reason: Nausea) Qty: 10 RF: 0 cyclobenzaprine 10 MG tablet 10 mg PO TID PRN (Reason: Muscle Spasm) Qty: 15 RF: 0 Primary Care Provider: Care Physician,No Primary Referrals: Friend,Santy, DO [STAFF PHYSICIAN] - As Needed Care Physician,No Primary [Primary Care Provider] - Disposition Disposition: Home, Self Care
[2021-03-20] MEDS: Mag Hydrox/Al Hydrox/Simeth 30 ML UDC PO (15:27)
[2021-03-20 15:42] VITALS: BP 138/74; PULSE 74; RESP 16; O2SAT 99
== END 2021-03-20 15:43 | disposition home or self-care (01) ==
PROVIDERS: Emergency Provider Emergency Medicine; Visit Provider Emergency Medicine
DX: R10.13 Epigastric pain (principal); R11.2 Nausea with vomiting, unspecified; F17.210 Nicotine dependence, cigarettes, uncomplicated
CPT/HCPCS: 76705; 80053; 83690; 85025; 96365; 96375; 99283; J7030; J2405; J3490

== ENCOUNTER 2021-04-04 15:01 | Emergency (ER) | payer MEDICAID, SELFPAY ==
[2021-04-04 15:02] VITALS: BP 121/90; PULSE 89; RESP 20; TEMP 36.1; O2SAT 100; BMI 21.7
--- NOTE | 2021-04-04 15:27 | RAD_ITS ---
STUDY: X-RAY - RIGHT FOOT CLINICAL: Male, 30 years old. Injury/Pain TECHNIQUE: 3 view(s) of the foot. COMPARISON: None. FINDINGS: Normal talus, calcaneus, and tarsal bones. Normal visualized subtalar, talonavicular, calcaneocuboid, tarsal and tarsometatarsal articulations. Normal metatarsi. Normal metatarsophalangeal joint of the great toe. Normal tibial and fibular sesamoid bones. Normal interphalangeal joint of the great toe. Normal phalanges of the great toe. Normal second through fifth metatarsophalangeal joints. Normal interphalangeal joints and phalanges of the lesser toes. The soft tissue structures are unremarkable. RAD/Foot min 3 Views IMPRESSION: Normal x-ray examination of the foot. Electronically Signed: Gino Murphy MD at 15:44 EST ,
--- NOTE | 2021-04-04 16:37 | EDS_ITS ---
HPI History of Present Illness HPI Narrative: Patient presents with injury to his right fifth toe that occurred last night. Patient states he accidentally kicked something and felt pain in his right fifth toe. Patient states his pain is sharp. Patient states the pain is worse with weightbearing. Patient admits to some numbness and tingling in his fifth toe. Patient denies any weakness. Patient denies any other injuries. Chief Complaint: Lower Extremity Injury Informant: patient Occured/Mechanism Mechanism/Context: Yes blunt trauma Onset/Context/Timing Onset: Yesterday Context: Sudden Onset Timing: Continuous Quality of Pain: Sharp Worsened by: Weightbearing and ambulation Relieved by: Nothing Associated Symptoms Associated Symptoms: Positive for Parasthesia; Negative for Weakness and Loss of Funtion PFSH PFS Medical History Abdominal pain KENNETH (obstructive sleep apnea) Home Medications ondansetron 4 mg PO Q8H PRN PRN #10 tab 10/17/19 [Rx Last Taken Unknown] promethazine 25 mg PO Q6H PRN PRN #10 tab 10/17/19 [Rx Last Taken Unknown] cyclobenzaprine 10 mg PO TID PRN #15 tab 03/20/20 [Rx Last Taken Unknown] omeprazole 20 mg PO DAILY #30 cap 03/20/21 [Rx Last Taken Unknown] ondansetron 4 mg PO Q6H PRN #14 tab 03/20/21 [Rx Last Taken Unknown] Allergy/AdvReac Type Severity Reaction Status Date / Time famotidine [From Pepcid] Allergy Angioedema Verified 04/04/21 15:04 Penicillins Allergy Swelling Verified 04/04/21 15:04 Family History Father Asthma Hypertension CAD (coronary artery disease) Cancer Seizures CVA (cerebral vascular accident) Surgical History Status post adenoidectomy Social History Smoking Status: Current some day smoker tobacco type: cigarettes alcohol intake: current alcohol intake frequency: a few times a month ROS ROS ED Constitutional Constitutional ED: Denies chills or fever(s) Eyes Eyes: Denies blurry vision or change in vision ENT ENT ED: Denies rhinorrhea or sore throat Cardiovascular Cardiovascular: Denies chest pain or palpitations Respiratory/Chest Respiratory/Chest: Denies cough or dyspnea Gastrointestinal Gastrointestinal: Denies nausea or vomiting Genitourinary Genitourinary ED: Denies dysuria or hematuria Musculoskeletal Musculoskeletal: Denies back pain or neck pain Integumentary Denies abscess or rash Neurologic Neurologic: Denies headache(s) or weakness Allergic/Immunologic Allergic/Immunologic ED: Denies mouth swelling or urticaria EXAM Physical Exam Const Vital Signs: 04/04/21 15:02 Temperature 97.0 F L Temperature Source Temporal Pulse Rate 89 Respiratory Rate 20 H Blood Pressure 121/90 H Blood Pressure Mean 100 Pulse Ox 100 Oxygen Delivery Method Room Air Positive well nourished and well developed General Appearance ED: well developed and NAD HEENT Reports moist mucous membranes Neck full ROM Extremity Extremity Narrative: There is tenderness, edema, and ecchymosis over the right fifth toe. There is no obvious deformity. There is no bony crepitance or step- off. Capillary refill is less than 2 seconds in all digits. Range of motion was limited in all motions of the toe secondary to pain. Sensation was intact to light touch in all digits. Neuro oriented x3, CN's II-XII intact bilaterally, moves all extremities and no sensory deficits noted Sensorium / Orientation: alert Motor Exam: strength 5/5 throughout Psych mental status grossly normal MDM MDM MDM Narrative Medical decision making narrative: X-rays of the right foot were obtained. There are 3 views. On my interpretation, there is no acute fracture. There is no dislocation. There is no soft tissue swelling. Radiologist also interpreted the x-rays and agrees. Patient was given a postop shoe. Patient was instructed to ice and elevate the right foot. Patient was instructed to take Tylenol or ibuprofen as needed for pain. Patient was instructed to follow-up with his primary care physician in 5 to 7 days. Patient understood and was agreeable with the plan. All questions were answered. Radiography Diagnostic Testing: Clinical Impression(s) from Imaging Studies Foot X-Ray 04/04/21 15:27 IMPRESSION: Normal x-ray examination of the foot. Electronically Signed: Gino Murphy MD at 15:44 EST , Discharge Plan Triage Chief Complaint: Lower Extremity Injury ED Provider: Berto Lobato Dx/Rx/DC Orders Clinical Impression: Contusion of toe of right foot Instructions: ED Foot Contusion Prescriptions: No Action ondansetron 4 MG tablet 4 mg PO Q8H PRN PRN (Reason: Nausea) Qty: 10 RF: 0 promethazine 25 MG tablet 25 mg PO Q6H PRN PRN (Reason: Nausea) Qty: 10 RF: 0 cyclobenzaprine 10 MG tablet 10 mg PO TID PRN (Reason: Muscle Spasm) Qty: 15 RF: 0 omeprazole [omeprazole] 20 MG capsule 20 mg PO DAILY Qty: 30 RF: 0 ondansetron 4 mg tablet,disintegrating 4 mg PO Q6H PRN (Reason: nausea and vomiting) Qty: 14 RF: 0 Referrals: HAKAN REYNA [Other] - 5-7 Days Disposition Disposition: Home, Self Care
== END 2021-04-04 16:59 | disposition home or self-care (01) ==
PROVIDERS: Emergency Provider Emergency Medicine; Visit Provider Emergency Medicine
DX: S90.121A Contusion of right lesser toe(s) without damage to nail, initial encounter (principal); F17.210 Nicotine dependence, cigarettes, uncomplicated; G47.33 Obstructive sleep apnea (adult) (pediatric); X58.XXXA Exposure to other specified factors, initial encounter
CPT/HCPCS: 73630; 99282

== ENCOUNTER 2021-04-07 00:51 | Emergency (ER) | payer MEDICAID, SELFPAY ==
[2021-04-07 00:52] VITALS: BP 149/102; PULSE 86; RESP 18; TEMP 35.8; O2SAT 97; BMI 22.5
--- NOTE | 2021-04-07 00:58 | EKG12_ITS ---
Test Reason : CP Blood Pressure : / mmHG Vent. Rate : 083 BPM Atrial Rate : 083 BPM P-R Int : 134 ms QRS Dur : 088 ms QT Int : 362 ms P-R-T Axes : 059 047 052 degrees QTc Int : 425 ms Normal sinus rhythm Septal infarct , age undetermined Abnormal ECG Confirmed by MEGHAN VILLAR, MARGO ([id number]), assistant production editor MARAL BUSTAMANTE ([id number]) on 04/09/2021 12:17:02 PM Referred By: NANO Confirmed By:MARGO CHRISTIANSON MD
[2021-04-07 01:07] LABS: Absolute Lymphocyte Count 2.96 X10^3/uL (0.83-4.51); Absolute Neutrophil Count 6.3 X10^3/uL (2.0-7.7); Basophil# 0.04 X10^3/uL; Basophil% 0.4 % (0-1); Eosinophil# 0.13 X10^3/uL; Eosinophils% 1.3 % (0-5); Hematocrit 44.5 % (40-54); Hemoglobin 16.1 g/dL (13.0-16.5); Lymphocyte # 2.96 X10^3/ul (0.83-4.51); Mean Corp Hgb Conc 36.2 g/dL (32-36); Mean Corpuscular Volume 85.6 fL (80-94); Mean Platelet Vol. 11.3 fl (6.2-12.0); Monocyte# 0.74 X10^3/uL; Monocyte% 7.3 % (0-10); NRBC Flagged by Analyzer 0 % (0-5); Neutrophil # 6.29 X10^3/uL (2.7-7.7); Neutrophil % 61.7 % (47-70); Platelet Count 245 K/mm3 (150-450); RBC Distribution Width CV 12.6 % (11.6-14.6); White Blood Count 10.2 K/mm3 (4.4-11.0)
--- NOTE | 2021-04-07 01:08 | RAD_ITS ---
STUDY: X-RAY CHEST REASON FOR EXAM: Male, 30 years old. Chest pain TECHNIQUE: Single AP portable view of the chest. COMPARISON: 11/10/2018 FINDINGS: The lungs are clear and expanded. There is no demonstrated pleural abnormality. Normal size heart. Normal mediastinum and anam. Normal visualized pulmonary arteries. Normal visualized aortic arch and descending thoracic aorta. Normal visualized thoracic spine. Normal visualized ribs, clavicles, and shoulders. There is no demonstrated abnormality of the visualized soft tissue structures of the upper abdomen. RAD/Chest 1 View (Portable) IMPRESSION: Normal x-ray examination of the chest. Electronically Signed: Erik Dubon MD at 1:27 [facility] ,
[2021-04-07 01:27] LABS: Anion Gap 3 (5-15); BUN 13 mg/dL (7-18); BUN/Creat Ratio 13.1 RATIO (10-20); Calcium,Total 9.6 mg/dL (8.5-10.1); Chloride 104 mmol/L (98-107); Creatinine, Serum 0.99 mg/dL (0.70-1.30); EST Glomerular Filtration Rate 94 mL/min (>60); Est Glom Filt Rate - Afr Amer 113 mL/min (>60); Estimated Creatinine Clearance 112.09 ml/min; Glucose 92 mg/dL (74-106); Potassium 3.4 mmol/L (3.5-5.1); Sodium Level 138 mmol/L (136-145); Troponin-I HS 10 pg/mL (3.0-78.0)
[2021-04-07 01:59] VITALS: BP 151/90; PULSE 96; RESP 20; O2SAT 97
[2021-04-07] MEDS: Mag Hydrox/Al Hydrox/Simeth 30 ML UDC PO (02:01)
[2021-04-07 02:12] LABS: Lipase 54 U/L (73-393)
[2021-04-07 02:16] LABS: AST(SGOT) 21 U/L (15-37); Alanine Aminotransfer ALT/SGPT 24 U/L (16-61); Alkaline Phosphatase 59 U/L (45-117); Bilirubin, Direct 0.13 mg/dL (0.00-0.30); Globulin 3.6 g/dL (2.2-4.2); Protein, Total 7.6 g/dL (6.4-8.2)
[2021-04-07 03:08] VITALS: RESP 16
--- NOTE | 2021-04-07 03:13 | EDS_ITS ---
HPI History of Present Illness Chief Complaint: Chest Pain Informant: patient and spouse/S.O. Narrative Narrative: Patient is a 30-year-old male with history of acid reflux, H. pylori infection and tobacco use presenting with worsening chest discomfort and pressure. Patient states he woke up at 7 AM with chest pressure. Is been constant throughout the day. It radiates up and down his chest and into his epigastric region. He has associated nausea but no vomiting. He has had dry heaves. Denies any difficulty breathing. Denies any swelling of his legs. Denies a history of DVT or PE. Patient recently had a stress test and pulmonary function test at [facility] through his primary care doctor on 03/28/2021. Stress test was normal and pulmonary function test showed response to bronchodilators but was otherwise normal. The results were pulled up on the patient's phone and I was able to review them. Patient was actually evaluated by myself a little over 2 weeks ago for similar complaint. At that time he had a negative work-up and was given a prescription for omeprazole and Zofran. He was encouraged to follow-up with either GI or Dr. Vick whom he is seen in the past. His states that the medicines made his discomfort worse and they lost the paperwork and his phone has been acting up as of not been able to schedule any follow-up appointments. No black or blood reported in the stool. No change in bowel habits. No other complaints at this time. [facility] Medical History Abdominal pain KENNETH (obstructive sleep apnea) Home Medications albuterol sulfate 2 puff INHALATION PRN PRN 04/07/21 [History Last Taken Unknown] fluticasone propionate [Flovent Diskus] 2 inh INHALATION DAILY 04/07/21 [History Last Taken Unknown] Allergy/AdvReac Type Severity Reaction Status Date / Time famotidine [From Pepcid] Allergy Angioedema Verified 04/07/21 00:54 Penicillins Allergy Swelling Verified 04/07/21 00:54 Family History Father Asthma Hypertension CAD (coronary artery disease) Cancer Seizures CVA (cerebral vascular accident) Surgical History Status post adenoidectomy Social History Smoking Status: Current some day smoker tobacco type: cigarettes alcohol intake: current alcohol intake frequency: a few times a month ROS ROS ED Constitutional Constitutional ED: Denies chills or fever(s) Eyes Eyes: Denies change in vision ENT ENT ED: Denies rhinorrhea or sore throat Cardiovascular Cardiovascular: Reports chest pain; Denies palpitations or racing heartbeat Respiratory/Chest Respiratory/Chest: Denies cough or dyspnea Gastrointestinal Gastrointestinal: Reports abdominal pain and nausea; Denies diarrhea, melena or vomiting Musculoskeletal Musculoskeletal: Denies arthralgias or myalgias Integumentary Denies rash Neurologic Neurologic: Denies headache(s) or weakness EXAM Physical Exam Const Vital Signs: 04/07/21 00:52 04/07/21 00:56 04/07/21 01:03 Temperature 96.5 F L Temperature Source Temporal Pulse Rate 86 Respiratory Rate 18 Respiratory Pattern Normal Blood Pressure 149/102 H Blood Pressure Mean 117 Pulse Ox 97 Oxygen Delivery Method Room Air Room Air 04/07/21 01:59 04/07/21 03:08 Temperature Temperature Source Pulse Rate 96 Respiratory Rate 20 H 16 Respiratory Pattern Blood Pressure 151/90 H Blood Pressure Mean 110 Pulse Ox 97 Oxygen Delivery Method Room Air Positive well nourished and well developed General Appearance ED: well developed and NAD HEENT Reports moist mucous membranes Negative for tenderness Eyes PERRL and EOMs intact bilaterally Neck supple and no JVD Chest Wall inspection of chest normal Chest Narrative: Patient has significant tenderness palpation over the lower sternum. No deformity of the chest wall noted. No chest wall crepitus. Resp normal respiratory effort and clear to auscultation bilaterally Cardio regular rate, regular rhythm and no murmurs Rate: other Other Details: 2+ bilateral DP pulses GI normal to inspection, nondistended, normoactive bowel sounds Inspection: Negative for abdominal distention Palpation: soft and tender epigastric; Negative for guarding Extremity normal to inspection General Extremety ED: Negative for edema or tenderness General Extremity: Negative for edema Neuro oriented x3 and CN's II-XII intact bilaterally Sensorium / Orientation: alert Psych mental status grossly normal Skin no rashes or lesions noted MDM MDM MDM Narrative Medical decision making narrative: Patient evaluated for constant chest pressure since this morning. Patient's been seen multiple times over the years for similar complaints. On exam he does have reproducible chest wall tenderness. He is given GI cocktail and Tylenol in the ER for symptom control. Cardiac work-up including chest x-ray, high since he troponin and EKG are normal. Liver enzymes, lipase and BMP are also normal. He has a mildly low potassium of 3.4. I do not think that has anything to do with his presentation today. Patient counseled that the cause of symptoms is not clear however I do not think this is ACS or more serious pathology. Especially as he has had a negative stress test earlier this month. Patient is PE RC negative. Do not suspect PE as a cause of his chest discomfort. He is encouraged heavily to follow-up with either GI or Dr. Vick, whom he seen in the past for his H. pylori. Lab Data Attestation: I reviewed the patient's lab results. Labs: Laboratory Results - last 24 hr 04/07/21 04/07/21 04/07/21 01:00 01:00 01:00 WBC 10.2 RBC 5.20 Hgb 16.1 Hct 44.5 MCV 85.6 MCH 31.0 MCHC 36.2 H RDW Std Deviation 39.0 RDW Coeff of Joshua 12.6 Plt Count 245 MPV 11.3 Immature Gran % (Auto) 0.300 Neut % (Auto) 61.7 Lymph % (Auto) 29.0 Sheridan % (Auto) 7.3 Eos % (Auto) 1.3 Baso % (Auto) 0.4 Absolute Neuts (auto) 6.3 Absolute Lymphs (auto) 2.96 Nucleated RBC % 0 Sodium 138 Potassium 3.4 L Chloride 104 Carbon Dioxide 31.0 Anion Gap 3 L BUN 13 Creatinine 0.99 Estim Creat Clear Calc 112.09 Est GFR (MDRD) Af Amer 113 Est GFR (MDRD) Non-Af 94 BUN/Creatinine Ratio 13.1 Glucose 92 Calcium 9.6 Total Bilirubin 0.50 Direct Bilirubin 0.13 AST 21 ALT 24 Alkaline Phosphatase 59 Troponin I High Sens 10 Total Protein 7.6 Albumin 4.0 Globulin 3.6 Lipase 04/07/21 01:00 WBC RBC Hgb Hct MCV MCH MCHC RDW Std Deviation RDW Coeff of Joshua Plt Count MPV Immature Gran % (Auto) Neut % (Auto) Lymph % (Auto) Sheridan % (Auto) Eos % (Auto) Baso % (Auto) Absolute Neuts (auto) Absolute Lymphs (auto) Nucleated RBC % Sodium Potassium Chloride Carbon Dioxide Anion Gap BUN Creatinine Estim Creat Clear Calc Est GFR (MDRD) Af Amer Est GFR (MDRD) Non-Af BUN/Creatinine Ratio Glucose Calcium Total Bilirubin Direct Bilirubin AST ALT Alkaline Phosphatase Troponin I High Sens Total Protein Albumin Globulin Lipase 54 L Radiography Chest X-Ray - ED: 1 View, Read by ED Physician, Read by Radiologist, Normal and No Acute Disease Diagnostic Testing: Clinical Impression(s) from Imaging Studies Chest X-Ray 04/07/21 01:08 IMPRESSION: Normal x-ray examination of the chest. Electronically Signed: Erik Dubon MD at 1:27 EST , Rhythm Strip Rhythm Strip: Sinus Rhythm Rate: 83 Ectopy: None EKG Initial EKG: Attestation: I personally reviewed and interpreted this EKG as follows: Interpretation: Sinus Rhythm Comments: Normal sinus rhythm rate of 83 Normal axis Normal intervals Normal ST segments Compared to prior EKG on 11/10/2018, no acute changes Discharge Plan Triage Chief Complaint: Chest Pain ED Provider: Odessa Waldron Dx/Rx/DC Orders Clinical Impression: Epigastric abdominal pain, Chest pressure Instructions: ED Chest Pain, Uncertain Cause, ED Epigastric Pain Uncertain Cause Prescriptions: No Action Flovent Diskus 50 mcg/actuation blister with device 2 inh INHALATION DAILY RF: 0 albuterol sulfate 90 mcg/actuation HFA aerosol inhaler 2 puff INHALATION PRN PRN (Reason: Shortness Of Breath) RF: 0 Referrals: HAKAN REYNA [Other] Dmitri Vick MD [STAFF PHYSICIAN] - Friend,DO Santy [STAFF PHYSICIAN] - Activity Restrictions/Additional Instructions: Take Tylenol as needed for pain. Please make sure you follow-up with either GI or your surgeon for further evaluation of this pain as I suspect that it could be from your stomach or your GI tract. Disposition Disposition: Home, Self Care Discharge Date/Time: 04/07/21 03:25
[2021-04-07] MEDS: Acetaminophen 500 MG Tablet PO (03:20)
[2021-04-07 03:24] VITALS: PULSE 87; RESP 18; O2SAT 96
== END 2021-04-07 03:25 | disposition home or self-care (01) ==
PROVIDERS: Emergency Provider Emergency Medicine; Visit Provider Emergency Medicine
DX: R10.13 Epigastric pain (principal); R07.89 Other chest pain; G47.33 Obstructive sleep apnea (adult) (pediatric); Z79.899 Other long term (current) drug therapy
CPT/HCPCS: 71045; 80048; 80076; 83690; 84484; 85025; 93005; 99284; A4216

== ENCOUNTER 2021-04-30 00:33 | Emergency (ER) | payer MEDICAID, SELFPAY ==
[2021-04-30 00:34] VITALS: BP 146/96; PULSE 86; RESP 16; TEMP 36.7; O2SAT 98; BMI 23.3
[2021-04-30 00:37] VITALS: BP 146/96; PULSE 86; RESP 16; TEMP 36.7; O2SAT 98
--- NOTE | 2021-04-30 00:47 | RAD_ITS ---
STUDY: X-RAY - RIGHT ELBOW REASON FOR EXAM: Male, 30 years old. fall TECHNIQUE: view(s) of the elbow. COMPARISON: None. FINDINGS: Normal visualized humerus, radius and ulna. Normal radiocapitellar and ulnotrochlear articulations. The soft tissue structures are unremarkable. RAD/Elbow min 3 Views IMPRESSION: Normal x-ray examination of the elbow. Electronically Signed: Brad Verma MD at 2:28 EDT ,
--- NOTE | 2021-04-30 00:47 | RAD_ITS ---
STUDY: X-RAY - RIGHT SHOULDER REASON FOR EXAM: Male, 30 years old. fall TECHNIQUE: view(s) of the shoulder. COMPARISON: None. FINDINGS: Normal glenohumeral articulation. Normal acromioclavicular joint. Normal acromion. Normal humeral head and visualized proximal humerus. The soft tissue structures are unremarkable. Normal visualized pulmonary apex. RAD/Shoulder min 2 Views IMPRESSION: Normal x-ray examination of the shoulder. Electronically Signed: Brad Verma MD at 2:30 EDT ,
--- NOTE | 2021-04-30 00:47 | RAD_ITS ---
STUDY: X-RAY - RIGHT HUMERUS REASON FOR EXAM: Male, 30 years old. fall TECHNIQUE: 2 view(s) of the humerus. COMPARISON: None. FINDINGS: Normal visualized humerus. There is no demonstrated fracture or osseous destructive process. There is no demonstrated soft tissue abnormality. RAD/Humerus min 2 Views IMPRESSION: Normal x-ray examination of the humerus. Electronically Signed: Brad Verma MD at 2:29 EDT ,
--- NOTE | 2021-04-30 01:39 | EX.ED.UPPERE ---
HPI History of Present Illness Chief Complaint: Upper Extremity Injury Informant: patient Narrative Narrative: Patient is a 30-year-old male presenting with right elbow pain. He is left-hand dominant. Yesterday he tripped while holding his daughter and car seat carrier and fell landing on his right elbow. He has had pain and swelling since then. Is worse when he extends or supinates his arm. He has a lot of throbbing. Is not take anything for pain. Denies any numbness or tingling. States sometimes of the pain will radiate up to his shoulder. Did not hit his head. Denies any other injuries. No other complaints at this time. [facility] Medical History Abdominal pain KENNETH (obstructive sleep apnea) Home Medications albuterol sulfate 2 puff INHALATION PRN PRN 04/07/21 [History Last Taken Unknown] fluticasone propionate [Flovent Diskus] 2 inh INHALATION DAILY 04/07/21 [History Last Taken Unknown] Allergy/AdvReac Type Severity Reaction Status Date / Time famotidine [From Pepcid] Allergy Angioedema Verified 04/07/21 00:54 Penicillins Allergy Swelling Verified 04/07/21 00:54 Family History Father Asthma Hypertension CAD (coronary artery disease) Cancer Seizures CVA (cerebral vascular accident) Surgical History Status post adenoidectomy Social History Smoking Status: Current some day smoker tobacco type: cigarettes alcohol intake: current alcohol intake frequency: a few times a month ROS ROS ED Constitutional Constitutional ED: Denies chills or fever(s) Eyes Eyes: Denies change in vision Respiratory/Chest Respiratory/Chest: Denies cough or dyspnea Gastrointestinal Gastrointestinal: Denies nausea or vomiting Musculoskeletal Musculoskeletal: Reports other Details: right elbow pain and swelling ; Denies myalgias Integumentary Denies Abrasions or rash Neurologic Neurologic: Denies headache(s), paresthesias or weakness Psychiatric Psychiatric: Denies anxiety or depression EXAM Physical Exam Const Vital Signs: 04/30/21 00:34 04/30/21 00:37 Temperature 98.0 F 98.0 F Temperature Source Temporal Oral Pulse Rate 86 86 Respiratory Rate 16 16 Blood Pressure 146/96 H 146/96 H Blood Pressure Mean 112 112 Pulse Ox 98 98 Oxygen Delivery Method Room Air Room Air Positive well nourished and well developed General Appearance ED: well developed HEENT normocephalic and atraumatic Eyes EOMs intact bilaterally Neck full ROM and supple Chest Wall inspection of chest normal Resp normal respiratory effort Cardio regular rate and regular rhythm Cardio Narrative: 2+ right radial pulse Extremity Extremity Narrative: Decreased range of motion especially with extension of the elbow and pronation of the forearm. Normal range of motion and strength of the hand and shoulder. Patient does have of diffuse tenderness localized around his olecranon on the right. Small amount of swelling over the olecranon bursa. Neuro oriented x3, no focal motor deficits and no sensory deficits noted Sensorium / Orientation: alert Motor Exam: strength 5/5 throughout and muscle tone normal throughout Psych mental status grossly normal Skin Lesions: no lesions Rashes: no rashes MDM MDM MDM Narrative Medical decision making narrative: Patient evaluated for 2 days of right elbow pain. He does have some associated swelling and decreased range of motion. Did not take any for pain prior to arrival. Is given dose of Motrin. Protocol x-rays obtained. No signs of acute fracture and no posterior fat pad consistent with an occult fracture. Differential does include localized contusion, traumatic bursitis or less likely occult fracture. Patient is given a sling for comfort. Counseled on rice therapy. Encouraged follow-up with his primary care doctor. He is otherwise neurovascularly intact and stable for outpatient follow-up. Discharge Plan Triage Chief Complaint: Upper Extremity Injury ED Provider: Odessa Waldron Dx/Rx/DC Orders Clinical Impression: Contusion of elbow, right Instructions: ED Contusion, Elbow Prescriptions: No Action Flovent Diskus 50 mcg/actuation blister with device 2 inh INHALATION DAILY RF: 0 albuterol sulfate 90 mcg/actuation HFA aerosol inhaler 2 puff INHALATION PRN PRN (Reason: Shortness Of Breath) RF: 0 Referrals: HAKAN REYNA [Other] Activity Restrictions/Additional Instructions: Take Tylenol for pain. You been given a sling for comfort. Make sure you take your arm out of the sling and move your elbow around multiple times a day to help prevent it from freezing up. Take Tylenol as needed for pain. If you continue to have pain/swelling please get a repeat x-ray in 7 to 10 days as you could have was called an occult fracture (a small fracture that was not visualized today on x-ray). Disposition Disposition: Home, Self Care Discharge Date/Time: 04/30/21 03:29
== END 2021-04-30 03:29 | disposition home or self-care (01) ==
PROVIDERS: Emergency Provider Emergency Medicine; Visit Provider Emergency Medicine
DX: S50.01XA Contusion of right elbow, initial encounter (principal); F17.210 Nicotine dependence, cigarettes, uncomplicated; G47.33 Obstructive sleep apnea (adult) (pediatric); W19.XXXA Unspecified fall, initial encounter; Z79.899 Other long term (current) drug therapy
CPT/HCPCS: 73030; 73060; 73080; 99283

== ENCOUNTER 2021-08-15 03:46 | Emergency (ER) | payer MEDICAID, SELFPAY ==
[2021-08-15 03:48] VITALS: BP 129/87; PULSE 76; RESP 16; TEMP 36.6; O2SAT 98; BMI 23.0
--- NOTE | 2021-08-15 04:04 | EKG12_ITS ---
Test Reason : CP Blood Pressure : / mmHG Vent. Rate : 075 BPM Atrial Rate : 075 BPM P-R Int : 130 ms QRS Dur : 082 ms QT Int : 372 ms P-R-T Axes : 056 035 050 degrees QTc Int : 415 ms Normal sinus rhythm Normal ECG Confirmed by PABLITO VILLAR, YADIRA ([id number]), managing editor MARAL BUSTAMANTE ([id number]) on 08/16/2021 9:09:37 AM Referred By: PL Confirmed By:YADIRA KENNEY MD
--- NOTE | 2021-08-15 04:06 | EX.ED.DYSGE1 ---
HPI History of Present Illness Chief Complaint: Chest Pain Informant: patient Narrative Narrative: Patient presents with right upper quadrant pain. He states his knot in his chest is in his abdomen. He states he gets this about every 2 or 3 months. It tends to occur after eating a cheeseburger or spicy foods. He did eat some spicy chips last night. He gets nauseated but he does not vomit. No change in bowel habits. He is not short of breath. He has had this evaluated before and has had ultrasounds that I reviewed. He has no fevers or chills. He has had no prior abdominal surgery. He does have a history of H. pylori. He has an allergy to Pepcid but has not tried Nexium or Prilosec. PFSH [facility] Medical History Abdominal pain KENNETH (obstructive sleep apnea) Home Medications esomeprazole magnesium 20 mg capsule,delayed release (Nexium) 20 mg PO DAILY #30 caps 08/15/21 [Rx Last Taken Unknown] ondansetron 4 mg disintegrating tablet 4 mg PO Q8H PRN nausea and vomiting #10 tabs 08/15/21 [Rx Last Taken Unknown] Allergy/AdvReac Type Severity Reaction Status Date / Time famotidine [From Pepcid] Allergy Angioedema Verified 04/07/21 00:54 Penicillins Allergy Swelling Verified 04/07/21 00:54 Family History Father Asthma Hypertension CAD (coronary artery disease) Cancer Seizures CVA (cerebral vascular accident) Surgical History Status post adenoidectomy Social History Smoking Status: Current some day smoker tobacco type: cigarettes alcohol intake: current alcohol intake frequency: a few times a month ROS [facility] ED Constitutional Constitutional ED: Denies chills, fever(s), subjective or weight loss ENT ENT ED: Denies rhinorrhea or sore throat Cardiovascular Cardiovascular: Denies chest pain, palpitations or racing heartbeat Respiratory/Chest Respiratory/Chest: Denies cough or dyspnea Gastrointestinal Gastrointestinal: Reports abdominal pain and nausea; Denies constipation, diarrhea, melena or vomiting Genitourinary Genitourinary ED: Denies dysuria or hematuria Musculoskeletal Musculoskeletal: Reports other Details: No radiation to his back. ; Denies back pain Integumentary Denies rash Neurologic Neurologic: Denies paresthesias or weakness Psychiatric Psychiatric: Reports anxiety Endocrine Endocrinology: Denies polydipsia or polyuria Hematologic/Lymphatic Hematologic/Lymphatic: Denies easy bleeding or easy bruising Allergic/Immunologic Allergic/Immunologic ED: Denies urticaria EXAM Physical Exam Const Vital Signs: 08/15/21 03:48 08/15/21 03:54 Temperature 97.8 F Temperature Source Axillary Pulse Rate 76 Respiratory Rate 16 Respiratory Effort Normal Blood Pressure 129/87 H Blood Pressure Mean 101 Pulse Ox 98 Oxygen Delivery Method Room Air Positive well nourished General Appearance ED: NAD HEENT Reports moist mucous membranes Eyes General Eye ED: Negative for pale conjunctiva or scleral icterus Chest Wall inspection of chest normal and palpation of chest normal Resp normal respiratory effort and clear to auscultation bilaterally Auscultation: Negative for rales, rhonchi, wheezes or diminished lung sounds Cardio regular rate, regular rhythm and no murmurs Rhythm: Negative for abnormal rhythm GI normal to inspection, nondistended, normoactive bowel sounds GI Narrative: Patient has minimal tenderness right upper quadrant. Really not at the epigastric area or anywhere else. No CVA tenderness. Back/Spine no CVA tenderness Extremity normal to inspection General Extremety ED: Negative for edema or tenderness General Extremity: Negative for edema Neuro oriented x3 Sensorium / Orientation: alert Psych mental status grossly normal Skin no rashes or lesions noted Skin Narrative: No vesicles. MDM MDM MDM Narrative Medical decision making narrative: Patient's blood work shows normal CBC including white count platelets and hemoglobin. Electrolytes and liver function test are normal. Lipase is normal. EKG no acute. Patient has had the symptoms several times. It occurs with greasy foods or spicy foods. He has had 2 prior ultrasounds that showed no stones. Symptoms improved. I do not think he needs to get another ultrasound acutely with improving symptoms and normal labs. We will get him home on meds and have follow-up recommended. If he develops more pain, fevers, vomiting or other concerns he should return Lab Data Attestation: I reviewed the patient's lab results. Labs: Laboratory Results - last 24 hr 08/15/21 08/15/21 03:50 03:50 WBC 10.2 RBC 5.18 Hgb 15.7 Hct 46.8 MCV 90.3 MCH 30.3 MCHC 33.5 RDW Std Deviation 42.2 RDW Coeff of Joshua 12.9 Plt Count 240 MPV 11.7 Immature Gran % (Auto) 0.400 Neut % (Auto) 63.0 Lymph % (Auto) 26.1 [place] % (Auto) 7.9 Eos % (Auto) 2.2 Baso % (Auto) 0.4 Absolute Neuts (auto) 6.4 Absolute Lymphs (auto) 2.65 Nucleated RBC % 0 Sodium 139 Potassium 3.9 Chloride 105 Carbon Dioxide 28.0 Anion Gap 6 BUN 8 Creatinine 0.95 Estim Creat Clear Calc 119.27 Est GFR (MDRD) Af Amer 118 Est GFR (MDRD) Non-Af 98 BUN/Creatinine Ratio 8.4 L Glucose 89 Calcium 9.1 Total Bilirubin 0.30 AST 20 ALT 21 Alkaline Phosphatase 59 Total Protein 7.9 Albumin 4.0 Globulin 3.9 Albumin/Globulin Ratio 1.0 Lipase 143 EKG Initial EKG: Comments: EKG done for upper abdominal pain sinus rhythm with overall rate of 75. No ventricular ectopy. Mild early repolarization but no sign of infarct or ischemia. MD interval QRS duration and QTC normal. This is similar to 07 April of this year Discharge Plan Triage Chief Complaint: Chest Pain ED Provider: Tobi Rodriguez Dx/Rx/DC Orders Clinical Impression: Acute upper abdominal pain Instructions: ED Epigastric Pain Uncertain Cause Prescriptions: New esomeprazole magnesium [Nexium] 20 mg capsule,delayed release(DR/EC) 20 mg PO DAILY Qty: 30 0RF ondansetron 4 mg tablet,disintegrating 4 mg PO Q8H PRN (Reason: nausea and vomiting) Qty: 10 0RF Primary Care Provider: Care Physician,No Primary Referrals: Asim Mejia MD [STAFF PHYSICIAN] - 3-5 Days Care Physician,No Primary [Primary Care Provider] - Disposition Disposition: Home, Self Care
[2021-08-15 04:11] LABS: Absolute Lymphocyte Count 2.65 X10^3/uL (0.83-4.51); Absolute Neutrophil Count 6.4 X10^3/uL (2.0-7.7); Basophil# 0.04 X10^3/uL; Basophil% 0.4 % (0-1); Eosinophil# 0.22 X10^3/uL; Eosinophils% 2.2 % (0-5); Hematocrit 46.8 % (40-54); Hemoglobin 15.7 g/dL (13.0-16.5); Lymphocyte # 2.65 X10^3/ul (0.83-4.51); Lymphocyte % 26.1 % (19-41); Mean Corp Hgb Conc 33.5 g/dL (32-36); Mean Corpuscular Hgb 30.3 pg (27.0-32.0); Mean Corpuscular Volume 90.3 fL (80-94); Mean Platelet Vol. 11.7 fl (6.2-12.0); Monocyte% 7.9 % (0-10); NRBC Flagged by Analyzer 0 % (0-5); Neutrophil # 6.41 X10^3/uL (2.7-7.7); Platelet Count 240 K/mm3 (150-450); RBC Distribution Width CV 12.9 % (11.6-14.6); RBC Distribution Width SD 42.2 fl (35.1-43.9); Red Blood Count 5.18 M/mm3 (4.6-6.2); White Blood Count 10.2 K/mm3 (4.4-11.0)
[2021-08-15] MEDS: Ondansetron 4 MG/2 ML Vial IV (04:21)
[2021-08-15] MEDS: Dicyclomine 20 MG/2 ML Vial IM (04:21)
[2021-08-15 04:36] LABS: AST(SGOT) 20 U/L (15-37); Alanine Aminotransfer ALT/SGPT 21 U/L (16-61); Alkaline Phosphatase 59 U/L (45-117); Anion Gap 6 (5-15); BUN 8 mg/dL (7-18); BUN/Creat Ratio 8.4 RATIO (10-20); Calcium,Total 9.1 mg/dL (8.5-10.1); Chloride 105 mmol/L (98-107); Creatinine, Serum 0.95 mg/dL (0.70-1.30); EST Glomerular Filtration Rate 98 mL/min (>60); Est Glom Filt Rate - Afr Amer 118 mL/min (>60); Estimated Creatinine Clearance 119.27 ml/min; Globulin 3.9 g/dL (2.2-4.2); Glucose 89 mg/dL (74-106); Lipase 143 U/L (73-393); Potassium 3.9 mmol/L (3.5-5.1); Protein, Total 7.9 g/dL (6.4-8.2); Sodium Level 139 mmol/L (136-145)
[2021-08-15 05:16] VITALS: BP 149/91; PULSE 80; RESP 16; O2SAT 99
== END 2021-08-15 05:16 | disposition home or self-care (01) ==
PROVIDERS: Emergency Provider Emergency Medicine; Visit Provider Emergency Medicine
DX: R10.11 Right upper quadrant pain (principal); F17.210 Nicotine dependence, cigarettes, uncomplicated; G47.33 Obstructive sleep apnea (adult) (pediatric)
CPT/HCPCS: 80053; 83690; 85025; 93005; 96365; 96372; 96375; 99283; A4216; J2405; J3490

== ENCOUNTER 2021-09-30 18:27 | Emergency (ER) | payer MEDICAID, SELFPAY ==
[2021-09-30 18:28] VITALS: BP 130/83; PULSE 89; RESP 16; TEMP 36.6; O2SAT 99; BMI 23.0
--- NOTE | 2021-09-30 18:45 | EDS_ITS ---
HPI History of Present Illness Chief Complaint: Rash Informant: patient Onset/Context/Timing Onset: Days (3 days) Context: Gradual Onset Current Severity: Mild Maximum Severity: Mild Narrative Narrative: Patient presents with itchy rash on his bilateral upper extremities and chest. He states that he was helping clear some plants from his grandmother's house a week ago. 3 days ago he developed an itchy rash. He was seen at [facility] and it was felt he likely had poison oak. He was started on prednisone and it appears that he is taking 30 mg twice daily. He is also trying Benadryl at home. He complains of continued rash and itch. He has an allergy to Pepcid. [facility] Medical History Abdominal pain KENNETH (obstructive sleep apnea) Home Medications esomeprazole magnesium 20 mg capsule,delayed release (Nexium) 20 mg PO DAILY #30 caps 08/15/21 [Rx Last Taken Unknown] ondansetron 4 mg disintegrating tablet 4 mg PO Q8H PRN nausea and vomiting #10 tabs 08/15/21 [Rx Last Taken Unknown] hydroxyzine pamoate 50 mg capsule (Vistaril) 50 mg PO TID PRN itching #10 caps 09/30/21 [Rx Last Taken Unknown] Allergy/AdvReac Type Severity Reaction Status Date / Time famotidine [From Pepcid] Allergy Angioedema Verified 09/30/21 18:29 Penicillins Allergy Swelling Verified 09/30/21 18:29 Family History Father Asthma Hypertension CAD (coronary artery disease) Cancer Seizures CVA (cerebral vascular accident) Surgical History Status post adenoidectomy Social History Smoking Status: Current some day smoker tobacco type: cigarettes alcohol intake: current alcohol intake frequency: a few times a month ROS ROS ED Constitutional Constitutional ED: Denies chills or fever(s) Eyes Eyes: Denies change in vision or discharge from eye(s) ENT ENT ED: Denies discharge from eye(s), rhinorrhea or sore throat Cardiovascular Cardiovascular: Denies chest pain or palpitations Respiratory/Chest Respiratory/Chest: Denies cough or dyspnea Gastrointestinal Gastrointestinal: Denies abdominal pain, diarrhea, nausea or vomiting Genitourinary Genitourinary ED: Denies dysuria Musculoskeletal Musculoskeletal: Denies back pain or extremity pain Integumentary Reports rash; Denies Abrasions Neurologic Neurologic: Denies headache(s) or weakness Psychiatric Psychiatric: Denies anxiety or depression Allergic/Immunologic Allergic/Immunologic ED: Denies lip swelling or urticaria EXAM Physical Exam Const Vital Signs: 09/30/21 18:28 Temperature 97.8 F Temperature Source Temporal Pulse Rate 89 Respiratory Rate 16 Blood Pressure 130/83 H Blood Pressure Mean 98 Pulse Ox 99 Oxygen Delivery Method Room Air Positive well nourished and well developed General Appearance ED: well developed HEENT Reports moist mucous membranes Eyes PERRL and EOMs intact bilaterally Chest Wall inspection of chest normal and palpation of chest normal Resp normal respiratory effort and clear to auscultation bilaterally Cardio regular rate and regular rhythm GI normal to inspection, nondistended, normoactive bowel sounds and non-tender Neuro oriented x3 and no sensory deficits noted Motor Exam: strength 5/5 throughout Skin Skin Narrative: Erythematous rash scattered over the bilateral upper extremities and chest. No urticarial lesions. 1 small area of fluid-filled blisters on the inside of the right elbow. No sign of secondary bacterial infection at this time. MDM MDM MDM Narrative Medical decision making narrative: Patient is already taking Benadryl and prednisone. I did offer him an injection of Kenalog here to see if that would stay in his system better. I will also write him for first Vistaril to help with the itching. He will continue appropriate topical therapy. Discharge Plan Triage Chief Complaint: Rash ED Provider: Maryam Miranda Dx/Rx/DC Orders Clinical Impression: Allergic dermatitis Instructions: ED Contact Dermatitis Prescriptions: New hydroxyzine pamoate [Vistaril] 50 mg capsule 50 mg PO TID PRN (Reason: itching) Qty: 10 0RF No Action esomeprazole magnesium [Nexium] 20 mg capsule,delayed release(DR/EC) 20 mg PO DAILY Qty: 30 0RF ondansetron 4 mg tablet,disintegrating 4 mg PO Q8H PRN (Reason: nausea and vomiting) Qty: 10 0RF Primary Care Provider: Care Physician,No Primary Referrals: Rosemary Flores MD [Med Staff - Staff Research Associate] - As Needed Care Physician,No Primary [Primary Care Provider] - Disposition Disposition: Home, Self Care
[2021-09-30] MEDS: Triamcinolone Acetonide 40 MG/ML Vial IM (18:56)
[2021-09-30] MEDS: hydrOXYzine PAM 25 MG Capsule 50 MG PO (18:56)
== END 2021-09-30 19:02 | disposition home or self-care (01) ==
LOC: ED 18:52
PROVIDERS: Emergency Provider Emergency Medicine; Visit Provider Emergency Medicine
DX: L23.9 Allergic contact dermatitis, unspecified cause (principal); F17.210 Nicotine dependence, cigarettes, uncomplicated
CPT/HCPCS: 96372; 99283

== ENCOUNTER 2023-06-20 02:32 | Emergency (ER) | payer MEDICAID, SELFPAY ==
[2023-06-20 02:33] VITALS: BP 141/105; PULSE 89; RESP 16; TEMP 36.9; O2SAT 99; BMI 23.0
[2023-06-20 02:43] LABS: Absolute Lymphocyte Count 3.41 X10^3/uL (0.83-4.51); Absolute Neutrophil Count 5.9 X10^3/uL (2.0-7.7); Basophil# 0.04 X10^3/uL; Basophil% 0.4 % (0-1); Hematocrit 46.9 % (40-54); Hemoglobin 15.8 g/dL (13.0-16.5); Lymphocyte # 3.41 X10^3/ul (0.83-4.51); Lymphocyte % 33.6 % (19-41); Mean Corp Hgb Conc 33.7 g/dL (32-36); Mean Corpuscular Hgb 29.9 pg (27.0-32.0); Mean Corpuscular Volume 88.7 fL (80-94); Mean Platelet Vol. 10.8 fl (6.2-12.0); Monocyte% 6.9 % (0-10); NRBC Flagged by Analyzer 0 % (0-5); Neutrophil # 5.87 X10^3/uL (2.7-7.7); Neutrophil % 57.8 % (47-70); Platelet Count 286 K/mm3 (150-450); RBC Distribution Width CV 12.4 % (11.6-14.6); RBC Distribution Width SD 40.2 fl (35.1-43.9); Red Blood Count 5.29 M/mm3 (4.6-6.2); White Blood Count 10.2 K/mm3 (4.4-11.0)
[2023-06-20 03:01] LABS: ALB/GLOB Ratio 1.1 RATIO (0.9-2.4); AST(SGOT) 12 U/L (15-37); Alanine Aminotransfer ALT/SGPT 14 U/L (16-61); Alkaline Phosphatase 63 U/L (45-117); Anion Gap 8 (5-15); BUN 7 mg/dL (7-18); BUN/Creat Ratio 7.7 RATIO (10-20); Calcium,Total 9.4 mg/dL (8.5-10.1); Chloride 104 mmol/L (98-107); Creatinine, Serum 0.91 mg/dL (0.70-1.30); EST Glomerular Filtration Rate 101 mL/min (>60); Est Glom Filt Rate - Afr Amer 122 mL/min (>60); Estimated Creatinine Clearance 122.23 ml/min; Globulin 3.5 g/dL (2.2-4.2); Glucose 101 mg/dL (74-106); Potassium 3.3 mmol/L (3.5-5.1); Protein, Total 7.5 g/dL (6.4-8.2); Sodium Level 140 mmol/L (136-145)
--- NOTE | 2023-06-20 03:20 | CT_ITS ---
STUDY: CT ABDOMEN AND PELVIS WITH CONTRAST - URINARY TRACT REASON FOR EXAM: Male, 32 years old. abd pain RADIATION DOSAGE (If Supplied By Facility): CTDIvol = ( 7.66 ) mGy, DLP = ( 320.17 ) mGycm TECHNIQUE: IV 100mL Isovue-370 was administered. Transaxial images were obtained from the dome of the diaphragm to the symphysis pubis in the arterial, nephrographic and excretory phases. Multiplanar coronal and sagittal images were reformatted. Individualized Dose Optimization Techniques Were Used For This CT. COMPARISON: No relevant prior comparison study available FINDINGS: The visualized lung bases are unremarkable. The visualized portions of the heart are within normal limits. Normal liver. Normal gallbladder and extrahepatic biliary system. Normal spleen. Normal pancreas. Normal bilateral adrenal glands. Normal visualized stomach. Normal small intestine. Normal colon. There is is no evidence of acute appendicitis. Normal abdominal aorta. No retroperitoneal adenopathy. Normal right kidney. Normal left kidney. Normal urinary bladder. Normal abdominal wall. Normal osseous structures. CT/Abdomen/Pelvis W IV Cont ONLY IMPRESSION: No acute abnormality in the abdomen or pelvis. Electronically Signed: Olman Kang MD at 5:50 EDT ,
[2023-06-20] MEDS: 0.9% Normal Saline (1000mL) 1,000 ML 999 ML IV (03:29)
[2023-06-20] MEDS: Morphine 4 MG/ML Syringe IV (03:30)
[2023-06-20] MEDS: Ondansetron 4 MG/2 ML Vial IV (03:31)
[2023-06-20 04:17] LABS: Lipase 22 U/L (13-75)
[2023-06-20 04:33] VITALS: BP 98/55; PULSE 82; RESP 16; O2SAT 98
[2023-06-20 06:00] VITALS: RESP 18
[2023-06-20 06:04] LABS: Bacteria 0 SEEN /hpf (None Seen); Mucous, Urine 0 SEEN /hpf (<or=2+); Red Blood Cells-Urine 0 SEEN /hpf (0-5); Squamous Epithelial Cells - UA 0 SEEN /hpf (0-5); White Blood Cells 0 SEEN /hpf (0-5)
[2023-06-20 06:08] LABS: Color, Urine Yellow (Yellow); Glucose, Dipstick Normal (Normal); Ketone-Dipstick Negative (Negative); Leukocyte Esterase-Dipstick Negative /ul (Negative); Nitrite-Dipstick Negative (Negative); Occult Blood-Urine Negative /ul (Negative); Protein-Dipstick Negative (Negative); Specific Gravity, Urine 1.005 (1.002-1.030); Urine Bilirubin Dipstick Negative (Negative); Urine Clarity Clear (Clear); Urine Urobilinogen Normal (Normal); Urine pH 6.5 (5.0 - 8.0)
--- NOTE | 2023-06-20 06:20 | EDS_ITS ---
HPI History of Present Illness Chief Complaint: Abd Pain Informant: patient Narrative Narrative: Patient is a 32-year-old male past medical history of obstructive sleep apnea. He reports that roughly 20 to 30 minutes prior to arrival he developed lower abdominal discomfort with bouts of nausea and vomiting. He states after throwing up he does feel somewhat better. However he denies any fevers chills or known sick contact. He states that with his symptoms he was concern for potential infectious process and therefore comes in for evaluation. [facility] Medical History (Updated 06/28/23 @ 02:[address] Rafita Fong, DO) KENNETH (obstructive sleep apnea) Abdominal pain Home Medications ?Medication ?Instructions ?Recorded ?Last Taken ?Type ondansetron 4 mg disintegrating 4 mg PO TID PRN nausea and 06/20/23 Unknown Rx tablet vomiting #21 tabs oxycodone-acetaminophen 5 mg-325 1 tab PO Q6H PRN pain 3 days #12 06/20/23 Unknown Rx mg tablet (Percocet) tabs Allergy/AdvReac Type Severity Reaction Status Date / Time famotidine (From Pepcid) Allergy Angioedema Verified 09/30/21 18:29 Penicillins Allergy Swelling Verified 09/30/21 18:29 Family History Father Asthma Hypertension CAD (coronary artery disease) Cancer Seizures CVA (cerebral vascular accident) Surgical History (Updated 06/20/23 @ 02:38 by Dequan Child) S/P hernia surgery Status post adenoidectomy Social History Smoking Status: Current some day smoker tobacco type: cigarettes alcohol intake: current alcohol intake frequency: a few times a month [facility] ED Constitutional Constitutional ED: Denies chills or fever(s) ENT ENT ED: Denies sore throat Cardiovascular Cardiovascular: Denies chest pain Respiratory/Chest Respiratory/Chest: Denies cough or dyspnea Gastrointestinal Gastrointestinal: Reports abdominal pain, nausea and vomiting; Denies diarrhea Genitourinary Genitourinary ED: Denies dysuria Musculoskeletal Musculoskeletal: Denies myalgias Integumentary Denies rash Neurologic Neurologic: Denies headache(s) Hematologic/Lymphatic Hematologic/Lymphatic: Denies easy bleeding or easy bruising EXAM Physical Exam Const Vital Signs: 06/20/23 02:33 06/20/23 04:33 06/20/23 06:00 Temperature 98.4 F Temperature Source Temporal Pulse Rate 89 82 Respiratory Rate 16 16 18 Blood Pressure 141/105 H 98/55 L Blood Pressure Mean 117 69 Pulse Ox 99 98 Oxygen Delivery Method Room Air Room Air Positive well nourished and well developed General Appearance ED: well developed; Negative for pallor HEENT Reports moist mucous membranes HEENT Narrative: No tongue or lip swelling no oral lesions no airway edema or compromise No signs of infection noted in the posterior pharynx Eyes PERRL and EOMs intact bilaterally General Eye ED: Negative for scleral icterus Neck supple Neck Narrative: No nuchal rigidity or meningeal signs noted Resp normal respiratory effort and clear to auscultation bilaterally Cardio regular rate and regular rhythm Rate: other Other Details: Heart is regular rate and rhythm without murmurs rubs or gallop Radial and carotid pulses are equal and symmetric GI non-distended and no masses GI Narrative: Abdomen is soft and nondistended with normal active bowel sounds. Patient has pain on palpation in the lower abdomen diffusely but greatest in the right lower quadrant. Negative heel strike psoas and obturator signs. No peritoneal signs or pulsatile mass Auscultation: normoactive bowel sounds Palpation: soft Back/Spine no CVA tenderness Extremity normal to inspection Neuro oriented x3, CN's II-XII intact bilaterally and no sensory deficits noted Sensorium / Orientation: alert Motor Exam: strength 5/5 throughout Psych mental status grossly normal Skin no rashes or lesions noted and no wounds General Skin Exam: Negative for jaundice or pallor MDM MDM MDM Narrative Medical decision making narrative: Patient presented to the ER hypertensive otherwise with stable vitals. Differential diagnosis is for viral stomach infection such as [place] or rotavirus versus acute appendicitis versus ileus versus obstruction versus biliary colic versus acute cholecystitis versus pancreatitis. Secondary to his basic workup was obtained as well as a CT scan with IV contrast. Labs revealed no clinically significant findings and CT scan also revealed no signs of infectious or inflammatory or obstructive pathology. After being treated the patient reported feeling better and on reevaluation his abdomen is soft and nonsurgical. Therefore at this time with improvement of symptoms and negative workup there is no need for further evaluation in the hospital and he is otherwise safe for discharge History & Record Review Discussion w/independent historian: Patient Lab Data Attestation: I reviewed the patient's lab results. Labs: Laboratory Results - last 24 hr 06/20/23 06/20/23 02:39 04:07 WBC 10.2 RBC 5.29 Hgb 15.8 Hct 46.9 MCV 88.7 MCH 29.9 MCHC 33.7 RDW Std Deviation 40.2 RDW Coeff of Joshua 12.4 Plt Count 286 MPV 10.8 Immature Gran % (Auto) 0.300 Neut % (Auto) 57.8 Lymph % (Auto) 33.6 [place] % (Auto) 6.9 Eos % (Auto) 1.0 Baso % (Auto) 0.4 Absolute Neuts (auto) 5.9 Absolute Lymphs (auto) 3.41 Nucleated RBC % 0 Sodium 140 Potassium 3.3 L Chloride 104 Carbon Dioxide 28.0 Anion Gap 8 BUN 7 Creatinine 0.91 Estim Creat Clear Calc 122.23 Est GFR (MDRD) Af Amer 122 Est GFR (MDRD) Non-Af 101 BUN/Creatinine Ratio 7.7 L Glucose 101 Calcium 9.4 Total Bilirubin 0.60 AST 12 L ALT 14 L Alkaline Phosphatase 63 Total Protein 7.5 Albumin 4.0 Globulin 3.5 Albumin/Globulin Ratio 1.1 Lipase 22 Radiography Diagnostic Testing: Clinical Impression(s) from Imaging Studies Abdomen/Pelvis CT 06/20/23 03:20 IMPRESSION: No acute abnormality in the abdomen or pelvis. Electronically Signed: Olman Kang MD at 5:50 EDT Reading Location ID and State: [address] [place] [address] Tel , Service support , Discharge Plan Triage Chief Complaint: Abd Pain Other Complaint: Nausea/Vomiting ED Provider: Rafita Fong Dx/Rx/DC Orders Clinical Impression: Nonspecific abdominal pain, Nausea & vomiting, History of obstructive sleep apnea Instructions: Abdominal Pain, ED Gastroenteritis, Viral (Adult) Prescriptions: New ondansetron 4 mg tablet,disintegrating 4 mg PO TID PRN (Reason: nausea and vomiting) Qty: 21 0RF oxycodone-acetaminophen [Percocet] 5-325 mg tablet 1 tab PO Q6H PRN (Reason: pain) 3 Days Qty: 12 0RF Primary Care Provider: Care Physician,No Primary Referrals: Corey Dasilva MD [Med Staff - Active Staff] - Care Physician,No Primary [Primary Care Provider] - Print Language: Maldivian Disposition Disposition: Home, Self Care Discharge Date/Time: 06/20/23 06:33
[2023-06-20 06:31] VITALS: BP 127/88; PULSE 61; RESP 15; TEMP 36.4; O2SAT 99
== END 2023-06-20 06:33 | disposition home or self-care (01) ==
PROVIDERS: Emergency Provider Emergency Medicine; Visit Provider Emergency Medicine
DX: R10.9 Unspecified abdominal pain (principal); R11.2 Nausea with vomiting, unspecified; F17.210 Nicotine dependence, cigarettes, uncomplicated; G47.33 Obstructive sleep apnea (adult) (pediatric)
CPT/HCPCS: 74177; 80053; 81001; 83690; 85025; 96361; 96374; 96375; 99283; J7030; Q9967; A4216; J2405

== ENCOUNTER 2023-08-28 22:52 | Emergency (ER) | payer MEDICAID, SELFPAY ==
[2023-08-28 22:52] VITALS: BP 132/93; PULSE 88; RESP 17; TEMP 36.4; O2SAT 100; BMI 20.9
--- NOTE | 2023-08-28 23:13 | EX.ED.GENINJ ---
HPI History of Present Illness Chief Complaint: Head Injury Informant: patient Narrative Narrative: Patient states yesterday he opened a door and did not realize there was a nail sticking out of it, the nail struck him in the face, surprising him. He sustained a minor abrasion. He woke up this morning and the right side of his neck down into the right side of his back has been hurting, hurts more to move, has been there all day. Denies any neurologic symptoms, headaches, vomiting, or other symptoms. He did not have the neck and back pain yesterday. Tetanus Immunization: >10 years [facility] Medical History KENNETH (obstructive sleep apnea) Abdominal pain Home Medications ?Medication ?Instructions ?Recorded ?Last Taken ?Type NK 08/28/23 Unknown History Allergy/AdvReac Type Severity Reaction Status Date / Time famotidine (From Pepcid) Allergy Angioedema Verified 08/28/23 22:52 Penicillins Allergy Swelling Verified 08/28/23 22:52 Family History Father Asthma Hypertension CAD (coronary artery disease) Cancer Seizures CVA (cerebral vascular accident) Surgical History S/P hernia surgery Status post adenoidectomy Social History Smoking Status: Current some day smoker tobacco type: smokeless tobacco alcohol intake: current alcohol intake frequency: a few times a month ROS ROS ED Eyes Eyes: Denies change in vision Musculoskeletal Musculoskeletal: Reports back pain and neck pain Integumentary Reports Abrasions Neurologic Neurologic: Denies headache(s), paresthesias or weakness EXAM Physical Exam Const Vital Signs: 08/28/23 22:52 08/28/23 23:05 Temperature 97.6 F L Temperature Source Temporal Pulse Rate 88 Respiratory Rate 17 Respiratory Effort Normal Non-Labored Blood Pressure 132/93 H Blood Pressure Mean 106 Pulse Ox 100 Oxygen Delivery Method Room Air Positive well nourished and well developed General Appearance ED: well developed and NAD HEENT HEENT Narrative: superficial abrasion 0.3cm above R eyebrow, no tenderness or signs of infection atraumatic Eyes PERRL and EOMs intact bilaterally Neck full ROM Neck Narrative: Right paraspinal cervical tenderness without midline or left-sided tenderness. Full range of motion. Tenderness extends down into the rhomboids. No bony scapular or spinal tenderness. General: tenderness Back/Spine normal to inspection Back/Spine Narrative: No lumbar tenderness. Thoracic Spine / Upper Back: Negative for thoracic spinal tenderness Extremity normal to inspection and full ROM Neuro oriented x3, CN's II-XII intact bilaterally, moves all extremities, no focal motor deficits, no sensory deficits noted and gait normal Skin Skin Narrative: Minor superficial abrasion above right eyebrow with no signs of infection or bleeding. MDM MDM MDM Narrative Medical decision making narrative: Minor abrasion does not appear to be infected and does not require any repair or Dermabond. We updated his tetanus. This is all consistent with cervical and trapezius strain, I may have rhomboid involvement but the trapezius overlies this and is tender. There is no bony tenderness in the neck or the back. Reassured that the delayed onset of pain is also consistent with myofascial strain. He was given injection of Toradol and cyclobenzaprine here and discharged home with supportive care instructions. We considered prescriptions but I think [id number] medications will be reasonable for this. Discharge Plan Triage Chief Complaint: Head Injury ED Provider: Julio Santos Dx/Rx/DC Orders Clinical Impression: Acute cervical myofascial strain, Trapezius muscle strain, Immunization, tetanus-diphtheria, Abrasion of face Instructions: Tdap Vaccine, ED Neck Sprain or Strain Prescriptions: No Action NK Primary Care Provider: Care Physician,No Primary Referrals: Care Physician,No Primary [Primary Care Provider] - Doctor,Your [Non-Staff] - As Needed Print Language: [place] Citizen Disposition Disposition: Home, Self Care
[2023-08-28] MEDS: Ketorolac 60 MG/2 ML Vial IM (23:24)
[2023-08-28] MEDS: Diphth,Pertuss(Acell),Tet Vac 0.5 ML Vial IM (23:24)
[2023-08-28] MEDS: cycloBENZAPRine HCl 10 MG Tablet PO (23:25)
[2023-08-28 23:28] VITALS: BP 139/89; PULSE 73; RESP 16; TEMP 36.4; O2SAT 98
== END 2023-08-28 23:46 | disposition home or self-care (01) ==
PROVIDERS: Emergency Provider Emergency Medicine; Visit Provider Emergency Medicine
DX: S16.1XXA Strain of muscle, fascia and tendon at neck level, initial encounter (principal); S29.012A Strain of muscle and tendon of back wall of thorax, initial encounter; S00.81XA Abrasion of other part of head, initial encounter; F17.220 Nicotine dependence, chewing tobacco, uncomplicated; G47.33 Obstructive sleep apnea (adult) (pediatric); X58.XXXA Exposure to other specified factors, initial encounter
CPT/HCPCS: 90715; 96372; 99282

== ENCOUNTER 2024-01-31 00:52 | Emergency (ER) | payer MEDICAID, SELFPAY ==
[2024-01-31 00:53] VITALS: BP 136/98; PULSE 82; RESP 16; TEMP 36.7; O2SAT 99; BMI 21.2
--- NOTE | 2024-01-31 01:40 | CT_ITS ---
EXAM: CT HEAD WITHOUT INTRAVENOUS CONTRAST CLINICAL INDICATION: head injury TECHNIQUE: Multiple axial images were obtained of the head without intravenous contrast. This CT exam was performed using one or more of the following dose reduction techniques: automated exposure control, adjustment of the mA and/or kV according to patient size, and/or use of iterative reconstruction technique. RADIATION DOSE: CTDIvol = 44.99 mGy, DLP = 829.85 mGy-cm COMPARISON: No relevant prior studies available. FINDINGS: BRAIN AND EXTRA-AXIAL SPACES: Unremarkable. No intra- or extra-axial hemorrhage. No evidence of acute infarct. No intracranial mass or mass effect. There is preservation of the vora/white matter interface. Posterior fossa structures are unremarkable. Ventricles are appropriate for age. No hydrocephalus. Basal cisterns are patent. BONES/JOINTS: Unremarkable. No discrete lytic or blastic abnormalities. SINUSES: Unremarkable as visualized. Clear. MASTOID AIR CELLS: Unremarkable. Clear. ORBITS: Visualized globes, extraocular muscles, optic nerves and retrobulbar fat appear unremarkable. CT/Brain/Head without Contrast IMPRESSION: Negative head/brain CT without intravenous contrast. Electronically Signed: Wojciech Miranda MD at 1:55 EST ,
--- NOTE | 2024-01-31 01:40 | CT_ITS ---
EXAM: CT CERVICAL SPINE WITHOUT INTRAVENOUS CONTRAST CLINICAL INDICATION: neck injury TECHNIQUE: Helically acquired images were obtained of the cervical spine without intravenous contrast. 2D reformatted images were reviewed. This CT exam was performed using one or more of the following dose reduction techniques: automated exposure control, adjustment of the mA and/or kV according to patient size, and/or use of iterative reconstruction technique. RADIATION DOSE: CTDIvol = 15.35 mGy, DLP = 309.44 mGy-cm COMPARISON: CT cervical spine 04/22/2009 FINDINGS: VERTEBRAE: Unremarkable. No fracture. No traumatic subluxation. No discrete lytic or blastic abnormality. Normal alignment. Normal craniocervical junction and cervicothoracic junction. DISCS/SPINAL CANAL/NEURAL FORAMINA: Unremarkable. Disc heights are preserved. No critical stenosis. SOFT TISSUES: Unremarkable. No prevertebral soft tissue swelling. LYMPH NODES: Unremarkable. No cervical adenopathy. LUNG APICES: Unremarkable as visualized. Clear. CT/Spine Cervical without Contras IMPRESSION: No evidence of acute cervical spinal fracture or spondylolisthesis. Electronically Signed: Wojciech Miranda MD at 2:06 EST ,
[2024-01-31] MEDS: Acetaminophen 500 MG Tablet 1000 MG PO (01:48)
[2024-01-31] MEDS: Ondansetron ODT 4 MG Tablet PO (01:48)
--- NOTE | 2024-01-31 01:54 | EX.ED.GENINJ ---
HPI History of Present Illness Chief Complaint: Head Injury Informant: patient and spouse/S.O. Narrative Narrative: Presents here for evaluation recurrent head injury headache dizziness and nausea. He was in skilled nursing for couple months, he was released 2 days ago. States while in skilled nursing while sleeping hit his head on the wall multiple times. He had headache symptoms. He was seen by nursing there diagnosed concussions. Yesterday states while working on the car put his head up hit his head on the axle. Worsening headache and dizziness. Had nausea. No anticoagulation medications. Allergies to penicillin Pepcid. No medications taken. Also reports neck pain. No arm weakness or paresthesias. Prior similar symptoms: Yes PFSH PFSH Medical History KENNETH (obstructive sleep apnea) Abdominal pain Home Medications ?Medication ?Instructions ?Recorded ?Last Taken ?Type ondansetron 4 mg disintegrating 4 mg PO Q8H PRN PRN Nausea #10 tabs 01/31/24 Unknown Rx tablet Allergy/AdvReac Type Severity Reaction Status Date / Time famotidine (From Pepcid) Allergy Angioedema Verified 01/31/24 01:00 Penicillins Allergy Swelling Verified 01/31/24 01:00 Family History Father Asthma Hypertension CAD (coronary artery disease) Cancer Seizures CVA (cerebral vascular accident) Surgical History S/P hernia surgery Status post adenoidectomy Social History Smoking Status: Current some day smoker tobacco type: smokeless tobacco alcohol intake: current alcohol intake frequency: a few times a month ROS ROS ED Constitutional Constitutional ED: Denies chills, fever(s) or sweats ENT ENT ED: Denies sore throat Cardiovascular Cardiovascular: Denies chest pain, leg edema, palpitations or racing heartbeat Respiratory/Chest Respiratory/Chest: Denies cough, dyspnea or dyspnea on exertion Gastrointestinal Gastrointestinal: Reports nausea; Denies abdominal pain, diarrhea or vomiting Genitourinary Genitourinary ED: Denies dysuria, hematuria or urinary frequency Musculoskeletal Musculoskeletal: Reports neck pain; Denies back pain or extremity pain Integumentary Denies rash or wounds Neurologic Neurologic: Reports headache(s); Denies paresthesias or weakness EXAM Physical Exam Const Vital Signs: 01/31/24 00:53 01/31/24 00:59 01/31/24 02:52 Temperature 98.1 F 98.0 F Temperature Source Oral Pulse Rate 82 75 Respiratory Rate 16 18 Respiratory Effort Normal Blood Pressure 136/98 H 121/82 H Blood Pressure Mean 110 95 Pulse Ox 99 95 Oxygen Delivery Method Room Air Room Air Positive well nourished and well developed General Appearance ED: well developed and NAD HEENT Reports moist mucous membranes normocephalic and atraumatic Eyes General Eye ED: Yes normal appearance of both eyes Neck full ROM Neck Narrative: Midline tenderness without step-offs. Chest Wall Chest: Negative for tenderness Resp normal respiratory effort and normal air movement Effort and Inspection: symmetric chest movement; Negative for respiratory distress Cardio regular rate, regular rhythm and no murmurs Peripheral Pulses: pulses 2+ throughout GI normal to inspection, nondistended, normoactive bowel sounds and non-tender Palpation: Negative for guarding or rebound tenderness present Extremity normal to inspection General Extremety ED: Negative for edema or tenderness General Extremity: Negative for edema Neuro oriented x3, CN's II-XII intact bilaterally and no sensory deficits noted Neuro Narrative: No focal deficits. No weakness of the upper extremities. Sensorium / Orientation: awake and alert Skin no rashes or lesions noted and no wounds MDM MDM MDM Narrative Medical decision making narrative: Interventions / MDM: Differential diagnosis: Concussion, neck strain Diagnosis considered but do not suspect: Intracranial hemorrhage, fracture however CT negative. My EKG interpretation: N/A Imaging independently reviewed and interpreted by myself: CT brain: No acute process. CT cervical spine: No acute process. Also read by radiology. External documents reviewed: N/A Test considered but not ordered:N/A ED course: Patient presented concussion symptoms have a recurrent head injury worsening headache dizziness and nausea. Trauma scans head and neck obtained. Ordered for Tylenol and Zofran for symptom control. Image studies negative. Discussed continue Tylenol as needed. He was given prescription for Zofran to use as needed. He is given follow-up with neurology due to recurrent head injuries with concussion symptoms. Re-evaluation: stable Disposition discussed with patient/family/significant other: Patient and significant other Case discussed with consulting clinician: N/A This note was generated with Dragon dictation software. It may contain incorrect words, spelling, and punctuation that were not noted in checking the note before signing. Radiography Diagnostic Testing: Clinical Impression(s) from Imaging Studies Brain CT 01/31/24 01:40 IMPRESSION: Negative head/brain CT without intravenous contrast. Electronically Signed: Wojciech Miranda MD at 1:55 EST Reading Location ID and State: [facility] / [place] Tel , Service support , Cervical Spine CT 01/31/24 01:40 IMPRESSION: No evidence of acute cervical spinal fracture or spondylolisthesis. Electronically Signed: Wojciech Miranda MD at 2:06 EST Reading Location ID and State: [facility] / [place] Tel , Service support , Discharge Plan Triage Chief Complaint: Head Injury ED Provider: Laron Sage Dx/Rx/DC Orders Clinical Impression: Concussion, Head injury, Neck strain Instructions: ED Concussion, ED Neck Sprain or Strain Prescriptions: New ondansetron 4 mg tablet,disintegrating 4 mg PO Q8H PRN PRN (Reason: Nausea) Qty: 10 0RF Primary Care Provider: Care Physician,No Primary Referrals: Elmer Whittaker MD [Non-Staff -Ordering Privileges] - 1-2 Weeks Care Physician,No Primary [Primary Care Provider] - Activity Restrictions/Additional Instructions: CT brain and cervical spine negative. Continue Tylenol 1 g every 6 hours as needed for headache and neck muscle pain. Use Zofran as needed. Follow-up with neurology for evaluation. Print Language: Greenlandic Disposition Disposition: Home, Self Care Discharge Date/Time: 01/31/24 02:53
[2024-01-31 02:52] VITALS: BP 121/82; PULSE 75; RESP 18; TEMP 36.7; O2SAT 95
== END 2024-01-31 02:53 | disposition home or self-care (01) ==
PROVIDERS: Emergency Provider Emergency Medicine; Visit Provider Emergency Medicine
DX: S06.0X0A Concussion without loss of consciousness, initial encounter (principal); S16.1XXA Strain of muscle, fascia and tendon at neck level, initial encounter; G47.33 Obstructive sleep apnea (adult) (pediatric); F17.220 Nicotine dependence, chewing tobacco, uncomplicated; X58.XXXA Exposure to other specified factors, initial encounter
CPT/HCPCS: 70450; 72125; 99284